=== PATIENT | male | born 1955 | race Caucasian/White ===

== ENCOUNTER 2018-06-10 08:05 | Day surgery (SDC) | payer BC ==
[2018-06-05 15:03] VITALS: BMI 35.2
[~2018-06-10 08:05] MED LIST: ONDANSETRON 4 MG/2 ML VIAL IVP ONE
[2018-06-10 09:07] VITALS: TEMP 97.6
[2018-06-10] MEDS ORDERED: LIDOCAINE 1% 20 ML VIAL (10MG/ML) FOR IV START INTRADERMA ONE (09:16)
[2018-06-10] MEDS ORDERED: LACTATED RINGERS 1,000 ML IV ONE (09:16)
[2018-06-10] MEDS ORDERED: PROPOFOL 10 MG/ML 20 ML VIAL IV ONE (09:50)
--- NOTE | 2018-06-10 09:54 | P.GSHP ---
History of Present Illness H&P Date: 06/10/18 Chief Complaint: Diarrhea, screening colonoscopy This a 62-year-old male referred from Dr. Ilya Zamarripa. Patient has safer swing colonoscopy. He's had issues with diarrhea. Past Medical History Past Medical History: GERD/Reflux, Hyperlipidemia, Hypertension Additional Past Medical History / Comment(s): FREQUENT DIARRHEA, BLOATING AND ABD. PAIN, HX COLON POLYPS, HX HIATAL HERNIA. History of Any Multi-Drug Resistant Organisms: MRSA Date of last positivie culture/infection: 15-20 YRS AGO MDRO Source:: RIGHT LEG (POST-OP VEIN STRIPPING) Past Surgical History: Cholecystectomy, Hernia Repair, Joint Replacement, Orthopedic Surgery Additional Past Surgical History / Comment(s): BILATERAL KNEE REPLACEMENT. VARICOSE VEIN STRIPPING. EGD. ORIF RT ANKLE, STEPHY FUNDLAPLASTY Past Anesthesia/Blood Transfusion Reactions: No Reported Reaction Smoking Status: Current every day smoker - Past Family History Father Family Medical History: Cancer Medications and Allergies Home Medications Medication Instructions Recorded Confirmed Type Ipratropium/Albuterol Sulfate 1 puff INHALATION RT-HS PRN 09/05/14 06/10/18 History [Combivent Respimat Inhaler] Simvastatin 20 mg PO HS 09/05/14 06/10/18 History Valsartan/Hydrochlorothiazide 0.5 tab PO DAILY 09/05/14 06/10/18 History [Valsartan-Hctz 80-12.5 mg Tab] Aspirin EC [Ecotrin] 81 mg PO HS 12/15/14 06/05/18 History Celecoxib [CeleBREX] 200 mg PO DAILY 04/03/15 06/05/18 History Allergies Allergy/AdvReac Type Severity Reaction Status Date / Time No Known Allergies Allergy Verified 06/05/18 14:58 Surgical - Exam Vital Signs Temp Pulse Resp BP Pulse Ox 97.6 F 57 L 16 134/85 100 06/10/18 09:03 06/10/18 09:03 06/10/18 09:03 06/10/18 09:03 06/10/18 09:03 - General well developed, no distress - Eyes PERRL - ENT normal pinna - Neck no masses - Respiratory normal expansion - Cardiovascular Rhythm: regular - Abdomen Abdomen: soft, non tender Assessment and Plan Assessment: Diarrhea, we'll perform screening colonoscopy.
--- NOTE | 2018-06-10 10:09 | P.OP ---
Date of Procedure: 06/10/18 Preoperative Diagnosis: Screening colonoscopy Diarrhea Postoperative Diagnosis: Normal colonoscopy Sigmoid colon biopsy pathology pending Procedure(s) Performed: Colonoscopy Anesthesia: MAC Surgeon: Mitch Flaherty Pathology: other (Random sigmoid) Condition: stable Disposition: PACU Description of Procedure: PROCEDURE: The patient was placed on the endoscopy table in the lateral position. Digital rectal examination was performed which revealed no abnormalities. The prostate was symmetrical without nodules. Flexible colonoscope was then placed in the patient's anus and passed throughout the entire colon. The ileocecal valve was visualized. The cecum, ascending, transverse, descending and sigmoid colon were normal. Due to the patient's symptoms diarrhea a random biopsied; was performed. The rectum was normal as well. There were no masses, polyps or diverticula noted in the entire colon. SUMMARY OF FINDINGS: Normal colonoscopy.
[2018-06-10 10:23] VITALS: PULSE 53
[2018-06-10 10:35] VITALS: BP 144/82; RESP 18
== END 2018-06-10 11:00 | disposition home or self-care (01) ==
LOC: ORWHC2ENDO 08:05
PROVIDERS: ATTEND Surgery
DX: R19.7 Diarrhea, unspecified (principal); K21.9 Gastro-esophageal reflux disease without esophagitis; I10 Essential (primary) hypertension; E78.5 Hyperlipidemia, unspecified; E66.9 Obesity, unspecified; Z68.35 Body mass index [BMI] 35.0-35.9, adult; F17.210 Nicotine dependence, cigarettes, uncomplicated; Z79.1 Long term (current) use of non-steroidal anti-inflammatories (NSAID); Z79.82 Long term (current) use of aspirin; Z79.899 Other long term (current) drug therapy; Z86.010 Personal history of colon polyps; Z86.14 Personal history of Methicillin resistant Staphylococcus aureus infection; Z96.653 Presence of artificial knee joint, bilateral; Z90.49 Acquired absence of other specified parts of digestive tract; Z80.9 Family history of malignant neoplasm, unspecified
CPT/HCPCS: 45380; 88305; J2704

== ENCOUNTER → 2018-07-31 | Outpatient (CLI) | payer BC ==
--- NOTE | 2018-07-31 08:48 | XR ---
EXAMINATION TYPE: XR chest 2V DATE OF EXAM: 07/31/2018 COMPARISON: NONE HISTORY: Cough and congestion. TECHNIQUE: Frontal and lateral views of the chest are obtained. FINDINGS: Cannot exclude underlying emphysematous changes as there is flattening of hemidiaphragms an d prominent retrosternal airspace on lateral view. There is no focal air space opacity, pleural effu angela, or pneumothorax seen. The cardiac silhouette size is within normal limits. The osseous struc tures are intact. IMPRESSION: No suspicious acute pulmonary process.
== END | disposition home or self-care (01) ==
LOC: RADXRMAIN 08:30
PROVIDERS: ATTEND Family Medicine
DX: R05 Cough (principal); J06.9 Acute upper respiratory infection, unspecified
CPT/HCPCS: 71046

== ENCOUNTER → 2020-10-17 | Outpatient (CLI) | payer MEDICARE ==
--- NOTE | 2020-10-17 10:51 | XR ---
EXAMINATION TYPE: XR lumbar spine 2 or 3V DATE OF EXAM: 10/17/2020 CLINICAL HISTORY: Pain. TECHNIQUE: Frontal and lateral images of the lumbar spine are obtained. COMPARISON: CT abdomen and pelvis May 05, 2015 FINDINGS: There are 5 lumbar type vertebral bodies identified. Bilateral pars defect L5 level with s table severe grade 1 anterolisthesis of L5 on S1. Cwgv-gg-frupgjpl disc space narrowing and vacuum di sc phenomenon L5-S1 level redemonstrated . Mild to moderate multilevel anterior spurring in the lower thoracic and upper lumbar spine. Vertebral body heights are maintained. Vascular calcification overl taniya the abdominal aorta extends into iliac branch vessels. IMPRESSION: As above.
--- NOTE | 2020-10-17 10:53 | XR ---
EXAMINATION TYPE: XR Hip Complete LT DATE OF EXAM: 10/17/2020 CLINICAL HISTORY: Pain. TECHNIQUE: AP and frogleg views of the left hip are obtained. COMPARISON: CT abdomen and pelvis May 05, 2015. FINDINGS: There is no acute fracture/dislocation evident in the left hip. Nmzd-tu-dwuxrusx axial lisy nt space loss left hip redemonstrated with mild acetabular spurring. Femoral head shape is maintained . Sutures overlie the left groin region from prior hernia repair surgery. Occasional surgical clip le ft medial thigh noted. IMPRESSION: As above.
== END | disposition home or self-care (01) ==
LOC: RADXRMAIN 10:10
PROVIDERS: ATTEND Family Medicine
DX: M48.061 Spinal stenosis, lumbar region without neurogenic claudication (principal); M43.16 Spondylolisthesis, lumbar region; M25.552 Pain in left hip; Z98.890 Other specified postprocedural states
CPT/HCPCS: 72100; 73502

== ENCOUNTER 2021-05-31 06:04 | Day surgery (SDC) | payer MEDICARE ==
[2021-05-30 09:01] VITALS: BMI 44.6
[2021-05-31] MEDS ORDERED: LACTATED RINGERS 1,000 ML IV SCH (06:09)
[2021-05-31] MEDS ORDERED: LACTATED RINGERS 1,000 ML IV ONE (06:20)
[2021-05-31 06:30] VITALS: TEMP 97.8
[2021-05-31] MEDS ORDERED: methylPREDNISolone ACETATE 40 MG/ML 1 ML VIAL ONE (07:05)
[2021-05-31] MEDS ORDERED: MIDAZOLAM 2 MG/2 ML VIAL ONE (07:05)
[2021-05-31] MEDS ORDERED: fentaNYL (PF) 50 MCG/ML 2 ML AMP ONE (07:05)
[2021-05-31] MEDS ORDERED: IOPAMIDOL M200 10 ML VIAL ONE (07:05)
--- NOTE | 2021-05-31 07:16 | P.PCN ---
Date of Procedure: 05/31/21 Procedure(s) Performed: PREOPERATIVE DIAGNOSIS: 1- Lumbar Degenerative Disc Diseases 2-Lumbar spondylosis with Facet arthropathy without myelopathy POSTOPERATIVE DIAGNOSIS: Same as preop diagnosis. PROCEDURE 1. Lumbar epidural steroid injection under fluoroscopic guidance at the L5-S1 level. (Fluoroscopy imaging was available in radiology department) 2. Lumbar epidurogram. ANESTHESIA: Local with 1% lidocaine 3 ml and , moderate sedation with intravenous Versed 2 mg ,and fentanyle 100 Mcg EBL: Minimal PROCEDURE INDICATION: The patient with low back pain and radiculitis symptoms unresponsive to conservative treatment. Fluoroscopy was used to optimize visuali zation of the needle placement and to maximize safety. PROCEDURE DESCRIPTION / TECHNIQUE: The patient was seen and identified in the preoperative area. Risks, benefits, complications including but not limited to infections ,bleeding ,allergic reaction to the medications ,nerve damage and not complete pain releife , and alternatives were discussed with the patient. The patient agreed to proceed with the procedure and signed the consent. IV was started, and vital signs were stable. Patient was taken to the OR and time out was completed. The patient was placed in the prone position on procedure table and a pillow was placed under the abdomen to reduce lumbar lordosis. The lumbosacral area was prepped and draped in the usual sterile fashion.ere closely monitored during the procedure. Conscious sedation was used during the procedure to decrease patients anxiety. Vital signs was monitered during the entire procedure. Using anterior-posterior fluoroscopy, the L5-S1 interlaminar space was identified and the skin over this site was marked and then infiltrated with 1% lidocaine subcutaneously. Subsequently, a 18-gauge 6 inches long Tuohy epidural needle was inserted and advanced toward the epidural space using the ``Loss of resistance technique and guided by AP and lateral fluoroscopy. The correct needle position in the epidural space was verified with the injection of 2 mL of the water soluble contrast dye Isovue 200 contrast and observing an excellent epidurogram with the epidural spread of the dye, after negative aspiration for blood and CSF and in the absence of paresthesias. Again after negative aspiration, a 6 ml mixture containing 80 mg of Depo-medrol , and 2 ml of preservative free Normal Saline, and 2 ml of preservative free lidocaine 1% solution was injected and a washout of epidurogram was seen. Needle was withdrawn intact, skin was cleansed, and bandages were applied. COMPLICATIONS: None DISPOSITION / PLANS: The patient was placed in a supine position and transferred to the recovery area in a stable condition for observation. There was no evidence of lower extremity motor or sensory deficit after the procedure. Patient was discharged from the recovery room after meeting discharge criteria. Home discharge instructions were given to the patient by the staff. The patient was reexamined prior to discharge. The patient will schedule a follow up in the clinic in 2-4 weeks.
[2021-05-31] MEDS ORDERED: IV FLUID CONTINUATION 1,000 ML IV ONE ×2 (07:22)
[2021-05-31 07:27] VITALS: RESP 16
--- NOTE | 2021-05-31 07:41 | FL ---
EXAMINATION TYPE: FL guided pain mgmt statistic DATE OF EXAM: 05/31/2021 FLUOROSCOPY Fluoroscopy time of 2 seconds was used during lumbar epidural injection. 1 image/s document/s the pr rina.
[2021-05-31 07:44] VITALS: BP 113/82; PULSE 74
== END 2021-05-31 08:00 | disposition home or self-care (01) ==
LOC: ORPAIN 06:04
PROVIDERS: ATTEND Specialist
DX: M51.36 Other intervertebral disc degeneration, lumbar region (principal); M47.816 Spondylosis without myelopathy or radiculopathy, lumbar region
CPT/HCPCS: 62323; J2250; J1030; J3010; Q9966

== ENCOUNTER → 2021-07-04 | Outpatient (CLI) | payer MEDICARE ==
[2021-07-04 10:18] VITALS: BP 151/92; PULSE 78; RESP 18
[2021-07-04 10:25] VITALS: TEMP 98.2
--- NOTE | 2021-07-04 10:35 | P.PN ---
Subjective Progress Note Date: 07/04/21 This is a 65-year-old morbidly obese gentleman with history of lower back pain with radiation to the left leg down to the left foot as he states. He has occasional numbness and tingling in the left thigh anteriorly. His lumbar spine MRI showed anterolisthesis of L5 on S1 with severe neuroforaminal stenosis on both sides more on the left side than the right side at this level. The patient had lumbar epidural steroid injection in the interlaminar approach was given 20% of pain relief only as he states. He denies any history of treatment with anticoagulants or any history of diabetes. Patient denies new-onset weakness, bowel/bladder incontinence, or any other signs or symptoms of cauda equina syndrome. There are no signs of acute intoxication, and no indications of medication diversion or overuse. In addition to above, 13-point review of systems is also negative for chest pain, shortness of breath, changes in vision, changes in hearing, new onset weakness, abdominal pain, diarrhea, extreme fatigue, malaise, fever, skin changes, homicidal or suicidal ideation, or bowel or bladder incontinence. Vital Signs: Reviewed in EMR Gen: AAOx3, NAD HEENT: PERRLA,hearing grossly normal Pulm: resp unlabored Neck: supple, trachea midline Neuro exam of the lower extremities: Absent deep tendon reflexes bilaterally and normal muscle strength bilaterally. Straight leg raising test: Negative bilaterally Adán's test: Range of motion of the lumbar spine: Facet loading test: Positive in the lumbar area Tenderness in the paravertebral musculature: Positive on the lumbar paravertebral musculature bilaterally Neuro: CN II-XII grossly intact, Imaging: Reviewed in EMR/chart Assessment: Morbid obesity Hypertension Lumbar neuro foraminal stenosis at multiple levels, more at the L5-S1 level on the left side Lumbar spondylosis without myelopathy with positive lumbar facet loading test Limited improvement after interlaminar epidural steroid injection at the L5-S1 level Plan: 1. Explanation: When patients on opioids, opioid and psychological risk scores were reviewed. Diagnoses, prognoses, and multiple treatment options including but not limited to physical therapy, interventional therapies, adjuvant medical therapies, narcotic medication therapies, and surgery were discussed with the patient and all questions were answered to the patient's satisfaction. 2. Opioid agreement:When patients are prescribed opoids through our clinic, opioid agreement is signed with the patient and the patient is warned not to use opioids while driving or before driving and not to combine opioids with benzodiazepines or alcohol. 3. Counseling: When patient is smoking or obese, the patient was counseled extensively on SMOKING CESSATION, BODY MASS INDEX, EXERCISE. Specifically, the patient was instructed regarding the importance of smoking cessation, obesity, and exercise in the context of both chronic pain and overall health. 4. Procedures: We will schedule for transforaminal epidural steroid injection at the L5-S1 level on the left side under fluoroscopic guidance. Hopefully by getting closer to the nerve root we can get more pain improvement. The procedure was explained to the patient and his and their questions were answered. 5. Consultations: None 6. Investigations: None 7. Medications: None prescribed 8. Disposition: Proceed with the above-mentioned procedure as soon as possible 9. Maps were reviewed and were appropriate. PQRS measures: 1-Patient's medications are documented in the chart. 2-Tobacco use is negative, counseling given 3-Patient has had a pneumococcal vaccine. 4-Advanced care planning discussed, patient unable to give 5-Opioid contract not signed with the patient. 6-Pain positive, follow-up visit or procedure scheduled 7-Patient's blood pressure measured and documented above limits. The patient will follow up with his primary care physician. 8-Patient's weight was measured, and body mass index ABOVE the normal limits, and counseling was done. Patient instructed to follow up with PCP. 9-Patient WAS NOT identified as an unhealthy alcohol user. Objective - Vital Signs Vital signs: Vital Signs Temp 98.2 F 07/04/21 10:13 Pulse 78 07/04/21 10:13 Resp 18 07/04/21 10:13 BP 151/92 07/04/21 10:13 Pulse Ox 94 L 07/04/21 10:13 Intake & Output 07/03/21 07/04/21 07/04/21 18:59 06:59 18:59 Weight 149.685 kg
== END ==
LOC: PNWHC3 10:02
PROVIDERS: ATTEND Anesthesiology
DX: M48.07 Spinal stenosis, lumbosacral region (principal); M47.816 Spondylosis without myelopathy or radiculopathy, lumbar region; E66.01 Morbid (severe) obesity due to excess calories; I10 Essential (primary) hypertension; F17.200 Nicotine dependence, unspecified, uncomplicated; Z91.048 Other nonmedicinal substance allergy status; Z68.41 Body mass index [BMI] 40.0-44.9, adult
CPT/HCPCS: 99211

== ENCOUNTER 2021-07-31 08:20 | Day surgery (SDC) | payer MEDICARE ==
[2021-07-30 10:02] VITALS: BMI 46.0
[2021-07-31] MEDS ORDERED: IV FLUID CONTINUATION 1,000 ML IV ONE (08:51)
[2021-07-31] MEDS ORDERED: LACTATED RINGERS 1,000 ML IV ONE (08:51)
[2021-07-31] MEDS ORDERED: MIDAZOLAM 2 MG/2 ML VIAL ONE (08:52)
[2021-07-31] MEDS ORDERED: IOPAMIDOL M200 10 ML VIAL ONE (08:52)
[2021-07-31] MEDS ORDERED: methylPREDNISolone ACETATE 40 MG/ML 1 ML VIAL ONE (08:52)
[2021-07-31] MEDS ORDERED: fentaNYL (PF) 50 MCG/ML 2 ML AMP ONE (08:52)
[2021-07-31 08:56] VITALS: RESP 16; TEMP 97.6
--- NOTE | 2021-07-31 09:09 | P.PCN ---
Date of Procedure: 07/31/21 Description of Procedure: PREOPERATIVE DIAGNOSIS: Lumbar radiculopathy, POSTOPERATIVE DIAGNOSIS: Lumbar radiculopathy PROCEDURE: 1) left-sided L5-S1 Transforaminal epidural steroid injection under fluoroscopic guidance#1 , 2) Epidurogram SURGEON: Karly Caruso [employer] CONSULTANT: None ANESTHESIA: Local , and IV sedationas: Versed, and fentanyl EBL: None. Specimen removed: None Fluoroscopic image: Saved to electronic medical records PROCEDURE INDICATION: The patient with continued lumbar pain with radiculopathy, and intervertebral disc disease without myelopathy that has failed to respond to adequate conservative management. Came here for repeat procedure.. PROCEDURE DESCRIPTION: The patient was seen and identified in the preoperative area. Risks, benefits, complications, and alternatives were discussed with the patient. The patient agreed to proceed with the procedure and signed the consent. IV was started, and vital signs were stable. Patient was taken to the OR and time out was completed. The patient was placed in the prone position on procedure table and a pillow was placed under the abdomen to reduce lumbar lordosis. The lumbosacral area was prepped with ChloraPrep 1 and draped in the usual sterile fashion. Critical pause was taken. Vital signs were closely monitored during the procedure. Using 20 degree ipsilateral oblique fluoroscopy, the chin of the Rob dog of L5 was identified, and the skin and deeper tissues just below was localized with 1% lidocaine. 22-guage 5-inch spinal needle was used for the procedure. The needle was guided by fluoroscopy just underneath the chin of the Rob dog of L5. Under AP fluoroscopy, the needle was advanced to the 6 o'clock position of the L5 pedicle , in lateral view the tip of the needle position conformed. After negative aspiration of CSF and blood and with no paresthesias, 1.5 mL of Isovue-200 contrast dye was injected at each level with excellent anterior epidural spread and outlining of the L5 nerve root, 3 mL of block solution was injected. Block solution contained 40 mg of Depo-Medrol, with 2 mL of normal saline preservative-free. Needle was removed intact, skin was cleansed, and bandages were applied. COMPLICATIONS: None. DISPOSITION : The patient was placed in a supine position and transferred to the recovery area in a stable condition for observation and was discharged from the recovery room after meeting discharge criteria. Home discharge instructions given to the patient by the staff. The patient was reexamined prior to discharge. The patient will schedule follow-up in the clinic in 4 weeks' duration
[2021-07-31] MEDS ORDERED: IV FLUID CONTINUATION 850 ML IV ONE (09:12)
[2021-07-31 09:17] VITALS: PULSE 77
[2021-07-31] MEDS ORDERED: LACTATED RINGERS 1,000 ML IV SCH (09:19)
--- NOTE | 2021-07-31 09:27 | FL ---
EXAMINATION TYPE: FL guided pain mgmt statistic DATE OF EXAM: 07/31/2021 CLINICAL HISTORY: Low back pain. TECHNIQUE: Fluoroscopy. COMPARISON: None. FINDINGS: Fluoroscopic guidance was provided during pain relief procedure performed by Dr. Caruso . A total of 9 seconds of fluoroscopic time was utilized during the procedure and 3 spot images are a cquired. Images acquired shows needle localization and contrast injection lower lumbar spine level. IMPRESSION: As Above.
[2021-07-31 09:28] VITALS: BP 125/87
== END 2021-07-31 09:48 | disposition home or self-care (01) ==
LOC: ORPAIN 08:20
DX: M54.16 Radiculopathy, lumbar region (principal)
CPT/HCPCS: 64483; J2250; J1030; J3010; Q9966; 99152

== ENCOUNTER → 2021-08-27 | Outpatient (CLI) | payer MEDICARE ==
[2021-08-27 09:01] VITALS: BP 123/83; PULSE 76; RESP 18; TEMP 97.3
--- NOTE | 2021-08-27 09:32 | P.PN ---
Subjective Progress Note Date: 08/27/21 Ethan is a 65-year-old male presenting to clinic today for follow-up appointment after a left-sided transforaminal epidural straight injection at L5- S1. Several weeks after the injection he reported increased greater than 50% of his pain reduction. This allowed him decrease his daily activities without interference from pain. However he reports recently with his increased activity such as mowing the lawn, his pain is beginning to return most specifically in the left side of his low back radiating down his left leg. He describes it as a dull aching, numb sensation. Reports his pain is increased with his activities. Pain is relieved with rest and sitting, and medications and interventions. Pl antars procedure he reports his pain was around 2 or 3 out of 10 on 0-10 scale. He reports now on average his pain is a 7 or 8 out of 10. As any bowel or bladder dysfunction, saddle anesthesia, and any other red flag symptoms. Objective - Vital Signs Vital signs: Vital Signs Temp 97.3 F L 08/27/21 08:56 Pulse 76 08/27/21 08:56 Resp 18 08/27/21 08:56 BP 123/83 08/27/21 08:56 Pulse Ox 94 L 08/27/21 08:56 - Exam Physical Examinations : -Constitutiona : Cooperative , not in acute distress . -HEENT : nech : supple , no Lymphadenopathy , normal thyroid size . : eyes : no ptosis , no icterus, no photophobia . - neurologic : Cranial nerve II to XII intact , no focal neurological deffecit . -psychatric : alert , oriented X 3 , appropriate affect , intact judgment and insight . -Lymphatic : no Lymphadenopathy . - musculoskeltal : Lumber spine moter stegnth lower extremities ,thigh and legs 5/5 Right side , 5/5 Left side deep tendon reflexes : normal Knee Jerk , normal ankle Jerk lumber facet Loading Test =positive Right , positive Left Range of motion of the lumbar spine Flexion 30 degrees, extension 10 degrees strait leg raising test = positive at 20 degree Fabere test= negative Limited tenderness over the Sacroiliac joint on the Right , and Left sides Gaenslen test= negative Seated flexion test= negative Distraction test= negative bilaterally Sacroiliac compression test= negative bilaterally Assessment and Plan Assessment: Assessment and plan Assessment: Morbid obesity Hypertension Lumbar neuro foraminal stenosis at multiple levels, more at the L5-S1 level on the left side Lumbar spondylosis without myelopathy with positive lumbar facet loading test Limited improvement after interlaminar epidural steroid injection at the L5-S1 level Plan: Repeat transforaminal epidural steroid injection in the left side at L5-S1 #2 - PQRS measures = - Patient's medications are documented in the chart. -Tobacco use is negative -Patient's has received pneumococcal vaccine. -Advanced care planning discussed, patient not eligible. -Opiate contract not signed. -Pain positive and follow-up visit/procedure is scheduled. -Patient's blood pressure measured 123/83 , and documented in the record ,and patient will follow up with the primary care. -Patient was not identified as an unhealthy alcohol user Time with Patient: Less than 30
== END ==
LOC: PNWHC3 08:47
PROVIDERS: ATTEND Student in an Organized Health Care Education/Training Program
DX: M48.07 Spinal stenosis, lumbosacral region (principal); M47.816 Spondylosis without myelopathy or radiculopathy, lumbar region; E66.01 Morbid (severe) obesity due to excess calories; I10 Essential (primary) hypertension; F17.200 Nicotine dependence, unspecified, uncomplicated; Z91.048 Other nonmedicinal substance allergy status; Z68.42 Body mass index [BMI] 45.0-49.9, adult
CPT/HCPCS: 99211

== ENCOUNTER 2021-10-16 09:40 | Day surgery (SDC) | payer MEDICARE ==
[2021-10-10 10:29] VITALS: BMI 46.0
[~2021-10-16 09:40] MED LIST changes: +LACTATED RINGERS 1,000 ML IV SCH; -ONDANSETRON 4 MG/2 ML VIAL IVP ONE
[2021-10-16 10:23] VITALS: TEMP 97.6
[2021-10-16] MEDS ORDERED: methylPREDNISolone ACETATE 80 MG/ML 1 ML VIAL ONE (10:56)
[2021-10-16] MEDS ORDERED: IOPAMIDOL M200 10 ML VIAL ONE (10:56)
[2021-10-16] MEDS ORDERED: MIDAZOLAM 2 MG/2 ML VIAL ONE (10:56)
[2021-10-16] MEDS ORDERED: fentaNYL (PF) 50 MCG/ML 2 ML AMP ONE (10:56)
[2021-10-16] MEDS ORDERED: LACTATED RINGERS 1,000 ML IV SCH (11:00)
--- NOTE | 2021-10-16 11:15 | P.PCN ---
Date of Procedure: 10/16/21 Description of Procedure: PREOPERATIVE DIAGNOSIS: Lumbar radiculopathy, and degenerative disc disease POSTOPERATIVE DIAGNOSIS: Lumbar radiculopathy and lumbar degenerative disc disease PROCEDURE: 1) left sided L5-S1 Transforaminal epidural steroid injection under fluoroscopic guidance , 2) Epidurogram SURGEON: Karly Caruso TABLE GAMES SUPERVISOR: None ANESTHESIA: Local , and IV sedationas: 2 MG of Versed, and 50 g of fentanyl EBL: None. Specimen removed: None Fluoroscopic image: Saved to electronic medical records PROCEDURE INDICATION: The patient with continued lumbar pain with radiculopathy, and intervertebral disc disease without myelopathy that has failed to respond to adequate conservative management. Patient had previous left L5-S1 transforaminal epidural steroid injection with more than 60% pain relief for one month duration. Came here for repeat procedure. PROCEDURE DESCRIPTION: The patient was seen and identified in the preoperative area. Risks, benefits, complications, and alternatives were discussed with the patient. The patient agreed to proceed with the procedure and signed the consent. IV was started, and vital signs were stable. Patient was taken to the OR and time out was completed. The patient was placed in the prone position on procedure table and a pillow was placed under the abdomen to reduce lumbar lordosis. The lumbosacral area was prepped with ChloraPrep 1 and draped in the usual sterile fashion. Critical pause was taken. Vital signs were closely monitored during the procedure. Using 20 degree ipsilateral oblique fluoroscopy, the chin of the Rob dog of L5 was identified, and the skin and deeper tissues just below was localized with 1% lidocaine. 22-guage 5-inch spinal needle was used for the procedure. The needle was guided by fluoroscopy just underneath the chin of the Rob dog of L5. Under AP fluoroscopy, the needle was advanced to the 6 o'clock position of the L5 pedicle , in lateral view the tip of the needle position conformed. After negative aspiration of CSF and blood and with no paresthesias, 1 mL of Isovue-200 contrast dye was injected at each level with excellent anterior epidural spread and outlining of the L5 nerve root, 3 mL of block solution was injected. Block solution contained 80 mg of Depo-Medrol with 2 mL of normal saline preservative-free. Needle was removed intact, skin was cleansed, and bandages were applied. COMPLICATIONS: None. DISPOSITION : The patient was placed in a supine position and transferred to the recovery area in a stable condition for observation and was discharged from the recovery room after meeting discharge criteria. Home discharge instructions given to the patient by the staff. The patient was reexamined prior to discharge. The patient will schedule follow-up in the clinic in 4 weeks' duration
[2021-10-16 11:19] VITALS: RESP 16
--- NOTE | 2021-10-16 11:19 | FL ---
Fluoroscopy History: Transforaminal epi steroid injection transforaminal lumbar epidural steroid injection. 22 sec fl. 4 images sent.
[2021-10-16 11:30] VITALS: BP 147/65; PULSE 71
[2021-10-16] MEDS ORDERED: IV FLUID CONTINUATION 1,000 ML IV ONE (11:32)
== END 2021-10-16 11:44 | disposition home or self-care (01) ==
LOC: ORPAIN 09:40
DX: M47.817 Spondylosis without myelopathy or radiculopathy, lumbosacral region (principal); M51.16 Intervertebral disc disorders with radiculopathy, lumbar region; I10 Essential (primary) hypertension; J44.9 Chronic obstructive pulmonary disease, unspecified; Z98.890 Other specified postprocedural states; Z91.09 Other allergy status, other than to drugs and biological substances
CPT/HCPCS: 64483; 99152

== ENCOUNTER → 2021-11-12 | Outpatient (CLI) | payer MEDICARE ==
--- NOTE | 2021-11-12 10:38 | P.PN ---
Subjective Progress Note Date: 11/12/21 Principal diagnosis: A 65 yr old male with at side and a history of severe and chronic low back pain secondary to lumbar degenerative disc diseases and lumbar spondylosis with facet arthropathy presents today for a follow up for pain. Pt underwent a series of 3 LESI of the L5-S1 over the course of 4 months. He experienced 60% pain relief with his last LESI but the pain has returned to 2 /10. Pain is constant, sore, dull/ achy in the lower lumbar spine and is sharp/ shooting in character towards the left hip and left lower extremity . Pain is provoked by reclining, lifting and twisting of which escalates to 6 /10. Pain is alleviated with medications, physical therapy 2 years ago, stretches and sitting up. Interventional pain procedures completed include LESI L5-S1 x 3 over 4 month period Patient is currently on Flexeril 10mg and Tylenol OTC Patient denies any side effects of the medication(s), denies excessive drowsiness or sleepiness, denies suicidal ideation and reports that the current pain medication is helping to control the pain and improve activities of daily living. Patient denies any motor or sensory deficits. Patient denies any fever or night sweats, denies any change in the bowel movements or urination. Physical Examination: -Constitutional: Cooperative. Not in acute distress . -HEENT: Neck is supple. No lymphadenopathy. No thyromegaly. Normal thyroid size. Eyes: No ptosis , no icterus, no photophobia. ENT: No auditory deficits. Normal oropharynx. No Thrush. - Respiratory: Chest clear to auscultations bilaterally. No wheezing. No rhonchi. - Cardiovascular: Regular rate and rhythm. S1 / S2 , no S3 , no S4. - Gastrointestinal: Abdomen soft no tenderness. Bowel sounds positive in all four quadrants. No organomegaly. - Genitourinary: Deferred. - Neurologic: Cranial nerve II to XII intact. No focal neurological deficits. - Psychatric: Alert & oriented x 3. Matching mood & appropriate affect. Judgment and insight intact. - Lymphatic: No Lymphadenopathy. - Musculoskeletal: Cervical spine: Muscle bulk/ tone/ strength in the bilateral upper extremities normal. Facet loading test cervical area positive. Lumbar spine: Motor bulk/ tone/ strength lower extremities , thigh and legs : 5/5 Deep tendon reflexes : Normal Knee Jerk. Normal Ankle Jerk . Lumbar Facet Loading Test positive Straight Leg Raise: positive at 30 degree right side/ left side Galilea test: positive right side / left side Range of motion: Flexion of the lumbar spine 60 degrees Range of motion: Extension of the lumbar spine <20 degrees Severe tenderness over the Sacroiliac joint: right side / left side Assessment and plan: Chronic low back pain secondary to lumbar degenerative disc disease , lumbar spondylosis with facet arthropathy without myelopathy Recommendation of Toradol/ Lidocaine combination TPIs of the BL L4-L5, L5-S1 Patient has received a series of 3 steroid injections over a 4-5 month period and should have a holiday before resuming steroid treatment(s) Denies use of aspirin or other anti coagulants Risks/ benefits of procedure discussed and pt verbalized understanding All patient questions answered MAPS reviewed and it was appropriate. Prescription refill for I have spent 31 minutes on patient care today. Dr Dobson was available by phone for the evaluation of this patient. The time was used to review the medical records including relevant urine studies and Prescription history (MAPs), review of the available imaging, evaluation and examination of the patient, coordination of care with the medical staff and if applicable referring physicians, as well as creation of the medical record PQRS Measure Charge Sheet PQRS Narrative: Smoking Status Current every day smoker Pain Intensity [Back] 2 Scale Used Numeric (1 - 10) Hx Alcohol Use (MH) Yes: Rare Home Medications: Ambulatory Orders Simvastatin 20 mg PO HS 09/05/14 Aspirin EC [Ecotrin] 81 mg PO HS 12/15/14 Celecoxib [CeleBREX] 200 mg PO DAILY 04/03/15 Budesonide/Formoterol Fumarate [Symbicort 160-4.5 Mcg Inhaler] 2 puff INHALATION BID PRN 05/30/21 Cholecalciferol (Vitamin D3) [Vitamin D3 (3000 Iu)] 50 mcg PO DAILY 05/30/21 Escitalopram [Lexapro] 10 mg PO DAILY 05/30/21 Losartan-Hctz 50-12.5 mg [Hyzaar 50-12.5] 1 tab PO DAILY 05/30/21 Cyclobenzaprine [Flexeril] 10 mg PO BID PRN 07/04/21 Omeprazole [PriLOSEC] 40 mg PO HS 10/10/21
[2021-11-12 10:58] VITALS: BP 137/97; PULSE 68; RESP 18; TEMP 97.9
== END ==
LOC: PNWHC3 09:06
PROVIDERS: ATTEND Physician Assistant Medical
DX: M51.36 Other intervertebral disc degeneration, lumbar region (principal); M47.816 Spondylosis without myelopathy or radiculopathy, lumbar region; G89.29 Other chronic pain; F17.200 Nicotine dependence, unspecified, uncomplicated; Z91.048 Other nonmedicinal substance allergy status
CPT/HCPCS: 99211

== ENCOUNTER 2021-12-13 12:56 | Day surgery (SDC) | payer MEDICARE ==
[2021-12-12 11:33] VITALS: BMI 45.0
[2021-12-13] MEDS ORDERED: LACTATED RINGERS 1,000 ML IV SCH (13:12)
[2021-12-13] MEDS ORDERED: LIDOCAINE 1% (10MG/ML) FOR IV START INTRADERMA PRN (13:12)
[2021-12-13 13:37] VITALS: RESP 16; TEMP 97
[2021-12-13] MEDS ORDERED: fentaNYL (PF) 50 MCG/ML 2 ML AMP ONE (14:12)
[2021-12-13] MEDS ORDERED: ROPIVACAINE 5MG/ML 20ML VIAL ONE (14:12)
[2021-12-13] MEDS ORDERED: MIDAZOLAM 2 MG/2 ML VIAL ONE (14:12)
[2021-12-13] MEDS ORDERED: KETOROLAC 15 MG/ML 1 ML VIAL ONE (14:12)
--- NOTE | 2021-12-13 14:27 | P.PCN ---
Date of Procedure: 12/13/21 Procedure(s) Performed: Procedure= trigger point injections lumbar paraspinal muscles at L4 5, and L5- S1, bilaterally total of 6 trigger point injected. Preoperative diagnosis= 1-Lumbar degenerative disc disease 2-myofascial pain syndrome lumbar paraspinal muscles 3-lumbar facet arthropathy Postoperative diagnosis=Same as preop Diagnosis . Complication = none Condition= stable Anesthesia= moderate sedation with intravenous Versed 2 mg , and fentanyl 100 micrograms . Indication for the procedure= patient complaining of low back pain , examination was positive for multiple trigger point in the lumbar paraspinal muscles ,and patient diagnosed with sacroiliitis and myofascial pain syndrome, for this reason she was good candidate for trigger point injections. Description of the procedure= procedure risk and benefits discussed with the patient, including but not limited, risk of infection and bleeding, and ALLERGIC reaction to the medication and not complete pain relief and patient agreed with the preceding patient taken to the operating room, placed in prone position or standard monitors applied to the patient then after induction of anesthesia back prepped with chlorhexidine 3 times , then after that. Each of the trigger point injected with 2 mL of the mixture of ropivacaine 0.5%, mixed with 30 mg of Toradol 2 ML of the mixture was injected at each trigger point after negative aspiration, and there was no paresthesia during the injection, injection done by using 25-gauge 3.5 inches spinal needle, patient tolerated the procedure well without any complications, total of 6 trigger point injected, 3 trigger point on the right side lumbar paraspinal muscles at L4 5 and L5-S1, and 3 trigger point injected on the left side lumbar paraspinal muscles at L4 5 and L5-S1
[2021-12-13] MEDS ORDERED: IV FLUID CONTINUATION 1,000 ML IV ONE (14:32)
[2021-12-13 14:47] VITALS: BP 110/75; PULSE 71
[2021-12-13] MEDS ORDERED: KETOROLAC 30 MG/ML 1 ML VIAL IM ONE (18:00)
== END 2021-12-13 15:12 | disposition home or self-care (01) ==
LOC: ORPAIN 12:56
PROVIDERS: ATTEND Specialist
DX: M51.36 Other intervertebral disc degeneration, lumbar region (principal); M79.18 Myalgia, other site
CPT/HCPCS: 20553; J2250; J3010; J1885; J2795

== ENCOUNTER → 2021-12-17 | Outpatient (CLI) | payer MEDICARE ==
--- NOTE | 2021-12-17 12:01 | ECHOF ---
Referral Reason:R06.02 SOB MEASUREMENTS -------- HEIGHT: 180.3 cm WEIGHT: 147.4 kg BP: RVIDd: 4.3 cm (< 3.3) IVSd: 1.2 cm (0.6 - 1.1) LVIDd: 4.9 cm (3.9 - 5.3) LVPWd: 1.3 cm (0.6 - 1.1) IVSs: 2.2 cm LVIDs: 3.1 cm LVPWs: 1.9 cm Ao Diam: 4.1 cm (2.0 - 3.7) AV Cusp: 2.2 cm (1.5 - 2.6) LA Diam: 3.5 cm (2.7 - 3.8) MV EXCURSION: 19.089 mm (> 18.000) MV EF SLOPE: 123 mm/s (70 - 150) EPSS: 0.9 cm MV E Bartolo: 0.40 m/s MV DecT: 268 ms MV A Bartolo: 0.77 m/s MV E/A Ratio: 0.52 RAP: 5.00 mmHg RVSP: 8.53 mmHg TAPSE: 23.86 mm FINDINGS -------- This was a technically difficult study with suboptimal views. The left ventricular size is normal. There is mild concentric left ventricular hypertrophy. Overa ll left ventricular systolic function is normal with, an EF between 55 - 60 %. The right ventricle is severely enlarged. The right ventricular systolic function is normal. , and the LA measures 3.5cm. The right atrial size is normal. Lumason used The aortic valve was not well visualized. The mitral valve is normal. There is trace mitral regurgitation. The tricuspid valve appears structurally normal. Trace tricuspid regurgitation present. Right azalea tricular systolic pressure is normal at < 35 mmHg. The pulmonic valve was not well visualized. The aortic root size is normal. IVC Not well visulized. There is no pericardial effusion. CONCLUSIONS -------- 1. The left ventricular size is normal. 2. There is mild concentric left ventricular hypertrophy. 3. Overall left ventricular systolic function is normal with, an EF between 55 - 60 %. 4. The right ventricle is severely enlarged. 5. The right ventricular systolic function is normal. 6. There is trace mitral regurgitation. 7. Trace tricuspid regurgitation present. 8. There is no pericardial effusion. TRAFFIC SUPERINTENDENT: Lisa Isabel RDCS
== END | disposition home or self-care (01) ==
LOC: RADECHMAIN 11:05
PROVIDERS: ATTEND Family Medicine
DX: I51.7 Cardiomegaly (principal)
CPT/HCPCS: C8929; Q9950; 93306

== ENCOUNTER → 2022-01-03 | Outpatient (CLI) | payer MEDICARE ==
[2022-01-03 11:38] VITALS: BP 149/100; PULSE 70; RESP 18; TEMP 98
--- NOTE | 2022-01-03 11:54 | P.PN ---
Subjective Progress Note Date: 01/03/22 Principal diagnosis: A 66 yr old male with at side with a history of severe and chronic low back pain secondary to lumbar degenerative disc diseases and lumbar spondylosis with facet arthropathy presents today for evaluation status post TPI of the bilateral L4-L5, L5-S1. Patient states he experienced 60% pain relief for one week status post procedure. Pain level is currently at 5 out of 10 in intensity, constant, sore, achy in the lower aspects of his lumbar spine with radiation of soreness left and right of midline over the paraspinal muscles bilaterally. Denies left lower extremity shooting pain from what he once had. Pain is provoked by bending or lifting. Pain is alleviated with medication, injections, physical therapy 1 year ago then was discharged, chiropractic treatments 1 year ago then the doctor discharge him, home stretching regimen weekly, massage therapy one year ago which was beneficial, use of a recliner, hot showers and rest. Interventional pain procedures completed include L TFESI L5-S1 #3 Patient is currently on Tylenol OTC Patient denies any side effects of the medication(s), denies excessive drowsiness or sleepiness, denies suicidal ideation and reports that the current pain medication is helping to control the pain and improve activities of daily living. Patient denies any motor or sensory deficits. Patient denies any fever or night sweats, denies any change in the bowel movements or urination. Physical Examination: -Constitutional: Cooperative. Not in acute distress . -HEENT: Neck is supple. No lymphadenopathy. No thyromegaly. Normal thyroid size. Eyes: No ptosis , no icterus, no photophobia. ENT: No auditory deficits. Normal oropharynx. No Thrush. - Respiratory: Chest clear to auscultations bilaterally. No wheezing. No rhonchi. - Cardiovascular: Regular rate and rhythm. S1 / S2 , no S3 , no S4. - Gastrointestinal: Abdomen soft no tenderness. Bowel sounds positive in all four quadrants. No organomegaly. - Genitourinary: Deferred. - Neurologic: Cranial nerve II to XII intact. No focal neurological deficits. - Psychatric: Alert & oriented x 3. Matching mood & appropriate affect. Judgment and insight intact. - Lymphatic: No Lymphadenopathy. - Musculoskeletal: Cervical spine: Muscle bulk/ tone/ strength in the bilateral upper extremities normal. Facet loading test cervical area positive. Lumbar spine: Motor bulk/ tone/ strength lower extremities , thigh and legs : 5/5 Deep tendon reflexes : Normal Knee Jerk. Normal Ankle Jerk . Vertebral body tenderness to palpation over L5, S1 Lumbar Facet Loading Test positive Straight Leg Raise: positive at 30 degrees right side/ left side Gaenslen's Test positive Sacral spine : Severe tenderness over the Sacroiliac joint: right side / left side Range of motion: Flexion of the lumbar spine <60 degrees Range of motion: Extension of the lumbar spine <20 degrees Gaenslen's Test positive Galilea test: positive right side / left side Assessment and plan: Chronic low back pain secondary to lumbar degenerative disc disease , lumbar spondylosis with facet arthropathy without myelopathy Recommendation of left TFESI L5-S1. Risks, benefits of procedure discussed and patient verbalized understanding. Admits to aspirin 81 mg use. Protocol for discontinuation/continuation of medications jass-procedure discussed. Denies medical history of diabetes. All patient questions answered MAPS reviewed and it was appropriate. I have spent 31 minutes on patient care today. Dr Dobson was available by phone for the evaluation of this patient. The time was used to review the medical records including relevant urine studies and Prescription history (MAPs), review of the available imaging, evaluation and examination of the patient, coordination of care with the medical staff and if applicable referring physicians, as well as creation of the medical record Objective - Vital Signs Vital signs: Vital Signs Temp 98.0 F 01/03/22 11:26 Pulse 70 01/03/22 11:26 Resp 18 01/03/22 11:26 BP 149/100 01/03/22 11:26 Pulse Ox 93 L 01/03/22 11:26 PQRS Measure Charge Sheet Mode of Arrival: Ambulatory - Pain Location Lower Medial Back Non-Pharmacological Interventions: Heat, Ice, Sitting, Stretching Pharmacological Interventions: Epidural, PRN Medication PQRS Narrative: Smoking Status Current every day smoker Blood Pressure 149/100 Pain Intensity [Lower Medial 5 Back] Scale Used Numeric (1 - 10) Hx Alcohol Use (MH) Yes: Rare Home Medications: Ambulatory Orders Simvastatin 20 mg PO HS 09/05/14 Aspirin EC [Ecotrin] 81 mg PO HS 12/15/14 Celecoxib [CeleBREX] 200 mg PO DAILY 04/03/15 Cholecalciferol (Vitamin D3) [Vitamin D3 (3000 Iu)] 50 mcg PO DAILY 05/30/21 Escitalopram [Lexapro] 10 mg PO DAILY 05/30/21 Losartan-Hctz 50-12.5 mg [Hyzaar 50-12.5] 1 tab PO DAILY 05/30/21 Cyclobenzaprine [Flexeril] 10 mg PO BID PRN 07/04/21 Omeprazole [PriLOSEC] 40 mg PO HS 10/10/21 Fluticasone/Umeclidin/Vilanter [Trelegy Ellipta 100-62.5-25] 1 inhalation INHALATION DAILY 12/12/21
== END ==
LOC: PNWHC3 10:38
PROVIDERS: ATTEND Specialist
DX: M51.36 Other intervertebral disc degeneration, lumbar region (principal); M47.816 Spondylosis without myelopathy or radiculopathy, lumbar region; G89.29 Other chronic pain; F17.200 Nicotine dependence, unspecified, uncomplicated; Z91.048 Other nonmedicinal substance allergy status
CPT/HCPCS: 99211

== ENCOUNTER 2022-01-31 08:25 | Day surgery (SDC) | payer MEDICARE ==
[2022-01-30 10:23] VITALS: BMI 44.6
[2022-01-31 08:48] VITALS: TEMP 97
[2022-01-31] MEDS ORDERED: DEXAMETHASONE SOD PHOSPHATE 10 MG/ML 1 ML VIAL ONE (09:24)
[2022-01-31] MEDS ORDERED: fentaNYL (PF) 50 MCG/ML 2 ML AMP ONE (09:24)
[2022-01-31] MEDS ORDERED: IOPAMIDOL M200 10 ML VIAL ONE (09:24)
[2022-01-31] MEDS ORDERED: MIDAZOLAM 2 MG/2 ML VIAL ONE (09:24)
--- NOTE | 2022-01-31 09:40 | P.PCN ---
Date of Procedure: 01/31/22 Description of Procedure: PREOPERATIVE DIAGNOSIS: Lumbar radiculopathy. POSTOPERATIVE DIAGNOSIS: Lumbar radiculopathy. PROCEDURE: 1) left side L5-S1 Transforaminal epidural steroid injection under fluoroscopic guidance, 2) Epidurogram SURGEON: Karly Caruso ANESTHESIA: Local 1% lidocaine, and IV sedation: Versed 1 mg, and fentanyl 50 g. EBL: None. Specimen removed: None Fluoroscopic imaging: saved to electronic medical record PROCEDURE INDICATION: The patient with continued lumbar pain with radiculopathy, and intervertebral disc disease without myelopathy that has failed to respond to adequate conservative management. PROCEDURE DESCRIPTION: The patient was seen and identified in the preoperative area. Risks, benefits, complications, and alternatives were discussed with the patient. The patient agreed to proceed with the procedure and signed the consent. IV was started, and vital signs were stable. Patient was taken to the OR and time out was completed. The patient was placed in the prone position on procedure table and a pillow was placed under the abdomen to reduce lumbar lordosis. The lumbosacral area was prepped with ChloraPrep 1 and draped in the usual sterile fashion. Critical pause was taken. Vital signs were closely monitored during the procedure. Using oblique fluoroscopy,, and cephalad tilt to a wide iliac crest in fluoroscopic image- the chin of the Rob dog L5 was identified, and the skin and deeper tissues just below was localized with 1% lidocaine. 22-guage 5-inch spinal needles were used for the procedure. The needles were guided by fluoroscopy just underneath the chin of the Rob dog of L5. Under AP fluoroscopy, the needles were advanced to the 6 o'clock position of the L5 pedicle. After negative aspiration of CSF and blood and with no paresthesias, 1 mL of Isovue contrast dye was injected anterior epidural spread and outlining of the L5 nerve root. 3 mL of block solution injected after negative aspiration. Block solution contained 10 mg of dexamethasone, 2 ml of preservative-free normal saline. Needle was removed intact, skin was cleansed, and bandages were applied. COMPLICATIONS: None. DISPOSITION : The patient was placed in a supine position and transferred to the recovery area in a stable condition for observation and was discharged from the recovery room after meeting discharge criteria. Home discharge instructions given to the patient by the staff. The patient was reexamined prior to discharge. The patient will schedule follow-up visit in 4 weeks duration.
[2022-01-31] MEDS ORDERED: IV FLUID CONTINUATION 800 ML IV ONE (09:44)
[2022-01-31 10:20] VITALS: PULSE 71; RESP 16
[2022-01-31 10:22] VITALS: BP 117/87
--- NOTE | 2022-01-31 13:07 | FL ---
EXAMINATION TYPE: FL guided pain mgmt statistic DATE OF EXAM: 01/31/2022 CLINICAL HISTORY: Transforaminal epidural injection TECHNIQUE: Fluoroscopic-guided injection FINDINGS: Fluoroscopic guidance was provided during the procedure. A total of 11 seconds of fluorosc opic time was utilized during the procedure and 2 spot images were acquired. IMPRESSION: As Above.
== END 2022-01-31 10:24 | disposition home or self-care (01) ==
LOC: ORPAIN 08:25
DX: M54.16 Radiculopathy, lumbar region (principal); I10 Essential (primary) hypertension; J44.9 Chronic obstructive pulmonary disease, unspecified; Z91.09 Other allergy status, other than to drugs and biological substances; Z96.653 Presence of artificial knee joint, bilateral; Z98.890 Other specified postprocedural states
CPT/HCPCS: 64483; J2250; J1100; J3010; Q9966; 99152

== ENCOUNTER → 2022-02-25 | Outpatient (CLI) | payer MEDICARE ==
[2022-02-25 09:10] VITALS: BP 124/84; PULSE 74; RESP 18
--- NOTE | 2022-02-25 09:16 | P.PN ---
Subjective Progress Note Date: 02/25/22 Principal diagnosis: A 66 yr old male with at side with a history of severe and chronic low back pain secondary to lumbar degenerative disc diseases and lumbar spondylosis with facet arthropathy presents today for evaluation status post left TF BRADFORD L5- S1 #1. He states he experienced 75% pain relief down the left lower extremity x 2 weeks and a 50% pain relief in the lumbar spine x 1 day status post procedure. Pain level is currently at 6 out of 10 in intensity, localized to the left aspect of the lower lumbar spine, sharp in character with pain escalating as high as 10 out of 10 in intensity when walking for periods of 10 minutes or more. Pain is alleviated with occasions (Flexeril from Dr Ortega, Tylenol OTC), injections, repositioning, physical therapy 1 year ago, chiropractic treatments 2 years ago, daily home stretching regimen and rest. Interventional pain procedures completed include L TFESSI L5-S1 x 1 Patient is currently on Flexeril & Tylenol OTC Patient denies any side effects of the medication(s), denies excessive drowsiness or sleepiness, denies suicidal ideation and reports that the current pain medication is helping to control the pain and improve activities of daily living. Patient denies any motor or sensory deficits. Patient denies any fever or night sweats, denies any change in the bowel movements or urination. Physical Examination: -Constitutional: Cooperative. Not in acute distress . -HEENT: Neck is supple. No lymphadenopathy. No thyromegaly. Normal thyroid size. Eyes: No ptosis , no icterus, no photophobia. ENT: No auditory deficits. Normal oropharynx. No Thrush. - Respiratory: Chest clear to auscultations bilaterally. No wheezing. No rhonchi. - Cardiovascular: Regular rate and rhythm. S1 / S2 , no S3 , no S4. - Gastrointestinal: Abdomen soft no tenderness. Bowel sounds positive in all four quadrants. No organomegaly. - Genitourinary: Deferred. - Neurologic: Cranial nerve II to XII intact. No focal neurological deficits. - Psychatric: Alert & oriented x 3. Matching mood & appropriate affect. Judgment and insight intact. - Lymphatic: No Lymphadenopathy. - Musculoskeletal: Cervical spine: Muscle bulk/ tone/ strength in the bilateral upper extremities normal. Facet loading test cervical area positive. Lumbar spine: Motor bulk/ tone/ strength lower extremities , thigh and legs : 5/5 Deep tendon reflexes : Normal Knee Jerk. Normal Ankle Jerk . Vertebral body tenderness to palpation over L5 Lumbar Facet Loading Test positive Straight Leg Raise: positive at 30 degrees right side/ left side Gaenslen's Test positive on the left Sacral spine : Severe tenderness over the Sacroiliac joint: right side / left side Range of motion: Flexion of the lumbar spine <60 degrees Range of motion: Extension of the lumbar spine <20 degrees Gaenslen's Test positive Galilea test: positive right side / left side Assessment and plan: Chronic low back pain secondary to lumbar degenerative disc disease , lumbar spondylosis with facet arthropathy without myelopathy Recommendation of left paramedian BRADFORD L5-S1. Risks, benefits of procedure discussed and patient verbalized understanding. Denies anticoagulant use her medical history of diabetes. Chronic and current use of high-risk medication (Opioids). The patient was counseled about risk of opioid use, psychological risk associated with opioids and was orally counseled to not overuse , divert or sell medications. Pt is to store medication in a safe location. The patient is counseled against driving while using narcotic medications and also not to use alcohol or any illicit recreational drugs. Patient verbalized understanding that the lack of compliance will result in failure to renew narcotic prescription(s) as well as possible discharge from the clinic Diagnoses, prognosis and treatment options including but not limited to physical therapy, surgical interventions, interventional therapies and medication management including narcotics and adjuvant medication were discussed. All patient questions answered MAPS reviewed and it was appropriate. Prescription for [place] 5/325mg 1 tab PO q4h prn pain #18 No Refill. I have spent 31 minutes on patient care today. Dr Dobson was available by phone for the evaluation of this patient. The time was used to review the medical records including relevant urine studies and Prescription history (MAPs ), review of the available imaging, evaluation and examination of the patient, coordination of care with the medical staff and if applicable referring physicians, as well as creation of the medical record Objective - Vital Signs Vital signs: Vital Signs Temp Pulse 74 02/25/22 09:03 Resp 18 02/25/22 09:03 BP 124/84 02/25/22 09:03 Pulse Ox 91 L 02/25/22 09:03 PQRS Measure Charge Sheet Mode of Arrival: Ambulatory - Pain Location Lower Back Non-Pharmacological Interventions: Chiropractic Treatment, Home Exercise, Inactivity, Physical Therapy, Position/Reposition, Sitting, Stretching Pharmacological Interventions: Epidural, PRN Medication PQRS Narrative: Smoking Status Current every day smoker Blood Pressure 124/84 Pain Intensity [Lower Back] 6 Scale Used Numeric (1 - 10) Hx Alcohol Use (MH) Yes: Rare Home Medications: Ambulatory Orders Simvastatin 20 mg PO HS 09/05/14 Aspirin EC [Ecotrin] 81 mg PO HS 12/15/14 Celecoxib [CeleBREX] 200 mg PO DAILY 04/03/15 Cholecalciferol (Vitamin D3) [Vitamin D3 (3000 Iu)] 50 mcg PO DAILY 05/30/21 Escitalopram [Lexapro] 10 mg PO DAILY 05/30/21 Losartan-Hctz 50-12.5 mg [Hyzaar 50-12.5] 1 tab PO DAILY 05/30/21 Cyclobenzaprine [Flexeril] 10 mg PO BID PRN 07/04/21 Omeprazole [PriLOSEC] 40 mg PO HS 10/10/21 Fluticasone/Umeclidin/Vilanter [Trelegy Ellipta 100-62.5-25] 1 inhalation INHALATION DAILY 12/12/21 HYDROcodone/APAP 5-325MG [[place] 5-325] 1 tab PO Q4HR PRN 3 Days #18 tab 02/25/22
== END ==
LOC: PNWHC3 08:34
PROVIDERS: ATTEND Specialist
DX: M51.36 Other intervertebral disc degeneration, lumbar region (principal); M47.816 Spondylosis without myelopathy or radiculopathy, lumbar region; G89.29 Other chronic pain; Z79.891 Long term (current) use of opiate analgesic; F17.200 Nicotine dependence, unspecified, uncomplicated; Z91.048 Other nonmedicinal substance allergy status
CPT/HCPCS: 99211

== ENCOUNTER 2022-04-19 08:37 | Day surgery (SDC) | payer MEDICARE ==
[2022-04-17 13:35] VITALS: BMI 47.4
[~2022-04-19 08:37] MED LIST changes: +LIDOCAINE 1% (10MG/ML) FOR IV START INTRADERMA PRN
[2022-04-19 09:03] VITALS: RESP 16; TEMP 97
[2022-04-19] MEDS ORDERED: MIDAZOLAM 2 MG/2 ML VIAL ONE (09:47)
[2022-04-19] MEDS ORDERED: ROPIVACAINE 5MG/ML 20ML VIAL ONE (09:47)
[2022-04-19] MEDS ORDERED: fentaNYL (PF) 50 MCG/ML 2 ML AMP ONE (09:47)
[2022-04-19] MEDS ORDERED: methylPREDNISolone ACETATE 40 MG/ML 1 ML VIAL ONE (09:47)
--- NOTE | 2022-04-19 10:04 | P.PCN ---
Date of Procedure: 04/19/22 Procedure(s) Performed: PREOPERATIVE DIAGNOSIS : 1- Lumbar spondylosis with Facet Arthropathy without myelopathy . 2- Lumber degenerative disc disease POSTOPERATIVE DIAGNOSIS: 1- Lumbar spondylosis with Facet Arthropathy without myelopathy . 2- Lumber degenerative disc disease PROCEDURE: Diagnostic left L3 , L4 , and L5 medial branch block under fluoroscopy guidance(fluoroscopy images available in the radiology Department ) ( To target the facet joint between left L4-5 , and L5-S1 ) ANESTHESIA:, Monitored anesthesia care as per anesthesia department. EBL: Minimal COMPLICATION: None PROCEDURE INDICATION: Chronic low back pain secondary to Facet arthropathy unresponsive to conservative treatment. PROCEDURE DESCRIPTION: the patient was seen and identified in the preop holding area , risks and benefits and possible complications of the procedure and alternative were discussed with the patient, and the patient agreed to proceed with the procedure and signed the consent and vital signs monitored during the procedure and fluoroscopy was used to maximize the benefit and accuracy of the needle placement, and sedation was given to decrease patient anxiety, patient was taken to the procedure room and placed in prone position vital signs monitored in the back prepped with chlorhexidine X3 then under strict sterile technique using a right oblique fluoroscopy ,the junction of the transverse process and the superior articulating process of the left L3 , L4 , and L5 vertebra which corresponding to the fluoroscopy image of the eye of the Rob dog on the block side for the medial branches and subsequently , after local infiltration of skin and subcu tissuies with Ropivacaine 0.5 % , one mL at each level ,then 22-gauge 5 inches long Quincke-type needles , 3 needle was used , each one of them placed at the junction of the base of the transverse process and the superior articular process at the appropriate level, and the needle was advanced until the periosteum contacted, needle placement confirmed with AP oblique and lateral view and after appropriate needle placement confirmed, and after negative aspiration for heme and CSF and there was no paresthesia 1-1/2 mL of Ropivacaine 0.5% mixed with 40 mg Depo-Medrol , then half mL injected at each level after negative aspiration the needle subsequently removed . At the end of the procedure and the needles removed and a bandage applied after the skin was cleaned the cleaning solution patient taken to recovery room in stable condition and monitors in the recovery room for 20-30 minutes and discharged home in stable condition after discharge criteria met and patient will follow up with the pain clinic in 2-4 weeks
[2022-04-19] MEDS ORDERED: LACTATED RINGERS 1,000 ML IV ONE (10:07)
[2022-04-19] MEDS ORDERED: IV FLUID CONTINUATION 800 ML IV ONE (10:07)
[2022-04-19 10:27] VITALS: BP 121/74; PULSE 68
--- NOTE | 2022-04-19 10:34 | FL ---
EXAMINATION TYPE: FL guided pain mgmt statistic DATE OF EXAM: 04/19/2022 FLUOROSCOPY Fluoroscopy time of 28 seconds was used during left lumbar facet block for back pain. 2 image/s docu ment/s the procedure.
== END 2022-04-19 11:01 | disposition home or self-care (01) ==
LOC: ORPAIN 08:37
PROVIDERS: ATTEND Specialist
DX: G89.29 Other chronic pain (principal); M47.816 Spondylosis without myelopathy or radiculopathy, lumbar region; M51.36 Other intervertebral disc degeneration, lumbar region; I10 Essential (primary) hypertension; E78.5 Hyperlipidemia, unspecified; J44.9 Chronic obstructive pulmonary disease, unspecified; M19.90 Unspecified osteoarthritis, unspecified site; K21.9 Gastro-esophageal reflux disease without esophagitis; Z79.891 Long term (current) use of opiate analgesic; Z79.899 Other long term (current) drug therapy; Z91.09 Other allergy status, other than to drugs and biological substances
CPT/HCPCS: 64493; 64494; J2250; J1030; J3010; J2795

== ENCOUNTER → 2022-05-06 | Outpatient (CLI) | payer MEDICARE ==
[2022-05-06 11:14] VITALS: BP 116/81; PULSE 81; RESP 18; TEMP 98.6
--- NOTE | 2022-05-06 14:25 | P.PAINPG ---
PQRS Measure Charge Sheet Comment: A 66 yr old male with a history of severe and chronic low back pain secondary to lumbar degenerative disc diseases and lumbar spondylosis with facet arthropathy presents today for evaluation s/p L MBB of L4-L5, L5-S1 #1. Pt states he received 90% pain relief x 4 days s/p procedure. Pain level is 8/10 in intensity, constant, sharp/ achy and shooting towards the L hip and LLE. Pain is provoked by standing/ walking for periods of 15 min or more. Pain is alleviated with PT in 2020, chiropractic treatments in 2019 without relief, medications (Flexeril, Neurontin, Celebrex, ASA), repositioning and rest. Interventional pain procedures completed include L MBB L3-L5 x1 Patient is currently on Neurontin, ASA 81mg, Celebrex Patient denies any side effects of the medication(s), denies excessive drowsiness or sleepiness, denies suicidal ideation and reports that the current pain medication is helping to control the pain and improve activities of daily living. Patient denies any motor or sensory deficits. Patient denies any fever or night sweats, denies any change in the bowel movements or urination. Physical Examination: -Constitutional: Cooperative. Not in acute distress . - Neurologic: Cranial nerve II to XII intact. No focal neurological deficits. - Psychatric: Alert & oriented x 3. Matching mood & appropriate affect. Judgment and insight intact. - Musculoskeletal: Cervical spine: Muscle bulk/ tone/ strength in the bilateral upper extremities normal Vertebral body tenderness to palpation over Spurling test positive Distraction test positive Facet loading test positive Thoracic spine Muscle bulk / tone/ strength in the bilateral paraspinal muscles normal Vertebral body tender to palpation over Facet loading test positive Lumbar spine: Motor bulk/ tone/ strength lower extremities , thigh and legs : 5/5 Deep tendon reflexes : Normal Knee Jerk. Normal Ankle Jerk . Vertebral body tenderness to palpation over Lumbar Facet Loading Test positive over L L3-L5 w accompanying paraspinal TTP Straight Leg Raise: positive at 30 degrees right side/ left side Gaenslen's Test positive Sacral spine : Severe tenderness over the Sacroiliac joint: right side / left side Range of motion: Flexion of the lumbar spine <60 degrees Range of motion: Extension of the lumbar spine <20 degrees Gaenslen's Test positive Adán's Test positive Galilea test: positive right side / left side Thigh Thrust Test Sacral Thrust Test Assessment and plan: Chronic low back pain secondary to lumbar degenerative disc disease , lumbar spondylosis with facet arthropathy without myelopathy Recommendation of L facet block of the medial branches L4-L5, L5-S1 #2. May need a series of injections, up until RFA, for optimal pain relief. Risks, benefits of procedure discussed and pt verbalized understanding. Admits to anticoagulant use and denies medical history of diabetes. Protocol for discontinuation/ continuation of medications jass procedure discussed. All patient questions answered MAPS reviewed and it was appropriate. I have spent less than 30 minutes on patient care today. Dr Dobson was available by phone for the evaluation of this patient. The time was used to review the medical records including relevant urine studies and Prescription history (MAPs), review of the available imaging, evaluation and examination of the patient, coordination of care with the medical staff and if applicable referring physicians, as well as creation of the medical record PQRS Narrative: Smoking Status Current every day smoker Hx Alcohol Use (MH) Yes: Rare Home Medications: Ambulatory Orders Simvastatin 20 mg PO HS 09/05/14 Aspirin EC [Ecotrin] 81 mg PO HS 12/15/14 Celecoxib [CeleBREX] 200 mg PO DAILY 04/03/15 Cholecalciferol (Vitamin D3) [Vitamin D3 (3000 Iu)] 50 mcg PO DAILY 05/30/21 Escitalopram [Lexapro] 10 mg PO DAILY 05/30/21 Losartan-Hctz 50-12.5 mg [Hyzaar 50-12.5] 1 tab PO DAILY 05/30/21 Cyclobenzaprine [Flexeril] 10 mg PO BID PRN 07/04/21 Omeprazole [PriLOSEC] 40 mg PO HS PRN 10/10/21 Fluticasone/Umeclidin/Vilanter [Trelegy Ellipta 100-62.5-25] 1 inhalation INHALATION DAILY 12/12/21 HYDROcodone/APAP 5-325MG [[place] 5-325] 1 tab PO Q4HR PRN 3 Days #18 tab 02/25/22 Controlled Substance Measures - Controlled Substance Measures Is patient prescribed a controlled substance at discharge?: No
== END ==
LOC: PNWHC3 10:36
PROVIDERS: ATTEND Specialist
DX: M51.36 Other intervertebral disc degeneration, lumbar region (principal); M47.816 Spondylosis without myelopathy or radiculopathy, lumbar region; G89.29 Other chronic pain; F17.200 Nicotine dependence, unspecified, uncomplicated; Z91.048 Other nonmedicinal substance allergy status
CPT/HCPCS: 99211

== ENCOUNTER → 2022-06-20 | Outpatient (CLI) | payer MEDICARE ==
[2022-06-20 14:20] VITALS: BP 134/72; PULSE 68; RESP 18
--- NOTE | 2022-06-20 14:20 | P.PAINPG ---
PQRS Measure Charge Sheet Comment: A 66 yr old male with a history of severe and chronic low back pain secondary to lumbar degenerative disc diseases and lumbar spondylosis with facet arthropathy without myelopathy presents today for evaluation s/p BL MBB L3-L5 #2. Pt states he received 95% pain relief x 7 days s/p procedure. Pain level is currently at 6 /10 in intensity, constant, localized in the lower aspects of his lumbar spine where it meets his tailbone, sharp in character w shooting towards the BLEs. Pain is provoked by standing/ walking for periods of 20 min or more. Pain is alleviated with PT & chiropractic treatments in 2020, home guided stretches, medications ([place] prn), repositioning and rest. Interventional pain procedures completed include BL MBB L3-L5 x2. Patient is currently on [place] prn Patient denies any side effects of the medication(s), denies excessive drowsiness or sleepiness, denies suicidal ideation and reports that the current pain medication is helping to control the pain and improve activities of daily living. Patient denies any motor or sensory deficits. Patient denies any fever or night sweats, denies any change in the bowel movements or urination. Physical Examination: -Constitutional: Cooperative. Not in acute distress . - Neurologic: Cranial nerve II to XII intact. No focal neurological deficits. - Psychatric: Alert & oriented x 3. Matching mood & appropriate affect. Judgment and insight intact. - Musculoskeletal: Cervical spine: Muscle bulk/ tone/ strength in the bilateral upper extremities normal Vertebral body tenderness to palpation over Spurling test positive Distraction test positive Facet loading test positive Thoracic spine Muscle bulk / tone/ strength in the bilateral paraspinal muscles normal Vertebral body tender to palpation over Facet loading test positive Lumbar spine: Motor bulk/ tone/ strength lower extremities , thigh and legs : 5/5 Deep tendon reflexes : Normal Knee Jerk. Normal Ankle Jerk . Vertebral body tenderness to palpation over Lumbar Facet Loading Test positive over BL L4-L5, L5-S1 w accompanying paraspinal TTP Straight Leg Raise: positive at 30 degrees right side/ left side Gaenslen's Test positive Sacral spine : Severe tenderness over the Sacroiliac joint: right side / left side Range of motion: Flexion of the lumbar spine <60 degrees Range of motion: Extension of the lumbar spine <20 degrees Gaenslen's Test positive Adán's Test positive Galilea test: positive right side / left side Thigh Thrust Test Sacral Thrust Test Assessment and plan: Chronic low back pain secondary to lumbar degenerative disc disease , lumbar spondylosis with facet arthropathy without myelopathy Pt exhibited sufficient and satisfactory pain relief s/p diagnostic procedures. Recommendation of BL RFA L4-L5, L5-S1. Risks, benefits of procedure discussed and pt verbalized understanding. Denies anticoagulant use or medical history of diabetes. All patient questions answered MAPS reviewed and it was appropriate. I have spent less than 30 minutes on patient care today. Dr Dobson was available by phone for the evaluation of this patient. The time was used to review the medical records including relevant urine studies and Prescription history (MAPs), review of the available imaging, evaluation and examination of the patient, coordination of care with the medical staff and if applicable referring physicians, as well as creation of the medical record PQRS Narrative: Smoking Status Current every day smoker Hx Alcohol Use (MH) Yes: Rare Home Medications: Ambulatory Orders Simvastatin 20 mg PO HS 09/05/14 Aspirin EC [Ecotrin] 81 mg PO HS 12/15/14 Celecoxib [CeleBREX] 200 mg PO DAILY 04/03/15 Cholecalciferol (Vitamin D3) [Vitamin D3 (3000 Iu)] 50 mcg PO DAILY 05/30/21 Escitalopram [Lexapro] 10 mg PO DAILY 05/30/21 Losartan-Hctz 50-12.5 mg [Hyzaar 50-12.5] 1 tab PO DAILY 05/30/21 Cyclobenzaprine [Flexeril] 10 mg PO BID PRN 07/04/21 Omeprazole [PriLOSEC] 40 mg PO DAILY 10/10/21 Fluticasone/Umeclidin/Vilanter [Trelegy Ellipta 100-62.5-25] 1 inhalation INHALATION DAILY PRN 12/12/21 HYDROcodone/APAP 5-325MG [[place] 5-325] 1 tab PO Q4HR PRN 3 Days #18 tab 02/25/22 Gabapentin [Neurontin] 100 mg PO BID 05/06/22 Controlled Substance Measures - Controlled Substance Measures Is patient prescribed a controlled substance at discharge?: No
== END ==
LOC: PNWHC3 13:27
PROVIDERS: ATTEND Specialist
DX: M47.816 Spondylosis without myelopathy or radiculopathy, lumbar region (principal); M51.36 Other intervertebral disc degeneration, lumbar region; G89.29 Other chronic pain; F17.200 Nicotine dependence, unspecified, uncomplicated; Z91.048 Other nonmedicinal substance allergy status
CPT/HCPCS: 99211

== ENCOUNTER → 2022-07-12 | Outpatient (CLI) | payer MEDICARE ==
--- NOTE | 2022-07-12 14:06 | XR ---
EXAMINATION TYPE: XR knee complete LT DATE OF EXAM: 07/12/2022 CLINICAL HISTORY: pain TECHNIQUE: Three views of the left knee are obtained. COMPARISON: None. FINDINGS: There is no acute fracture/dislocation. Total knee arthroplasty with femoral and tibial co mponents appearing well seated. The overlying soft tissue appears unremarkable. IMPRESSION: There is no acute fracture or dislocation ICD 10 NO FRACTURE, INITIAL EVALUATION
--- NOTE | 2022-07-12 14:07 | XR ---
EXAMINATION TYPE: XR tibia fibula LT DATE OF EXAM: 07/12/2022 CLINICAL HISTORY: pain TECHNIQUE: AP and lateral images of the left tibia and fibula are obtained. COMPARISON: None. FINDINGS: There is no acute fracture/dislocation evident. The joint spaces appear within normal piña its. The overlying soft tissue appears unremarkable. IMPRESSION: There is no acute fracture or dislocation seen. ICD 10 NO FRACTURE, INITIAL EVALUATION
== END | disposition home or self-care (01) ==
LOC: RADXRMAIN 13:30
PROVIDERS: ATTEND Family Medicine
DX: M79.605 Pain in left leg (principal)

== ENCOUNTER 2022-08-02 09:02 | Day surgery (SDC) | payer MEDICARE ==
[2022-07-31 15:32] VITALS: BMI 44.6
[~2022-08-02 09:02] MED LIST changes: -LIDOCAINE 1% (10MG/ML) FOR IV START INTRADERMA PRN
[2022-08-02 09:23] VITALS: TEMP 96.3
[2022-08-02] MEDS ORDERED: LIDOCAINE 1% (10MG/ML) FOR IV START INTRADERMA ONE (09:25)
[2022-08-02] MEDS ORDERED: MIDAZOLAM 2 MG/2 ML VIAL ONE (09:37)
--- NOTE | 2022-08-02 09:45 | P.PCN ---
Date of Procedure: 08/02/22 Description of Procedure: Patient was placed in the prone position unable to tolerate the positioning. Multiple attempts at positioning the patient were made but the breathing continues to be difficult for him despite the O2 supplementation. His vitals were stable with the patient reported he was unable to take deep breaths and was uncomfortable. The procedure was aborted. No injections were done. Patient had gone 2 mg of Versed and 0 g of fentanyl. We will recommended the patient follow-up with his primary care physician before rescheduling the procedure.
[2022-08-02] MEDS ORDERED: IV FLUID CONTINUATION 900 ML IV ONE (09:52)
[2022-08-02 10:10] VITALS: BP 130/87; PULSE 85; RESP 20
== END 2022-08-02 10:21 ==
LOC: ORPAIN 09:02
PROVIDERS: ATTEND Hospitalist
DX: M54.50 Low back pain, unspecified (principal); Z53.8 Procedure and treatment not carried out for other reasons; Z91.09 Other allergy status, other than to drugs and biological substances

== ENCOUNTER → 2022-08-19 | Outpatient (CLI) | payer MEDICARE ==
[2022-08-19 13:30] VITALS: BP 114/84; PULSE 70; RESP 18; TEMP 97.9
--- NOTE | 2022-08-19 14:44 | P.PAINPG ---
PQRS Measure Charge Sheet Comment: A 66 yr old male w at side with a history of severe and chronic low back pain x 1 yr secondary to lumbar degenerative disc diseases and lumbar spondylosis with facet arthropathy without myelopathy presents today for LBP. He could not complete BL RFA at last OR visit due to difficulty breathing. Pain le kristine is currently at 6/10 in intensity, constant, localized in the L lumbar spine, sharp/ achy in character w shooting towards the LLE and L foot. Pain is provoked by standing/ walking for periods of 15 min or more. Pain is alleviated with PT x 6 wks, then additional 6 wks integrated w massage in 2020, use of hand weights as home exercise regimen, chiropractic treatments weekly until started PT in 2020, meds ([place]), repositioning and rest. Interventional pain procedures completed include L MBB L3-L5 x2 Patient is currently on [place] 5/325mg prn Patient denies any side effects of the medication(s), denies excessive drowsiness or sleepiness, denies suicidal ideation and reports that the current pain medication is helping to control the pain and improve activities of daily living. Patient denies any motor or sensory deficits. Patient denies any fever or night sweats, denies any change in the bowel movements or urination. Physical Examination: -Constitutional: Cooperative. Not in acute distress . - Neurologic: Cranial nerve II to XII intact. No focal neurological deficits. - Psychatric: Alert & oriented x 3. Matching mood & appropriate affect. Judgment and insight intact. - Musculoskeletal: Cervical spine: Muscle bulk/ tone/ strength in the bilateral upper extremities normal Vertebral body tenderness to palpation over Spurling test positive Distraction test positive Facet loading test positive Thoracic spine Muscle bulk / tone/ strength in the bilateral paraspinal muscles normal Vertebral body tender to palpation over Facet loading test positive Lumbar spine: Motor bulk/ tone/ strength lower extremities , thigh and legs : 5/5 Deep tendon reflexes : Normal Knee Jerk. Normal Ankle Jerk . Vertebral body tenderness to palpation over Lumbar Facet Loading Test positive Jump Reflex over L L4-L5, L5-S1 facets Straight Leg Raise: positive at 30 degrees right side/ left side Gaenslen's Test positive Sacral spine : Severe tenderness over the Sacroiliac joint: right side / left side Range of motion: Flexion of the lumbar spine <60 degrees Range of motion: Extension of the lumbar spine <20 degrees Gaenslen's Test positive Adán's Test positive Galilea test: positive right side / left side Thigh Thrust Test Sacral Thrust Test Assessment and plan: Chronic low back pain secondary to lumbar degenerative disc disease , lumbar spondylosis with facet arthropathy without myelopathy Recommendation of L RFA L4-L5, L5-S1. Will need med clearance from his PCP re: difficulty breathing while laying supine. Risks, benefits of procedure discussed and pt verbalized understanding. Admits to anticoagulant use or medical history of diabetes. Protocol for discontinuation/ continuation of medications jass procedure discussed. Chronic and current use of high-risk medication (Opioids). The patient was counseled about risk of opioid use, psychological risk associated with opioids and was orally counseled to not overuse , divert or sell medications. Pt is to store medication in a safe location. The patient is counseled against driving while using narcotic medications and also not to use alcohol or any illicit recreational drugs. Patient verbalized understanding that the lack of compliance will result in failure to renew narcotic prescription(s) as well as possible discharge from the clinic Diagnoses, prognosis and treatment options including but not limited to physical therapy, surgical interventions, interventional therapies and medication management including narcotics and adjuvant medication were discusse d. All patient questions answered MAPS reviewed and it was appropriate. Prescription refill for [place] #18 NR I have spent less than 30 minutes on patient care today. Dr Dobson was available by phone for the evaluation of this patient. The time was used to review the medical records including relevant urine studies and Prescription history (MAPs), review of the available imaging, evaluation and examination of the patient, coordination of care with the medical staff and if applicable referring physicians, as well as creation of the medical record PQRS Narrative: Smoking Status Current every day smoker Hx Alcohol Use (MH) Yes: Rare Home Medications: Ambulatory Orders Simvastatin 20 mg PO HS 09/05/14 Aspirin EC [Ecotrin] 81 mg PO HS 12/15/14 Celecoxib [CeleBREX] 200 mg PO DAILY 04/03/15 Cholecalciferol (Vitamin D3) [Vitamin D3 (3000 Iu)] 50 mcg PO DAILY 05/30/21 Escitalopram [Lexapro] 10 mg PO DAILY 05/30/21 Losartan-Hctz 50-12.5 mg [Hyzaar 50-12.5] 1 tab PO DAILY 05/30/21 Cyclobenzaprine [Flexeril] 10 mg PO BID PRN 07/04/21 Omeprazole [PriLOSEC] 40 mg PO DAILY 10/10/21 Fluticasone/Umeclidin/Vilanter [Trelegy Ellipta 100-62.5-25] 1 inhalation INHALATION DAILY PRN 12/12/21 Gabapentin [Neurontin] 300 mg PO BID 07/31/22 HYDROcodone/APAP 5-325MG [[place] 5-325] 1 tab PO Q4HR PRN 3 Days #18 tab 08/19/22 Controlled Substance Measures - Controlled Substance Measures Is patient prescribed a controlled substance at discharge?: Yes When asked, does pt state using other controlled substances?: No If Rx opioid, was Start Talking consent form obtained?: Yes If opioid is for acute pain is fill amount 7 days or less?: Yes Was information provided regarding opioid addiction?: Yes
== END ==
LOC: PNWHC3 12:44
PROVIDERS: ATTEND Specialist
DX: M47.816 Spondylosis without myelopathy or radiculopathy, lumbar region (principal); G89.29 Other chronic pain; M51.36 Other intervertebral disc degeneration, lumbar region; Z79.01 Long term (current) use of anticoagulants; E11.9 Type 2 diabetes mellitus without complications; Z91.048 Other nonmedicinal substance allergy status; F17.200 Nicotine dependence, unspecified, uncomplicated; Z79.82 Long term (current) use of aspirin
CPT/HCPCS: 99211

== ENCOUNTER 2022-09-27 06:03 | Day surgery (SDC) | payer MEDICARE ==
[2022-09-27] MEDS ORDERED: LACTATED RINGERS 1,000 ML IV SCH ×2 (06:32→08:15)
[2022-09-27] MEDS ORDERED: LIDOCAINE 1% (10MG/ML) FOR IV START INTRADERMA PRN (06:32)
[2022-09-27 06:47] VITALS: TEMP 97.8
[2022-09-27] MEDS ORDERED: TRIAMCINOLONE ACETONIDE 40 MG/ML 1 ML VIAL ONE (07:37)
[2022-09-27] MEDS ORDERED: ROPIVACAINE 5 MG/ML 20 ML AMPULE ONE (07:37)
[2022-09-27] MEDS ORDERED: fentaNYL (PF) 50 MCG/ML 2 ML AMP ONE (07:39)
[2022-09-27] MEDS ORDERED: MIDAZOLAM 2 MG/2 ML VIAL ONE (07:39)
--- NOTE | 2022-09-27 08:17 | P.PCN ---
Date of Procedure: 09/27/22 Description of Procedure: Pre- and Post-operative Diagnosis: Lumbar facet arthropathy, and lumbar spon dylosis without myelopathy. Procedure: Left side L4-5 radiofrequency thermocoagulation of medial branch under fluoroscopic guidance Left side L5-S1 dorsal ramus radiofrequency thermocoagulation under fluoroscopic guidance Surgeon: Karly Santo Anesthesia: Local: 1% Lidocaine, IV sedation : Midazolam 2 mg, and fentanyl 100 micrograms. Complications: None Estimated blood loss: None. Specimen removed: None Fluoroscopic image: Saved to patient electronic medical records. Indications for Procedure: The patient is well known to pain clinic for his chronic low back pain management. The lumbar facet loading test was positive with a clinical diagnosis of lumbar facet arthropathy. Patient had marked decrease in pain after the diagnostic medial branch procedure. Came here for radiofrequency ablation for longer pain relief. PROCEDURE DESCRIPTION: The patient was seen and identified in the preoperative area. Risks, benefits, complications, and alternatives were discussed with the patient. The patient agreed to proceed with the procedure and signed the consent. IV was started. Vital signs were stable. Patient was taken to the procedure room and timeout was completed. The patient was placed in the prone position on procedure table and a pillow was placed under the abdomen to reduce lumbar lordosis. The lumbosacral area was prepped and draped in the usual sterile fashion. Critical pause was taken. Vital signs were closely monitored during the procedure. The fluoroscopic camera was placed in the anteroposterior position to identify the junction of superior articular process and its corresponding injection with its transverse process of L4, L5, S1, which were anesthetized with 1% lidocaine. We used 18-gauge 150-mm curved, sharp radiofrequency cannula with 10- mm active tip for the procedure. The first cannula was guided by fluoroscopy to the S1 superior articular process and its corresponding junction with its ala. The second cannula was guided by fluoroscopy into the L5 superior articular process and its corresponding junction with its transverse process and pedicle. The third cannula was guided by fluoroscopy into the L4 SAP and its corresponding junction with its transverse process and its pedicle. After confirmation of needle tip position on oblique view, each site underwent motor testing at 2 Hz and 0 to 2.5 volts, and there was good motor stimulation in the back and no radicular symptoms or paresthesias. After confirmation of motor testing, 0.5 mL of block solution injected at each site . Block solution contained 2 mL of 0.5% ropivacaine preservative free mixed with 40 MG of Kenalog. At this time, each site was ablated using continuous radiofrequency mode at 80 degrees Celsius for 90 seconds at each level. At the end of the procedure, each needle was retracted approximately 1 cm and the skin was infiltrated with 0.5% ropivacaine preservative free 1 ml at each site. Skin was cleansed and bandages were applied. Disposition : The patient tolerated the procedure very well. The patient was transferred to the recovery room and remained stable until discharged home. The patient was given detailed discharge instructions for infection, bleeding, and increased pain at the injection site, and was advised to seek immediate medical attention should significant side effects develop. The patient will be scheduled with Pain Clinic within 4 weeks.
[2022-09-27] MEDS ORDERED: IV FLUID CONTINUATION 1,000 ML IV ONE (08:20)
--- NOTE | 2022-09-27 08:20 | FL ---
Intraoperative/procedural fluoroscopic services were provided for radiofrequency left lumbar. Total f luoroscopy time is 36 seconds with a total of 5 submitted images to PACS. Please see the operative no te for further details.
[2022-09-27 08:40] VITALS: BP 112/78; PULSE 72; RESP 18
== END 2022-09-27 08:45 | disposition home or self-care (01) ==
LOC: ORPAIN 06:03
DX: M47.816 Spondylosis without myelopathy or radiculopathy, lumbar region (principal); G89.29 Other chronic pain; I10 Essential (primary) hypertension; E78.00 Pure hypercholesterolemia, unspecified; J44.9 Chronic obstructive pulmonary disease, unspecified; G62.9 Polyneuropathy, unspecified; K21.9 Gastro-esophageal reflux disease without esophagitis; E66.9 Obesity, unspecified; Z68.42 Body mass index [BMI] 45.0-49.9, adult; Z79.1 Long term (current) use of non-steroidal anti-inflammatories (NSAID); Z79.891 Long term (current) use of opiate analgesic; Z79.51 Long term (current) use of inhaled steroids; Z79.02 Long term (current) use of antithrombotics/antiplatelets; Z79.82 Long term (current) use of aspirin; Z79.811 Long term (current) use of aromatase inhibitors; Z91.040 Latex allergy status; Z96.653 Presence of artificial knee joint, bilateral; Z98.890 Other specified postprocedural states; Z79.899 Other long term (current) drug therapy
CPT/HCPCS: 64635; 64636; J2250; J3301; J3010; J2795

== ENCOUNTER → 2022-10-16 | Outpatient (CLI) | payer MEDICARE ==
[2022-10-16 13:24] VITALS: BP 148/96; PULSE 80; RESP 16; TEMP 98.2
--- NOTE | 2022-10-16 13:58 | P.PN ---
Subjective Progress Note Date: 10/16/22 This is a follow-up visit for this 66 years old male with a chronic history of severe low back pain his diagnosed with lumbar spondylosis with lumbar facet arthropathy, and lumbar degenerative disc disease, tediously we have done diagnostic medial branch block on the left side 2 and he get excellent pain relief and recently we did RFA of the left-sided medial branch lumbar area at L4 5 and L5-S1, he reported that his low back pain on the left side improved significantly, he continued to have severe low back pain mainly on the right side and he had some pain localized localized over the left buttock area, also previously we have done diagnostic medial branch block on the right side than in May 2022 he gets good pain relief, patient continued to use [place] 5/325 and Neurontin and Celebrex when necessary, he denies any motor or sensory deficit he denies any fever or night sweats he denies any change in the bowel movement or urination Objective - Vital Signs Vital signs: Vital Signs Temp 98.2 F 10/16/22 13:20 Pulse 80 10/16/22 13:20 Resp 16 10/16/22 13:20 BP 148/96 10/16/22 13:20 Pulse Ox 93 L 10/16/22 13:20 FiO2 Intake & Output 10/15/22 10/16/22 10/16/22 18:59 06:59 18:59 Weight 158.757 kg - Exam Physical Examinations : -Constitutiona : Cooperative , not in acute distress . -HEENT : nech : supple , no Lymphadenopathy , normal thyroid size . : eyes : no ptosis , no icterus, no photophobia . - neurologic : Cranial nerve II to XII intact , no focal neurological deffecit . -psychatric : alert , oriented X 3 , appropriate affect , intact judgment and insight . -Lymphatic : no Lymphadenopathy . - musculoskeltal : Lumber spine moter stegnth lower extremities ,thigh and legs 5/5 Right side , 5/5 Left side deep tendon reflexes : normal Knee Jerk , normal ankle Jerk lumber facet Loading Test =positive Right . Range of motion of the lumbar spine Flexion 30 degrees, extension 10 degrees strait leg raising test = positive at 60 degree Fabere test= positive Right , and positive LT . Sever tenderness over the iliolumbar ligament area Left sides Assessment and Plan Plan: Assessment and plan= chronic low back pain secondary to lumbar degenerative disc disease , lumbar spondylosis with lumbar facet arthropathy . Left iliolumbar ligament menorrhagia Patient had good pain relief after RFA of the medial branch on the left side L4 5 and L5-S1 he had good pain relief after diagnostic medial branch block on the right side at L4 5 and L5-S1 1 he will be scheduled to have diagnostic medial branch block on the right side lumbar area at L4 5 and L5-S1, and at the same time we can do iliolumbar ligament steroid injections under fluoroscopy guidance Time with Patient: Less than 30
== END ==
LOC: PNWHC3 12:27
PROVIDERS: ATTEND Specialist
DX: M47.816 Spondylosis without myelopathy or radiculopathy, lumbar region (principal); M51.36 Other intervertebral disc degeneration, lumbar region; M24.28 Disorder of ligament, vertebrae; Z91.048 Other nonmedicinal substance allergy status; F17.200 Nicotine dependence, unspecified, uncomplicated
CPT/HCPCS: 99211

== ENCOUNTER → 2023-01-02 | Outpatient (CLI) | payer MEDICARE ==
[2023-01-02 13:14] VITALS: BP 143/97; PULSE 72; RESP 18; TEMP 98.3
--- NOTE | 2023-01-02 15:53 | P.PAINPG ---
PQRS Measure Charge Sheet Comment: A 67 yr old male w at side with a history of severe and chronic LBP secondary to lumbar DDD and spondylosis with facet arthropathy without myelopathy presents today for LBP evaluation. Pt has followed up w a behavioral health specialist and received clearance for SCS trial. Pain level is provoked at 8/10 in intensity, constant, localized in the lumbar spine, stabbing, sharp in character w shooting towards the LLE. Pain is provoked by walking/ standing for periods of 10 min or more. Pain is alleviated with medications, injections, PT x 6 mo, chiropractic treatments twice weekly x 1 yr in 2020, home stretching regimen, repositioning and rest. Interventional pain procedures completed include ESIs L5-Ss1 x2, BL RFA L3-L5, L iliolumbar injection Patient is currently on Tyl [place] Patient denies any side effects of the medication(s), denies excessive drowsiness or sleepiness, denies suicidal ideation and reports that the current pain medication is helping to control the pain and improve activities of daily living. Patient denies any motor or sensory deficits. Patient denies any fever or night sweats, denies any change in the bowel movements or urination. Physical Examination: -Constitutional: Cooperative. Not in acute distress . - Neurologic: Cranial nerve II to XII intact. No focal neurological deficits. - Psychatric: Alert & oriented x 3. Matching mood & appropriate affect. Judgment and insight intact. - Musculoskeletal: Cervical spine: Muscle bulk/ tone/ strength in the bilateral upper extremities normal Vertebral body tenderness to palpation over Spurling test positive Distraction test positive Facet loading test positive TTP Thoracic spine Muscle bulk / tone/ strength in the bilateral paraspinal muscles normal Vertebral body tender to palpation over Facet loading test positive TTP Lumbar spine: Motor bulk/ tone/ strength lower extremities , thigh and legs : 5/5 Deep tendon reflexes : Normal Knee Jerk. Normal Ankle Jerk . Vertebral body tenderness to palpation over L4, L5 Lumbar Facet Loading Test positive Straight Leg Raise: positive at 30 degrees right side/ left side Gaenslen's Test positive Sacral spine : Severe tenderness over the Sacroiliac joint: right side / left side Range of motion: Flexion of the lumbar spine <60 degrees Range of motion: Extension of the lumbar spine <20 degrees Gaenslen's Test positive right side / left side Galilea test: positive right side / left side Thigh Thrust Test positive right side / left side Sacral Thrust Test positive right side / left side Assessment and plan: Chronic LBP secondary to lumbar DDD, spondylosis with facet arthropathy without myelopathy Recommendation of SCS trial Re: M54.16, G89.4. Risks, benefits of procedure discussed and pt verbalized understanding. Admits to anticoagulant use or medical history of diabetes. Protocol for discontinuation/ continuation of medications jass procedure discussed. All questions answered. I have spent less than 30 minutes on patient care today. Dr Dobson was available by phone for the evaluation of this patient. The time was used to review the medical records including relevant urine studies and Prescription history (MAPs), review of the available imaging, evaluation and examination of the patient, coordination of care with the medical staff and if applicable referring physicians, as well as creation of the medical record PQRS Narrative: Smoking Status Current every day smoker Hx Alcohol Use (MH) Yes: Rare Home Medications: Ambulatory Orders Simvastatin 20 mg PO HS 09/05/14 Aspirin EC [Ecotrin] 81 mg PO HS 12/15/14 Celecoxib [CeleBREX] 200 mg PO DAILY 04/03/15 Cholecalciferol (Vitamin D3) [Vitamin D3 (3000 Iu)] 50 mcg PO DAILY 05/30/21 Escitalopram [Lexapro] 10 mg PO DAILY 05/30/21 Losartan-Hctz 50-12.5 mg [Hyzaar 50-12.5] 1 tab PO DAILY 05/30/21 Cyclobenzaprine [Flexeril] 10 mg PO BID PRN 07/04/21 Omeprazole [PriLOSEC] 40 mg PO DAILY 10/10/21 Fluticasone/Umeclidin/Vilanter [Trelegy Ellipta 100-62.5-25] 1 inhalation INHALATION DAILY PRN 12/12/21 Albuterol Nebulized [Ventolin Nebulized] 2.5 mg IN TID 09/27/22 Multivitamins, Thera [Multivitamin (formulary)] 1 tab PO DAILY 11/19/22 HYDROcodone/APAP 7.5-325MG [L[place]y 7.5-325] 1 tab PO Q12H PRN 30 Days #60 tab 12/11/22 HYDROcodone/APAP 7.5-325MG [L[place]y 7.5-325] 1 tab PO Q12HR PRN 30 Days #60 tab 12/11/22 Controlled Substance Measures - Controlled Substance Measures Is patient prescribed a controlled substance at discharge?: No
== END ==
LOC: PNWHC3 11:45
PROVIDERS: ATTEND Specialist
DX: M51.36 Other intervertebral disc degeneration, lumbar region (principal); M47.816 Spondylosis without myelopathy or radiculopathy, lumbar region; G89.29 Other chronic pain; F17.200 Nicotine dependence, unspecified, uncomplicated; Z79.82 Long term (current) use of aspirin; Z91.048 Other nonmedicinal substance allergy status; Z88.8 Allergy status to other drugs, medicaments and biological substances
CPT/HCPCS: 99211

== ENCOUNTER → 2023-02-05 | Outpatient (CLI) | payer MEDICARE ==
--- NOTE | 2023-02-05 14:59 | P.PAINPG ---
PQRS Measure Charge Sheet Comment: A 67 yr old male w at side with a history of severe and chronic LBP secondary to lumbar DDD and spondylosis with facet arthropathy without myelopathy presents today for LBP evaluation and medication refills. Pt has followed up w a behavioral health specialist and received clearance for SCS trial. Pain level is provoked at 8/10 in intensity, constant, localized in the lumbar spine, stabbing, sharp in character w shooting towards the LLE. Pain is provoked by walking/ standing for periods of 10 min or more. Pain is alleviated with medications, injections, PT x 6 mo, chiropractic treatments twice weekly x 1 yr in 2020, home stretching regimen, repositioning and rest. Interventional pain procedures completed include ESIs L5-Ss1 x2, BL RFA L3-L5, L iliolumbar injection Patient is currently on Tyl Guys Patient denies any side effects of the medication(s), denies excessive drowsiness or sleepiness, denies suicidal ideation and reports that the current pain medication is helping to control the pain and improve activities of daily living. Patient denies any motor or sensory deficits. Patient denies any fever or night sweats, denies any change in the bowel movements or urination. Physical Examination: -Constitutional: Cooperative. Not in acute distress . - Neurologic: Cranial nerve II to XII intact. No focal neurological deficits. - Psychatric: Alert & oriented x 3. Matching mood & appropriate affect. Judgment and insight intact. - Musculoskeletal: Cervical spine: Muscle bulk/ tone/ strength in the bilateral upper extremities normal Vertebral body tenderness to palpation over Spurling test positive Distraction test positive Facet loading test positive TTP Thoracic spine Muscle bulk / tone/ strength in the bilateral paraspinal muscles normal Vertebral body tender to palpation over Facet loading test positive TTP Lumbar spine: Motor bulk/ tone/ strength lower extremities , thigh and legs : 5/5 Deep tendon reflexes : Normal Knee Jerk. Normal Ankle Jerk . Vertebral body tenderness to palpation over L4, L5 Lumbar Facet Loading Test positive Straight Leg Raise: positive at 30 degrees right side/ left side Gaenslen's Test positive Sacral spine : Severe tenderness over the Sacroiliac joint: right side / left side Range of motion: Flexion of the lumbar spine <60 degrees Range of motion: Extension of the lumbar spine <20 degrees Gaenslen's Test positive right side / left side Galilea test: positive right side / left side Thigh Thrust Test positive right side / left side Sacral Thrust Test positive right side / left side Assessment and plan: Chronic LBP secondary to lumbar DDD, spondylosis with facet arthropathy without myelopathy Behavioral health evaluation re: M54.16, G 89.4. Recommendation of scheduling SCS Trial. Risks, benefits of procedure discussed and pt verbalized understanding. Admits to anticoagulant use or medical history of diabetes. Protocol for discontinuation/ continuation of medications jass procedure discussed. Guys 7.5/325,g #60 w 1 RF filled. All questions answered. I have spent less than 30 minutes on patient care today. Dr Dobson was availab le by phone for the evaluation of this patient. The time was used to review the medical records including relevant urine studies and Prescription history (MAPs), review of the available imaging, evaluation and examination of the patient, coordination of care with the medical staff and if applicable referring physicians, as well as creation of the medical record PQRS Narrative: Smoking Status Current every day smoker Hx Alcohol Use (MH) Yes: Rare Home Medications: Ambulatory Orders Simvastatin 20 mg PO HS 09/05/14 Aspirin EC [Ecotrin] 81 mg PO HS 12/15/14 Celecoxib [CeleBREX] 200 mg PO DAILY 04/03/15 Cholecalciferol (Vitamin D3) [Vitamin D3 (3000 Iu)] 50 mcg PO DAILY 05/30/21 Escitalopram [Lexapro] 10 mg PO DAILY 05/30/21 Losartan-Hctz 50-12.5 mg [Hyzaar 50-12.5] 1 tab PO DAILY 05/30/21 Cyclobenzaprine [Flexeril] 10 mg PO BID PRN 07/04/21 Omeprazole [PriLOSEC] 40 mg PO DAILY 10/10/21 Fluticasone/Umeclidin/Vilanter [Trelegy Ellipta 100-62.5-25] 1 inhalation INHALATION DAILY PRN 12/12/21 Albuterol Nebulized [Ventolin Nebulized] 2.5 mg IN TID 09/27/22 Multivitamins, Thera [Multivitamin (formulary)] 1 tab PO DAILY 11/19/22 HYDROcodone/APAP 7.5-325MG [Guys 7.5-325] 1 tab PO Q12H PRN 30 Days #60 tab 02/05/23 HYDROcodone/APAP 7.5-325MG [Guys 7.5-325] 1 tab PO Q12HR PRN 30 Days #60 tab 02/05/23 Controlled Substance Measures - Controlled Substance Measures Is patient prescribed a controlled substance at discharge?: Yes When asked, does pt state using other controlled substances?: Yes If prescribed controlled substance>3 days was MAPS reviewed?: Yes
[2023-02-05 15:31] VITALS: BP 113/79; PULSE 77; RESP 18; TEMP 97.6
== END ==
LOC: PNWHC3 13:46
PROVIDERS: ATTEND Specialist
DX: M51.36 Other intervertebral disc degeneration, lumbar region (principal); M47.816 Spondylosis without myelopathy or radiculopathy, lumbar region; G89.29 Other chronic pain; F17.200 Nicotine dependence, unspecified, uncomplicated; Z79.82 Long term (current) use of aspirin; Z91.048 Other nonmedicinal substance allergy status
CPT/HCPCS: 99211

== ENCOUNTER 2023-03-07 10:08 | Day surgery (SDC) | payer MEDICARE ==
[2023-03-04 15:52] VITALS: BMI 48.8
[~2023-03-07 10:08] MED LIST changes: +LIDOCAINE 1% (10MG/ML) FOR IV START INTRADERMA PRN
[2023-03-07 10:50] VITALS: TEMP 97.1
[2023-03-07] MEDS ORDERED: MIDAZOLAM 2 MG/2 ML VIAL ONE (11:10)
[2023-03-07] MEDS ORDERED: ROPIVACAINE 5 MG/ML 20 ML AMPULE ONE (11:10)
[2023-03-07] MEDS ORDERED: fentaNYL (PF) 50 MCG/ML 2 ML AMP ONE (11:10)
[2023-03-07] MEDS ORDERED: KETAMINE 10 MG/ML 20 ML VIAL ONE (11:10)
[2023-03-07] MEDS ORDERED: IV FLUID CONTINUATION 1,000 ML IV ONE (12:24)
[2023-03-07 12:46] VITALS: RESP 18
[2023-03-07 13:19] VITALS: BP 113/67; PULSE 78
--- NOTE | 2023-03-07 13:26 | FL ---
EXAMINATION TYPE: FL guided pain mgmt statistic DATE OF EXAM: 03/07/2023 FLUOROSCOPY Fluoroscopy time of 6 minutes 45 seconds was used during spinal stimulator array implantation. 3 barb ge/s document/s the procedure. DOSE AREA PRODUCT (DAP) UGY*M,MGY*CM: 2.94.
--- NOTE | 2023-03-07 17:09 | P.PCN ---
Date of Procedure: 03/07/23 Procedure(s) Performed: PROCEDURES: 1- spinal cord stimulator trial under fluoroscopic guidance X2 lead (Fluoroscopy images stored on file in radiology department ) (CPT code= 00777 ) X2 2- complex programing of the spinal cord stimulator. PREOPERATIVE DIAGNOSIS: 1-lumbar spondylosis with lumbar facet arthropathy without myelopathy. 2-lumbar degenerative disc disease. 3-morbid obesity POSTOPERATIVE DIAGNOSIS: 1-same as preoperative diagnoses ANESTHESIA: Monitored anesthesia care as per anesthesia department BLOOD LOSS: Minimal. COMPLICATIONS: None. PROCEDURE INDICATIONS: The patient with a history of severe intractable low back pain who failed more conservative treatment measures. Patient had multiple pain interventions procedure and she got short-term benefit from it, patient was a candidate for spinal cord stimulator and she had the psychological testing done and showed that there is no contraindication for the spinal cord stimulator, patient is not interested in having any lumbar surgery PROCEDURE DESCRIPTION: The patient was seen and identified in the preoperative area. Risks, benefits, complications, and alternatives were discussed with the patient. The patient agreed to proceed with the procedure and signed the consent. IV was started.Patient was taken to the operating room and time out was performed.. The Thoracic and lumbar areas were prepped with Druaprep x2 and draped in the usual sterile fashion. Using sterile gowns and gloves, and after covering the fluoroscopic camera with a sterile drape, the procedure was proceeded on with. The fluoroscopic camera was placed in the AP position, and the T12-L1 interlaminar space was identified and localized in the left paramedian trajectory with 0.5% ropivacaine. Under fluoroscopic guidance, a 14 gauge Tuohy epidural needle from the [employer] spinal cord stimulator kit was guided into the interlaminar space. Then using the right oblique fluoroscopy, anterior-posterior fluoroscopy, and [id number]-[id number]-[id number] technique, the epidural space was accessed. The first lead (8 contacts leads from [employer] ) was passed and noted to be in the dorsal portion of the epidural space in the lateral view. Then using anterior-posterior view, the first lead was passed up to the top of T8 vertebra. Subsequently, a second 14 gauge Tuohy epidural needle was inserted just posterior to the first needle and was advanced toward the epidural space in a parallel direction to the first needle. Then using lateral fluoroscopy, anterior-posterior fluoroscopy, and [id number] technique, the epidural space was accessed by the second needle into the same interlaminar space as the first needle. Then a second similar lead was passed and noted to be in the dorsal portion of the epidural space in the lateral view. Then using anterior- posterior view, the second lead was passed up to the top of T 9 vertebra, and was left in a parallel position to the first lead. Subsequently, the leads were tested and they gave good stimulation on the low back area and the lower extremity , then after that the needle was removed and both legs secured using 2-0 silk, and then the dressing applied durind the procedure ,we performed complex programing of the spinal cord stimulator ,we changed pulse width ,amplitude and the frequencey of the stimulation and we got good coverage for the painful area ,the parasthesia overlaped the painfull area ,patients was satesfied withe the stimulation ,we got more than 80 % decrease in the pain level COMPLICATIONS: No acute complications. COMMENTS: Each lead used had 8 contacts with a total of 16 contacts used. DISPOSITION / PLANS: The patient was placed in a supine position and transferred to the recovery area in a stable condition for observation. There was no evidence of lower extremity motor or sensory deficit after the procedure. Patient was discharged from the recovery room after meeting discharge criteria. Home discharge instructions were given to the patient by the staff. The patient was reexamined prior to discharge. Patient will follow up in the pain clinic next week for reevaluation and discussion about the results and possibility of moving forward with a permanent implant
== END 2023-03-07 14:10 | disposition home or self-care (01) ==
LOC: ORPAIN 10:08
PROVIDERS: ATTEND Specialist
DX: M51.36 Other intervertebral disc degeneration, lumbar region (principal); M47.816 Spondylosis without myelopathy or radiculopathy, lumbar region; E66.01 Morbid (severe) obesity due to excess calories; I10 Essential (primary) hypertension; E78.5 Hyperlipidemia, unspecified; J44.9 Chronic obstructive pulmonary disease, unspecified; F17.200 Nicotine dependence, unspecified, uncomplicated; M19.90 Unspecified osteoarthritis, unspecified site; K21.9 Gastro-esophageal reflux disease without esophagitis; Z79.82 Long term (current) use of aspirin; Z79.899 Other long term (current) drug therapy; Z98.890 Other specified postprocedural states; Z88.8 Allergy status to other drugs, medicaments and biological substances; Z68.42 Body mass index [BMI] 45.0-49.9, adult
CPT/HCPCS: 63650; J2250; J3010; J2795; C1897; C1883

== ENCOUNTER → 2023-03-14 | Outpatient (CLI) | payer MEDICARE ==
[2023-03-14 10:17] VITALS: BP 121/78; PULSE 86; RESP 18; TEMP 98.5
--- NOTE | 2023-03-14 11:15 | P.PN ---
Progress Note - Text Progress Note Date: 03/14/23 This is follow-up visit for this 33 years old male with a history of severe low back pain, secondary to lumbar degenerative disc disease, lumbar spondylosis with lumbar facet arthropathy, last week we have done spinal cord stimulator trial, and I placed a percutaneous spinal cord stimulator lead tries 2, and patient here for evaluation about the results of the trial and for the leads removal , patient reported that he got more than 75% improvement of his pain level, and his activity improved significantly, he was able to ambulate freely and he was able to do a lot of activity at home without any pain, he is very satisfied with the result of the trial and he want to proceed with the permanent implant,he reportes his function improved and his pain level improved significantly, he denies any motor or sensory deficit, and today under strict sterile technique was able to remove the percutaneous lead x2 under strict sterile technique, leads removed intact, and the dressing applied and patient will follow up in the pain clinic in a few weeks will schedule patient for the permanent implant of the spinal cord stimulator leads 2 and spinal cord stimulator generator implant
== END ==
LOC: PNWHC3 09:37
PROVIDERS: ATTEND Specialist
DX: M51.36 Other intervertebral disc degeneration, lumbar region (principal); M47.816 Spondylosis without myelopathy or radiculopathy, lumbar region; Z91.048 Other nonmedicinal substance allergy status; F17.200 Nicotine dependence, unspecified, uncomplicated

== ENCOUNTER → 2023-04-02 | Outpatient (CLI) | payer MEDICARE ==
[2023-04-02 13:43] VITALS: BP 181/87; PULSE 73; RESP 18; TEMP 98
--- NOTE | 2023-04-02 15:04 | P.PAINPG ---
PQRS Measure Charge Sheet Comment: A 67 yr old male w at side with a history of severe and chronic LBP secondary to lumbar DDD and spondylosis with facet arthropathy without myelopathy presents today for medication refills. Pt admits to 75% pain relief w SCS trial s/p procedure and has recently had the trial leads removed. Pain level is provoked at 4 /10 in intensity, constant, localized in the lumbar spine, dull/ achy in character w shooting towards sunil BLEs. Pain is provoked by stnading, walking, bending and lifting. Pain is alleviated with PT in 2020, medications, heat, reclining, repositioning and rest. Interventional pain procedures completed include SCS Trial Patient is currently on Stanford Patient denies any side effects of the medication(s), denies excessive drowsiness or sleepiness, denies suicidal ideation and reports that the current pain medication is helping to control the pain and improve activities of daily living. Patient denies any motor or sensory deficits. Patient denies any fever or night sweats, denies any change in the bowel movements or urination. Physical Examination: -Constitutional: Cooperative. Not in acute distress . - Neurologic: Cranial nerve II to XII intact. No focal neurological deficits. - Psychatric: Alert & oriented x 3. Matching mood & appropriate affect. Judgment and insight intact. - Musculoskeletal: Cervical spine: Muscle bulk/ tone/ strength in the bilateral upper extremities normal Vertebral body tenderness to palpation over Spurling test positive Distraction test positive Facet loading test positive TTP Thoracic spine Muscle bulk / tone/ strength in the bilateral paraspinal muscles normal Vertebral body tender to palpation over Facet loading test positive TTP Lumbar spine: Motor bulk/ tone/ strength lower extremities , thigh and legs : 5/5 Deep tendon reflexes : Normal Knee Jerk. Normal Ankle Jerk . Vertebral body tenderness to palpation over [place] Test positive Lumbar Facet Loading Test positive Straight Leg Raise: positive at 30 degrees right side/ left side Gaenslen's Test positive Sacral spine : Severe tenderness over the Sacroiliac joint: right side / left side Range of motion: Flexion of the lumbar spine <60 degrees Range of motion: Extension of the lumbar spine <20 degrees Gaenslen's Test positive right side / left side Galilea test: positive right side / left side Thigh Thrust Test positive right side / left side Sacral Thrust Test positive right side / left side Assessment and plan: Chronic LBP secondary to lumbar DDD, spondylosis with facet arthropathy without myelopathy Recommendation of medication management. Stanford 7.5/325mg #$60 w 1 RF. UDS collected today 04/02/23. All questions answered. I have spent less than 30 minutes on patient care today. Dr Dobson was available by phone for the evaluation of this patient. The time was used to review the medical records including relevant urine studies and Prescription history (MAPs), review of the available imaging, evaluation and examination of the patient, coordination of care with the medical staff and if applicable referring physicians, as well as creation of the medical record PQRS Narrative: Smoking Status Current every day smoker Hx Alcohol Use (MH) Yes: Rare Home Medications: Ambulatory Orders Simvastatin 20 mg PO HS 09/05/14 Aspirin EC [Ecotrin] 81 mg PO HS 12/15/14 Celecoxib [CeleBREX] 200 mg PO DAILY 04/03/15 Cholecalciferol (Vitamin D3) [Vitamin D3 (3000 Iu)] 50 mcg PO DAILY 05/30/21 Escitalopram [Lexapro] 10 mg PO DAILY 05/30/21 Omeprazole [PriLOSEC] 40 mg PO DAILY 10/10/21 Fluticasone/Umeclidin/Vilanter [Trelegy Ellipta 100-62.5-25] 1 inhalation INHALATION DAILY PRN 12/12/21 Albuterol Nebulized [Ventolin Nebulized] 2.5 mg IN TID 09/27/22 Multivitamins, Thera [Multivitamin (formulary)] 1 tab PO DAILY 11/19/22 Losartan/Hydrochlorothiazide [Losartan-Hctz 100-12.5 mg Tab] 1 tab PO DAILY 03/04/23 HYDROcodone/APAP 7.5-325MG [Stanford 7.5-325] 1 tab PO BID PRN 30 Days #60 tab 04/02/23 HYDROcodone/APAP 7.5-325MG [Stanford 7.5-325] 1 tab PO Q12HR PRN 30 Days #60 tab 04/02/23 Controlled Substance Measures - Controlled Substance Measures Is patient prescribed a controlled substance at discharge?: Yes When asked, does pt state using other controlled substances?: Yes If prescribed controlled substance>3 days was MAPS reviewed?: Yes
== END ==
LOC: PNWHC3 10:34
PROVIDERS: ATTEND Specialist
DX: M51.36 Other intervertebral disc degeneration, lumbar region (principal); M47.816 Spondylosis without myelopathy or radiculopathy, lumbar region; Z51.81 Encounter for therapeutic drug level monitoring; G89.29 Other chronic pain; F17.200 Nicotine dependence, unspecified, uncomplicated; Z79.82 Long term (current) use of aspirin; Z91.048 Other nonmedicinal substance allergy status
CPT/HCPCS: 99212

== ENCOUNTER 2023-04-18 11:17 | Day surgery (SDC) | payer MEDICARE ==
[2023-04-18] MEDS ORDERED: LIDOCAINE 1% (10MG/ML) FOR IV START INTRADERMA PRN (11:59)
[2023-04-18 12:14] VITALS: RESP 16; TEMP 98
[2023-04-18] MEDS: LACTATED RINGERS 1,000 ML IV SCH ×2 (12:45→13:16)
[2023-04-18 12:52] LABS: Basophils # (A) 0.1 k/uL (0-0.2); Basophils % (A) 1 %; Eosinophils # (A) 0.2 k/uL (0-0.7); Eosinophils % (A) 3 %; HCT 47.5 % (39.0-53.0); HGB 16.3 gm/dL (13.0-17.5); Lymphocytes # (A) 1.6 k/uL (1.0-4.8); Lymphocytes % (A) 22 %; MCH 32.1 pg (25.0-35.0); MCHC 34.4 g/dL (31.0-37.0); MCV 93.4 fL (80.0-100.0); Mean Platelet Volume 7.5; Monocytes # (A) 0.6 k/uL (0-1.0); Monocytes % (A) 8 %; Neutrophils # (A) 4.9 k/uL (1.3-7.7); Neutrophils % (A) 64 %; Platelet Count 189 k/uL (150-450); RBC 5.08 m/uL (4.30-5.90); RDW 12.6 % (11.5-15.5); WBC 7.6 k/uL (3.8-10.6)
[2023-04-18] MEDS ORDERED: PROPOFOL 10 MG/ML 20 ML VIAL IV ONE (13:14)
[2023-04-18] MEDS ORDERED: KETAMINE 10 MG/ML 20 ML VIAL ONE (13:14)
[2023-04-18] MEDS ORDERED: MIDAZOLAM 2 MG/2 ML VIAL ONE (13:14)
[2023-04-18] MEDS ORDERED: fentaNYL (PF) 50 MCG/ML 2 ML AMP ONE (13:14)
[2023-04-18] MEDS ORDERED: ceFAZolin 1,000 MG VIAL ONE (13:17)
[2023-04-18] MEDS ORDERED: SODIUM CHLORIDE 0.9% 100 ML BAG ONE (13:17)
[2023-04-18] MEDS ORDERED: SODIUM CHLORIDE 0.9% 150 ML with ceFAZolin 3,000 MG IV ONE ×2 (13:17)
[2023-04-18] MEDS ORDERED: LIDOCAINE 2%-EPI 1:100,000 20 ML VIAL SQ ONE ×2 (13:32)
[2023-04-18] MEDS ORDERED: BUPIVACAINE (PF) 0.25% 30 ML VIAL SQ ONE ×2 (13:32)
[2023-04-18] MEDS ORDERED: LACTATED RINGERS 1,000 ML IV ONE (15:16)
--- NOTE | 2023-04-18 15:18 | FL ---
Fluoroscopy INDICATION: Pain FINDINGS: Fluoroscopy time: 12 minutes 16 seconds. Total dose area product (DAP) in uGy*m?, mGy*cm? (or similar): 115.20 Images obtained: 3. IMPRESSIONS: 1. Documentation of fluoroscopy.
--- NOTE | 2023-04-18 15:26 | P.PCN ---
Date of Procedure: 04/18/23 Procedure(s) Performed: PROCEDURES: 1- spinal cord stimulator permanent leads implant under fluoroscopic guidance X2 lead (Fluoroscopy images stored on file in radiology department ) (CPT code= 00731 ) X2 2-spinal cord stimulator generator implant CPT code 36449 3- complex programing of the spinal cord stimulator. PREOPERATIVE DIAGNOSIS: 1-lumbar spondylosis with lumbar facet arthropathy without myelopathy. 2-lumbar degenerative disc disease. 3-morbid obesity POSTOPERATIVE DIAGNOSIS: 1-same as preoperative diagnoses ANESTHESIA: Monitored anesthesia care as per anesthesia department BLOOD LOSS: Minimal. COMPLICATIONS: None. PROCEDURE INDICATIONS: The patient with a history of severe intractable low back pain who failed more conservative treatment measures. Patient had multiple pain interventions procedure and she got short-term benefit from it, patient was a candidate for spinal cord stimulator and she had the psychological testing done and showed that there is no contraindication for the spinal cord stimulator, patient is not interested in having any lumbar surgery PROCEDURE DESCRIPTION: The patient was seen and identified in the preoperative area. Risks, benefits, complications, and alternatives were discussed with the patient. The patient agreed to proceed with the procedure and signed the consent. IV was started.Patient was taken to the operating room and time out was performed.. The Thoracic and lumbar areas were prepped with Druaprep x2 and draped in the usual sterile fashion. Using sterile gowns and gloves, and after covering the fluoroscopic camera with a sterile drape, the procedure was proceeded on with. The fluoroscopic camera was placed in the AP position, and the T12-L1 interlaminar space was identified and localized in the left paramedian trajectory with 0.5% ropivacaine. Under fluoroscopic guidance, a 14 gauge Tuohy epidural needle from the [employer] spinal cord stimulator kit was guided into the interlaminar space. Then using the right oblique fluoroscopy, anterior-posterior fluoroscopy, and [id number] technique, the epidural space was accessed. The first lead (8 contacts leads from [employer] ) was passed and noted to be in the dorsal portion of the epidural space in the lateral view. Then using anterior-posterior view, the first lead was passed up to the top of T8 vertebra. Subsequently, a second 14 gauge Tuohy epidural needle was inserted just posterior to the first needle and was advanced toward the epidural space in a parallel direction to the first needle. Then using lateral fluoroscopy, anterior-posterior fluoroscopy, and [id number] technique, the epidural space was accessed by the second needle into the same interlaminar space as the first needle. Then a second similar lead was passed and noted to be in the dorsal portion of the epidural space in the lateral view. Then using anterior-posterior view, the second lead was passed up to the top of T 9 vertebra, and was left in a parallel position to the first lead. Subsequently, the leads were tested and they gave good stimulation on the low back area and the lower extremity , then after that the needle was removed and both legs secured using 2-0 silk, and then the dressing applied durind the procedure ,we performed complex programing of the spinal cord stimulator ,we changed pulse width ,amplitude and the frequencey of the stimulation and we got good coverage for the painful area ,the parasthesia overlaped the painfull area ,patients was satesfied withe the stimulation ,we got more than 80 % decrease in the pain level Then after that both leads secured with anchor to the supraspinous ligament, and then a decision made to create a pocket for the spinal cord stimulator generator [place], then after that both leads connected to the pulse generator, and then adequete hemostasis obtained, then after that the incisions closed using 2-0 Vicryl and 3-0 Vicryl, and then the dressing applied She will be taking antibiotic Levaquin 750 mg daily for 7 days and didn't will be seen in the pain clinic in one week COMPLICATIONS: No acute complications. COMMENTS: Each lead used had 8 contacts with a total of 16 contacts used. DISPOSITION / PLANS: The patient was placed in a supine position and transferred to the recovery area in a stable condition for observation. There was no evidence of lower extremity motor or sensory deficit after the procedure. Patient was discharged from the recovery room after meeting discharge criteria. Home discharge instructions were given to the patient by the staff. The patient was reexamined prior to discharge. Patient will follow up in the pain clinic next week for reevaluation and discussion about the results and possibility of moving forward with a permanent implant
[2023-04-18] MEDS ORDERED: ONDANSETRON 4 MG/2 ML VIAL ONE (15:40)
[2023-04-18] MEDS ORDERED: ACETAMINOPHEN TAB 500 MG TAB PO ONE ×2 (15:43)
[2023-04-18] MEDS ORDERED: ONDANSETRON 4 MG/2 ML VIAL IVP ONE (15:43)
[2023-04-18] MEDS ORDERED: ACETAMINOPHEN TAB 500 MG TAB ONE (15:45)
[2023-04-18 16:18] VITALS: BP 105/73; PULSE 70
== END 2023-04-18 16:56 | disposition home or self-care (01) ==
LOC: OR 11:17
PROVIDERS: ATTEND Specialist
DX: M47.816 Spondylosis without myelopathy or radiculopathy, lumbar region (principal); M51.36 Other intervertebral disc degeneration, lumbar region; E66.01 Morbid (severe) obesity due to excess calories; Z68.41 Body mass index [BMI] 40.0-44.9, adult
CPT/HCPCS: 93005; 84132; 85025; 63650; 64555; C1778; C1767; J2250; J2405; J0690; J3010; J2704

== ENCOUNTER → 2023-04-25 | Outpatient (CLI) | payer MEDICARE ==
--- NOTE | 2023-04-25 10:50 | P.PN ---
Progress Note - Text Progress Note Date: 04/25/23 At this is a follow-up visit for this 67 years old male, with a history of severe and chronic low back pain, patient diagnosed with severe lumbar degenerative disc disease, and lumbar spondylosis with lumbar facet arthropathy, and morbid obesity, last week we have done, permanent implant of spinal cord stimulator leads x2 ,and generator implant ( IPG ), patient here today to check on the incision, and to do complex programming of the spinal cord stimulator, today, I checked the spinal incision the incision looked good, no sign of infection, no erythema, and no discharge, no swelling, patient denies any focal neurological deficit, he denies any fever , he denies any headache, and then we did complex programming of the spinal cord stimulator generator, we changed pulse widths, amplitude and the frequency of the stimulation, and we were able to cover most of the painful area in the back and lower extremity, the paresthesia overlaped the painful area , he was very satisfied with the result of the stimulation, and he will follow up in the pain clinic when necessary
[2023-04-25 11:13] VITALS: BP 127/81; PULSE 77; RESP 18; TEMP 98.1
== END ==
LOC: PNWHC3 09:41
PROVIDERS: ATTEND Anesthesiology
DX: M51.36 Other intervertebral disc degeneration, lumbar region (principal); M47.816 Spondylosis without myelopathy or radiculopathy, lumbar region; G89.29 Other chronic pain; F17.200 Nicotine dependence, unspecified, uncomplicated; E66.01 Morbid (severe) obesity due to excess calories; Z91.048 Other nonmedicinal substance allergy status; Z79.82 Long term (current) use of aspirin
CPT/HCPCS: 99211

== ENCOUNTER → 2023-05-28 | Outpatient (CLI) | payer MEDICARE ==
[2023-05-28 11:24] VITALS: BP 126/74; PULSE 74; RESP 18; TEMP 97.8
--- NOTE | 2023-05-28 13:12 | P.PAINPG ---
PQRS Measure Charge Sheet Comment: A 67 yr old male w at side with a history of severe and chronic LBP secondary to lumbar DDD and spondylosis with facet arthropathy without myelopathy presents today for medication refills. Pain level is provoked at 4 /10 in intensity, constant, localized in the lumbar spine, dull/ achy in character w shooting towards the LLE. Pain is provoked by standing, walking, bending and lifting. Pain is alleviated with PT in 2020, chiropractic treatments twice a week x 1 yr in 2020, medications, heat, reclining, repositioning and rest. Interventional pain procedures completed include Thoracolumbar SCS Implant Patient is currently on [place], Tylenol OTC, Neurontin, Celebrex Patient denies any side effects of the medication(s), denies excessive drowsiness or sleepiness, denies suicidal ideation and reports that the current pain medication is helping to control the pain and improve activities of daily living. Patient denies any motor or sensory deficits. Patient denies any fever or night sweats, denies any change in the bowel movements or urination. Physical Examination: -Constitutional: Cooperative. Not in acute distress . - Neurologic: Cranial nerve II to XII intact. No focal neurological deficits. - Psychatric: Alert & oriented x 3. Matching mood & appropriate affect. Judgment and insight intact. - Musculoskeletal: Cervical spine: Muscle bulk/ tone/ strength in the bilateral upper extremities normal Vertebral body tenderness to palpation over [place] test positive Distraction test positive Facet loading test positive TTP Thoracic spine Muscle bulk / tone/ strength in the bilateral paraspinal muscles normal Vertebral body tender to palpation over Facet loading test positive TTP Lumbar spine: Motor bulk/ tone/ strength lower extremities , thigh and legs : 5/5 Deep tendon reflexes : Normal Knee Jerk. Normal Ankle Jerk . Vertebral body tenderness to palpation over [place] Test positive Lumbar Facet Loading Test positive Straight Leg Raise: positive at 30 degrees right side/ left side Gaenslen's Test positive Sacral spine : Severe tenderness over the Sacroiliac joint: right side / left side Range of motion: Flexion of the lumbar spine <60 degrees Range of motion: Extension of the lumbar spine <20 degrees Gaenslen's Test positive right side / left side Galile[place] test: positive right side / left side Thigh Thrust Test positive right side / left side Sacral Thrust Test positive right side / left side Assessment and plan: Chronic LBP secondary to lumbar DDD, spondylosis with facet arthropathy without myelopathy Recommendation of medication management. [place] 7.5/325mg #60 w 1 RF. UDS from 04/02/23 reviewed and consistent. All questions answered. I have spent less than 30 minutes on patient care today. Dr Dobson was available by phone for the evaluation of this patient. The time was used to review the medical records including relevant urine studies and Prescription history (MAPs), review of the available imaging, evaluation and examination of the patient, coordination of care with the medical staff and if applicable referring physicians, as well as creation of the medical record PQRS Narrative: Smoking Status Current every day smoker Hx Alcohol Use (MH) Yes: Rare Home Medications: Ambulatory Orders Simvastatin 20 mg PO HS 09/05/14 Aspirin EC [Ecotrin] 81 mg PO HS 12/15/14 Celecoxib [CeleBREX] 200 mg PO DAILY 04/03/15 Cholecalciferol (Vitamin D3) [Vitamin D3 (3000 Iu)] 50 mcg PO DAILY 05/30/21 Escitalopram [Lexapro] 10 mg PO DAILY 05/30/21 Omeprazole [PriLOSEC] 40 mg PO DAILY 10/10/21 Fluticasone/Umeclidin/Vilanter [Trelegy Ellipta 100-62.5-25] 1 inhalation INHALATION DAILY PRN 12/12/21 Albuterol Nebulized [Ventolin Nebulized] 2.5 mg IN TID 09/27/22 Multivitamins, Thera [Multivitamin (formulary)] 1 tab PO DAILY 11/19/22 Losartan/Hydrochlorothiazide [Losartan-Hctz 100-12.5 mg Tab] 1 tab PO DAILY 03/04/23 Acetaminophen [Tylenol Arthritis] 650 mg PO DAILY PRN 05/28/23 Gabapentin [Neurontin] 300 mg PO BID 05/28/23 HYDROcodone/APAP 7.5-325MG [[place] 7.5-325] 1 tab PO BID PRN 30 Days #60 tab 05/28/23 HYDROcodone/APAP 7.5-325MG [[place] 7.5-325] 1 tab PO BID PRN 30 Days #60 tab 05/28/23 Controlled Substance Measures - Controlled Substance Measures Is patient prescribed a controlled substance at discharge?: Yes
== END ==
LOC: PNWHC3 10:44
PROVIDERS: ATTEND Specialist
DX: M51.36 Other intervertebral disc degeneration, lumbar region (principal); M47.816 Spondylosis without myelopathy or radiculopathy, lumbar region; F17.200 Nicotine dependence, unspecified, uncomplicated; G89.29 Other chronic pain; Z79.82 Long term (current) use of aspirin; Z91.048 Other nonmedicinal substance allergy status
CPT/HCPCS: 99211

== ENCOUNTER → 2023-06-20 | Outpatient (CLI) | payer MEDICARE ==
--- NOTE | 2023-06-20 14:50 | CTL ---
EXAMINATION TYPE: CT Low Dose Lung DATE OF EXAM ORDERED: 06/20/2023 HISTORY:. Lung cancer screening CT DLP: 172.[address] CTDI: 4.3 mGy Automated exposure control for dose reduction was used COMPARISON: None. First screening visit TECHNIQUE: Low dose computed tomography scan was performed through the chest at 1 mm thick sections a nd reconstructed images in multiple planes at 1 mm and [address] DIAGNOSTIC QUALITY: Satisfactory FINDINGS: There is a 7.5 mm nodule in the right upper lobe. There is an 8 mm groundglass nodule in the left low er lobe. There is no abnormal airspace/consolidative density or interstitial density. There is no mediastinal, hilar or axillary adenopathy. There is no pleural effusion, pleural thickening or pneumothorax. Limited scanning through the upper abdomen reveals no gross abnormality. No focal osseous lesions are seen. IMPRESSION: 1. Lung RADS category 3 4 bilateral pulmonary nodules. Probably benign. Six-month follow-up CT chest is recommended for further evaluation and to assess stability. 2. No acute cardiopulmonary disease.
== END | disposition home or self-care (01) ==
LOC: RADCTMAIN 11:55
PROVIDERS: ATTEND Family Medicine
DX: Z12.2 Encounter for screening for malignant neoplasm of respiratory organs (principal); R91.8 Other nonspecific abnormal finding of lung field; Z87.891 Personal history of nicotine dependence
CPT/HCPCS: 71271

== ENCOUNTER → 2023-07-23 | Outpatient (CLI) | payer MEDICARE ==
[2023-07-23 12:32] VITALS: BP 134/78; PULSE 70; RESP 16; TEMP 98.1
--- NOTE | 2023-07-23 14:43 | P.PAINPG ---
PQRS Measure Charge Sheet Comment: A 67 yr old male w at side with a history of severe and chronic LBP secondary to lumbar DDD and spondylosis with facet arthropathy without myelopathy presents today for medication refills. Pain level is provoked at 4 /10 in intensity, constant, localized in the lumbar spine, dull/ achy in character w shooting towards the LLE. Pain is provoked by standing, walking, bending and lifting. Pain is alleviated with PT in 2020, chiropractic treatments twice a week x 1 yr in 2020, medications, use of a cane for ambulatory assistance, heat, reclining, repositioning and rest. Interventional pain procedures completed include Thoracolumbar SCS Implant Patient is currently on [place] 7.5/325mg #60, Tylenol OTC, Neurontin, Celebrex Patient denies any side effects of the medication(s), denies excessive drowsiness or sleepiness, denies suicidal ideation and reports that the current pain medication is helping to control the pain and improve activities of daily living. Patient denies any motor or sensory deficits. Patient denies any fever or night sweats, denies any change in the bowel movements or urination. Physical Examination: -Constitutional: Cooperative. Not in acute distress . - Neurologic: Cranial nerve II to XII intact. No focal neurological deficits. - Psychatric: Alert & oriented x 3. Matching mood & appropriate affect. Judgment and insight intact. - Musculoskeletal: Cervical spine: Muscle bulk/ tone/ strength in the bilateral upper extremities normal Vertebral body tenderness to palpation over Sp[place]ling test positive Distraction test positive Facet loading test positive TTP Thoracic spine Muscle bulk / tone/ strength in the bilateral paraspinal muscles normal Vertebral body tender to palpation over Facet loading test positive TTP Lumbar spine: Motor bulk/ tone/ strength lower extremities , thigh and legs : 5/5 Deep tendon reflexes : Normal Knee Jerk. Normal Ankle Jerk . Vertebral body tenderness to palpation over [place] Test positive Lumbar Facet Loading Test positive Straight Leg Raise: positive at 30 degrees right side/ left side Gaenslen's Test positive Sacral spine : Severe tenderness over the Sacroiliac joint: right side / left side Range of motion: Flexion of the lumbar spine <60 degrees Range of motion: Extension of the lumbar spine <20 degrees Gaenslen's Test positive right side / left side Galilea test: positive right side / left side Thigh Thrust Test positive right side / left side Sacral Thrust Test positive right side / left side Assessment and plan: Chronic LBP secondary to lumbar DDD, spondylosis with facet arthropathy without myelopathy Recommendation of medication management. [place] 7.5/325mg #60 w 1 RF. UDS from 04/02/23 reviewed and consistent. All questions answered. I have spent less than 30 minutes on patient care today. Dr Dobson was available by phone for the evaluation of this patient. The time was used to review the medical records including relevant urine studies and Prescription history (MAPs), review of the available imaging, evaluation and examination of the patient, coordination of care with the medical staff and if applicable referring physicians, as well as creation of the medical record PQRS Narrative: Smoking Status Current every day smoker Narcotic Agreement Date Signed 12/11/22 Hx Alcohol Use (MH) Yes: Rare Home Medications: Ambulatory Orders Simvastatin 20 mg PO HS 09/05/14 Aspirin EC [Ecotrin] 81 mg PO HS 12/15/14 Celecoxib [CeleBREX] 200 mg PO DAILY 04/03/15 Cholecalciferol (Vitamin D3) [Vitamin D3 (3000 Iu)] 50 mcg PO DAILY 05/30/21 Escitalopram [Lexapro] 10 mg PO DAILY 05/30/21 Omeprazole [PriLOSEC] 40 mg PO DAILY 10/10/21 Fluticasone/Umeclidin/Vilanter [Trelegy Ellipta 100-62.5-25] 1 inhalation INHALATION DAILY PRN 12/12/21 Albuterol Nebulized [Ventolin Nebulized] 2.5 mg IN TID 09/27/22 Multivitamins, Thera [Multivitamin (formulary)] 1 tab PO DAILY 11/19/22 Losartan/Hydrochlorothiazide [Losartan-Hctz 100-12.5 mg Tab] 1 tab PO DAILY 03/04/23 Acetaminophen [Tylenol Arthritis] 650 mg PO DAILY PRN 05/28/23 Gabapentin [Neurontin] 300 mg PO BID 05/28/23 HYDROcodone/APAP 7.5-325MG [[place] 7.5-325] 1 tab PO BID PRN 30 Days #60 tab 05/28/23 HYDROcodone/APAP 7.5-325MG [[place] 7.5-325] 1 tab PO BID PRN 30 Days #60 tab 05/28/23 Controlled Substance Measures - Controlled Substance Measures Is patient prescribed a controlled substance at discharge?: Yes When asked, does pt state using other controlled substances?: No If prescribed controlled substance>3 days was MAPS reviewed?: Yes
== END ==
LOC: PNWHC3 10:39
PROVIDERS: ATTEND Specialist
DX: M51.36 Other intervertebral disc degeneration, lumbar region (principal); M47.816 Spondylosis without myelopathy or radiculopathy, lumbar region; G89.29 Other chronic pain; F17.200 Nicotine dependence, unspecified, uncomplicated; Z79.82 Long term (current) use of aspirin; Z91.048 Other nonmedicinal substance allergy status
CPT/HCPCS: 99211

== ENCOUNTER → 2023-09-22 | Outpatient (CLI) | payer MEDICARE ==
[2023-09-22 11:37] VITALS: BP 136/86; PULSE 78; RESP 14; TEMP 97.8
--- NOTE | 2023-09-22 12:51 | P.PAINPG ---
Objective - Vital Signs Vital signs: Intake & Output 09/21/23 09/22/23 09/22/23 18:59 06:59 18:59 Weight 163.293 kg PQRS Measure Charge Sheet Comment: A 67 yr old male w at side with a history of severe and chronic LBP secondary to lumbar DDD and spondylosis with facet arthropathy without myelopathy presents today for medication refills. Pain level is provoked at 7 /10 in intensity, constant, localized in the lumbar spine, predominantly axial, dull/ achy in character w occasional shooting towards the LLE. Pain is provoked by standing, walking, bending and lifting. Pain is alleviated with PT in 2020, chiropractic treatments twice a week x 1 yr in 2020, medications, use of a cane for ambulatory assistance, heat, reclining, repositioning and rest. Interventional pain procedures completed include Thoracolumbar SCS Implant Patient is currently on [place] 7.5/325mg #60, Tylenol OTC, Neurontin, Celebrex Patient denies any side effects of the medication(s), denies excessive drowsiness or sleepiness, denies suicidal ideation and reports that the current pain medication is helping to control the pain and improve activities of daily living. Patient denies any motor or sensory deficits. Patient denies any fever or night sweats, denies any change in the bowel movements or urination. Physical Examination: -Constitutional: Cooperative. Not in acute distress . - Neurologic: Cranial nerve II to XII intact. No focal neurological deficits. - Psychatric: Alert & oriented x 3. Matching mood & appropriate affect. Judgment and insight intact. - Musculoskeletal: Cervical spine: Muscle bulk/ tone/ strength in the bilateral upper extremities normal Vertebral body tenderness to palpation over [place] test positive Distraction test positive Facet loading test positive TTP Thoracic spine Muscle bulk / tone/ strength in the bilateral paraspinal muscles normal Vertebral body tender to palpation over Facet loading test positive TTP Lumbar spine: Motor bulk/ tone/ strength lower extremities , thigh and legs : 5/5 Deep tendon reflexes : Normal Knee Jerk. Normal Ankle Jerk . Vertebral body tenderness to palpation over [place] Test positive Lumbar Facet Loading Test positive Straight Leg Raise: positive at 30 degrees right side/ left side Gaenslen's Test positive Sacral spine : Severe tenderness over the Sacroiliac joint: right side / left side Range of motion: Flexion of the lumbar spine <60 degrees Range of motion: Extension of the lumbar spine <20 degrees Gaenslen's Test positive right side / left side Galilea test: positive right side / left side Thigh Thrust Test positive right side / left side Sacral Thrust Test positive right side / left side Assessment and plan: Chronic LBP secondary to lumbar DDD, spondylosis with facet arthropathy without myelopathy Recommendation of medication management. [place] 7.5/325mg #60 w 1 RF. UDS from 04/02/23 reviewed and consistent. All questions answered. I have spent less than 30 minutes on patient care today. Dr Dobson was available by phone for the evaluation of this patient. The time was used to review the medical records including relevant urine studies and Prescription history (MAPs), review of the available imaging, evaluation and examination of the patient, coordination of care with the medical staff and if applicable referring physicians, as well as creation of the medical record - Pain Location Bilateral Lower Back Non-Pharmacological Interventions: Chiropractic Treatment, Inactivity, Physical Therapy, Position/Reposition, Sitting Pharmacological Interventions: Block, Epidural, PRN Medication, Scheduled Medication PQRS Narrative: Smoking Status Current every day smoker Narcotic Agreement Date Signed 12/11/22 Hx Alcohol Use (MH) Yes: Rare Home Medications: Ambulatory Orders Simvastatin 20 mg PO HS 09/05/14 Aspirin EC [Ecotrin] 81 mg PO HS 12/15/14 Celecoxib [CeleBREX] 200 mg PO DAILY 04/03/15 Cholecalciferol (Vitamin D3) [Vitamin D3 (3000 Iu)] 50 mcg PO DAILY 05/30/21 Escitalopram [Lexapro] 10 mg PO DAILY 05/30/21 Omeprazole [PriLOSEC] 40 mg PO DAILY 10/10/21 Fluticasone/Umeclidin/Vilanter [Trelegy Ellipta 100-62.5-25] 1 inhalation INHALATION DAILY PRN 12/12/21 Albuterol Nebulized [Ventolin Nebulized] 2.5 mg IN TID 09/27/22 Multivitamins, Thera [Multivitamin (formulary)] 1 tab PO DAILY 11/19/22 Losartan/Hydrochlorothiazide [Losartan-Hctz 100-12.5 mg Tab] 1 tab PO DAILY 03/04/23 Acetaminophen [Tylenol Arthritis] 650 mg PO DAILY PRN 05/28/23 Gabapentin [Neurontin] 300 mg PO BID 05/28/23 HYDROcodone/APAP 7.5-325MG [[place] 7.5-325] 1 tab PO BID PRN 30 Days #60 tab 09/22/23 HYDROcodone/APAP 7.5-325MG [[place] 7.5-325] 1 tab PO BID PRN 30 Days #60 tab 09/22/23 Controlled Substance Measures - Controlled Substance Measures Is patient prescribed a controlled substance at discharge?: No
== END ==
LOC: PNWHC3 10:48
PROVIDERS: ATTEND Specialist
DX: M51.36 Other intervertebral disc degeneration, lumbar region (principal); M47.816 Spondylosis without myelopathy or radiculopathy, lumbar region; G89.29 Other chronic pain; F17.200 Nicotine dependence, unspecified, uncomplicated; Z79.82 Long term (current) use of aspirin; Z91.048 Other nonmedicinal substance allergy status
CPT/HCPCS: 99211

== ENCOUNTER → 2023-11-17 | Outpatient (CLI) | payer MEDICARE ==
[2023-11-17 12:00] VITALS: BP 123/74; PULSE 82; RESP 16
--- NOTE | 2023-11-17 15:06 | P.PAINPG ---
PQRS Measure Charge Sheet Comment: A 67 yr old male w at side with a history of severe and chronic LBP secondary to lumbar DDD and spondylosis with facet arthropathy without myelopathy presents today for medication refills. Pain level is provoked at 5 /10 in intensity, constant, localized in the lumbar spine, predominantly axial, dull in character w occasional shooting towards the LLE. Pain is provoked by standing, walking, bending and lifting. Pain is alleviated with PT in 2020, chiropractic treatments twice a week x 1 yr in 2020, physician guided home stretches on R side since 2020, medications, use of a cane for ambulatory assistance, heat, reclining, repositioning and rest. Interventional pain procedures completed include Thoracolumbar SCS Implant Patient is currently on [place] 7.5/325mg #60, Tylenol OTC, Neurontin, Celebrex Patient denies any side effects of the medication(s), denies excessive drowsiness or sleepiness, denies suicidal ideation and reports that the current pain medication is helping to control the pain and improve activities of daily living. Patient denies any motor or sensory deficits. Patient denies any fever or night sweats, denies any change in the bowel movements or urination. Physical Examination: -Constitutional: Cooperative. Not in acute distress . - Neurologic: Cranial nerve II to XII intact. No focal neurological deficits. - Psychatric: Alert & oriented x 3. Matching mood & appropriate affect. Judgment and insight intact. - Musculoskeletal: Cervical spine: Muscle bulk/ tone/ strength in the bilateral upper extremities normal Vertebral body tenderness to palpation over [place] test positive Distraction test positive Facet loading test positive TTP Thoracic spine Muscle bulk / tone/ strength in the bilateral paraspinal muscles normal Vertebral body tender to palpation over Facet loading test positive TTP Lumbar spine: Motor bulk/ tone/ strength lower extremities , thigh and legs : 5/5 Deep tendon reflexes : Normal Knee Jerk. Normal Ankle Jerk . Vertebral body tenderness to palpation over [place] Test positive Lumbar Facet Loading Test positive Straight Leg Raise: positive at 30 degrees right side/ left side Gaenslen's Test positive Sacral spine : Severe tenderness over the Sacroiliac joint: right side / left side Range of motion: Flexion of the lumbar spine <60 degrees Range of motion: Extension of the lumbar spine <20 degrees Gaenslen's Test positive right side / left side [place] test: positive right side / left side Thigh Thrust Test positive right side / left side Sacral Thrust Test positive right side / left side Assessment and plan: Chronic LBP secondary to lumbar DDD, spondylosis with facet arthropathy without myelopathy Recommendation of medication management. [place] 7.5/325mg #60 w 1 RF. UDS collected 11/17/23. All questions answered. I have spent less than 30 minutes on patient care today. Dr Dobson was available by phone for the evaluation of this patient. The time was used to review the medical records including relevant urine studies and Prescription history (MAPs), review of the available imaging, evaluation and examination of the patient, coordination of care with the medical staff and if applicable referring physicians, as well as creation of the medical record PQRS Narrative: Smoking Status Current every day smoker Narcotic Agreement Date Signed 12/11/22 Hx Alcohol Use (MH) Yes: Rare Home Medications: Ambulatory Orders Simvastatin 20 mg PO HS 09/05/14 Aspirin EC [Ecotrin] 81 mg PO HS 12/15/14 Celecoxib [CeleBREX] 200 mg PO DAILY 04/03/15 Cholecalciferol (Vitamin D3) [Vitamin D3 (3000 Iu)] 50 mcg PO DAILY 05/30/21 Escitalopram [Lexapro] 10 mg PO DAILY 05/30/21 Omeprazole [PriLOSEC] 40 mg PO DAILY 10/10/21 Fluticasone/Umeclidin/Vilanter [Trelegy Ellipta 100-62.5-25] 1 inhalation INHALATION DAILY PRN 12/12/21 Albuterol Nebulized [Ventolin Nebulized] 2.5 mg IN TID 09/27/22 Multivitamins, Thera [Multivitamin (formulary)] 1 tab PO DAILY 11/19/22 Losartan/Hydrochlorothiazide [Losartan-Hctz 100-12.5 mg Tab] 1 tab PO DAILY 03/04/23 Acetaminophen [Tylenol Arthritis] 650 mg PO DAILY PRN 05/28/23 Gabapentin [Neurontin] 300 mg PO BID 05/28/23 Apixaban [Eliquis] 5 mg PO BID 11/17/23 HYDROcodone/APAP 7.5-325MG [[place] 7.5-325] 1 tab PO BID PRN 30 Days #60 tab 11/17/23 HYDROcodone/APAP 7.5-325MG [[place] 7.5-325] 1 tab PO BID PRN 30 Days #60 tab 11/17/23 Controlled Substance Measures - Controlled Substance Measures Is patient prescribed a controlled substance at discharge?: Yes When asked, does pt state using other controlled substances?: No If prescribed controlled substance>3 days was MAPS reviewed?: Yes
== END ==
LOC: PNWHC3 10:48
PROVIDERS: ATTEND Specialist
DX: M51.36 Other intervertebral disc degeneration, lumbar region (principal); M47.817 Spondylosis without myelopathy or radiculopathy, lumbosacral region; G89.29 Other chronic pain; F17.200 Nicotine dependence, unspecified, uncomplicated; Z79.82 Long term (current) use of aspirin; Z91.048 Other nonmedicinal substance allergy status
CPT/HCPCS: 80307; G0463; 99212

== ENCOUNTER → 2024-01-12 | Outpatient (CLI) | payer MEDICARE ==
[2024-01-12 13:57] VITALS: BP 125/87; PULSE 80; RESP 16; TEMP 98.3
--- NOTE | 2024-01-12 14:35 | P.PAINPG ---
PQRS Measure Charge Sheet Comment: A 68 yr old male w at side with a history of severe and chronic LBP secondary to lumbar DDD and spondylosis with facet arthropathy without myelopathy presents today for medication refills. Pain level is provoked at 4 /10 in intensity, constant, localized in the lumbar spine, predominantly axial, dull in character w occasional shooting towards the LLE. Pain is provoked by standing, walking, bending and lifting. Pain is alleviated with PT in 2020, chiropractic treatments twice a week x 1 yr in 2020, physician guided home stretches on R side since 2020, medications, use of a cane for ambulatory assistance, heat, reclining, repositioning and rest. Interventional pain procedures completed include Thoracolumbar SCS Implant Patient is currently on [place] 7.5/325mg #60, Tylenol OTC, Neurontin, Celebrex Patient denies any side effects of the medication(s), denies excessive drowsiness or sleepiness, denies suicidal ideation and reports that the current pain medication is helping to control the pain and improve activities of daily living. Patient denies any motor or sensory deficits. Patient denies any fever or night sweats, denies any change in the bowel movements or urination. Physical Examination: -Constitutional: Cooperative. Not in acute distress . - Neurologic: Cranial nerve II to XII intact. No focal neurological deficits. - Psychatric: Alert & oriented x 3. Matching mood & appropriate affect. Judgment and insight intact. - Musculoskeletal: Cervical spine: Muscle bulk/ tone/ strength in the bilateral upper extremities normal Vertebral body tenderness to palpation over [place] test positive Distraction test positive Facet loading test positive TTP Thoracic spine Muscle bulk / tone/ strength in the bilateral paraspinal muscles normal Vertebral body tender to palpation over Facet loading test positive TTP Lumbar spine: Motor bulk/ tone/ strength lower extremities , thigh and legs : 5/5 Deep tendon reflexes : Normal Knee Jerk. Normal Ankle Jerk . Vertebral body tenderness to palpation over [place] Test positive Lumbar Facet Loading Test positive Straight Leg Raise: positive at 30 degrees right side/ left side Gaenslen's Test positive Sacral spine : Severe tenderness over the Sacroiliac joint: right side / left side Range of motion: Flexion of the lumbar spine <60 degrees Range of motion: Extension of the lumbar spine <20 degrees Gaenslen's Test positive right side / left side Galile[place] test: positive right side / left side Thigh Thrust Test positive right side / left side Sacral Thrust Test positive right side / left side Assessment and plan: Chronic LBP secondary to lumbar DDD, spondylosis with facet arthropathy without myelopathy Recommendation of medication management. [place] 7.5/325mg #60 w 1 RF. UDS fr 11/17/23 reviewed and consistent. All questions answered. I have spent less than 30 minutes on patient care today. Dr Dobson was available by phone for the evaluation of this patient. The time was used to review the medical records including relevant urine studies and Prescription history (MAPs), review of the available imaging, evaluation and examination of the patient, coordination of care with the medical staff and if applicable referring physicians, as well as creation of the medical record PQRS Narrative: Smoking Status Current every day smoker Narcotic Agreement Date Signed 12/11/22 Hx Alcohol Use (MH) Yes: Rare Home Medications: Ambulatory Orders Simvastatin 20 mg PO HS 09/05/14 Aspirin EC [Ecotrin] 81 mg PO HS 12/15/14 Celecoxib [CeleBREX] 200 mg PO DAILY 04/03/15 Cholecalciferol (Vitamin D3) [Vitamin D3 (3000 Iu)] 50 mcg PO DAILY 05/30/21 Escitalopram [Lexapro] 10 mg PO DAILY 05/30/21 Omeprazole [PriLOSEC] 40 mg PO DAILY 10/10/21 Fluticasone/Umeclidin/Vilanter [Trelegy Ellipta 100-62.5-25] 1 inhalation INHALATION DAILY PRN 12/12/21 Albuterol Nebulized [Ventolin Nebulized] 2.5 mg IN TID 09/27/22 Multivitamins, Thera [Multivitamin (formulary)] 1 tab PO DAILY 11/19/22 Losartan/Hydrochlorothiazide [Losartan-Hctz 100-12.5 mg Tab] 1 tab PO DAILY 03/04/23 Acetaminophen [Tylenol Arthritis] 650 mg PO DAILY PRN 05/28/23 Gabapentin [Neurontin] 300 mg PO BID 05/28/23 Apixaban [Eliquis] 5 mg PO BID 11/17/23 HYDROcodone/APAP 7.5-325MG [[place] 7.5-325] 1 tab PO BID PRN 30 Days #60 tab 01/12/24 HYDROcodone/APAP 7.5-325MG [[place] 7.5-325] 1 tab PO BID PRN 30 Days #60 tab 01/12/24 Controlled Substance Measures - Controlled Substance Measures Is patient prescribed a controlled substance at discharge?: Yes When asked, does pt state using other controlled substances?: Yes If prescribed controlled substance>3 days was MAPS reviewed?: Yes
== END ==
LOC: PNWHC3 12:50
PROVIDERS: ATTEND Specialist
DX: M51.36 Other intervertebral disc degeneration, lumbar region (principal); M47.817 Spondylosis without myelopathy or radiculopathy, lumbosacral region; G89.29 Other chronic pain; F17.200 Nicotine dependence, unspecified, uncomplicated; Z91.048 Other nonmedicinal substance allergy status
CPT/HCPCS: 99211

== ENCOUNTER → 2024-03-22 | Outpatient (CLI) | payer MEDICARE ==
[2024-03-22 13:50] VITALS: BP 122/70; PULSE 68; RESP 16; TEMP 98
--- NOTE | 2024-03-22 14:45 | P.PAINPG ---
PQRS Measure Charge Sheet Comment: A 68 yr old male w at side with a history of severe and chronic LBP secondary to lumbar DDD and spondylosis with facet arthropathy without myelopathy presents today for medication refills. Pain level is provoked at 6 /10 in intensity, constant, localized in the lumbar spine, predominantly axial, dull in character w occasional shooting towards the LLE. Pain is provoked by standing, walking, bending and lifting. Pain is alleviated with PT in 2020, chiropractic treatments twice a week x 1 yr in 2020, physician guided home stretches on R side since 2020, medications, use of a cane for ambulatory assistance, heat, reclining, repositioning and rest. Pt uses a pneumatic ambulatory device to aid in ambulation. Interventional pain procedures completed include Thoracolumbar SCS Implant Patient is currently on [place] 7.5/325mg #60, Tylenol OTC, Neurontin, Celebrex Patient denies any side effects of the medication(s), denies excessive drowsiness or sleepiness, denies suicidal ideation and reports that the current pain medication is helping to control the pain and improve activities of daily living. Patient denies any motor or sensory deficits. Patient denies any fever or night sweats, denies any change in the bowel movements or urination. Physical Examination: -Constitutional: Cooperative. Not in acute distress . - Neurologic: Cranial nerve II to XII intact. No focal neurological deficits. - Psychatric: Alert & oriented x 3. Matching mood & appropriate affect. Judgment and insight intact. - Musculoskeletal: Cervical spine: Muscle bulk/ tone/ strength in the bilateral upper extremities normal Vertebral body tenderness to palpation over [place] test positive Distraction test positive Facet loading test positive TTP Thoracic spine Muscle bulk / tone/ strength in the bilateral paraspinal muscles normal Vertebral body tender to palpation over Facet loading test positive TTP Lumbar spine: Motor bulk/ tone/ strength lower extremities , thigh and legs : 5/5 Deep tendon reflexes : Normal Knee Jerk. Normal Ankle Jerk . Vertebral body tenderness to palpation over [place] Test positive Lumbar Facet Loading Test positive Straight Leg Raise: positive at 30 degrees right side/ left side Gaenslen's Test positive Sacral spine : Severe tenderness over the Sacroiliac joint: right side / left side Range of motion: Flexion of the lumbar spine <60 degrees Range of motion: Extension of the lumbar spine <20 degrees Gaenslen's Test positive right side / left side Galile[place] test: positive right side / left side Thigh Thrust Test positive right side / left side Sacral Thrust Test positive right side / left side Assessment and plan: Chronic LBP secondary to lumbar DDD, spondylosis with facet arthropathy without myelopathy Recommendation of medication management. [place] 7.5/325mg #90 w 2 RF. UDS fr 11/17/23 reviewed and consistent. All questions answered. I have spent less than 30 minutes on patient care today. Dr Dobson was available by phone for the evaluation of this patient. The time was used to review the medical records including relevant urine studies and Prescription history (MAPs), review of the available imaging, evaluation and examination of the patient, coordination of care with the medical staff and if applicable referring physicians, as well as creation of the medical record PQRS Narrative: Smoking Status Current every day smoker Narcotic Agreement Date Signed 12/11/22 Hx Alcohol Use (MH) Yes: Rare Home Medications: Ambulatory Orders Simvastatin 20 mg PO HS 09/05/14 Aspirin EC [Ecotrin] 81 mg PO HS 12/15/14 Celecoxib [CeleBREX] 200 mg PO DAILY 04/03/15 Cholecalciferol (Vitamin D3) [Vitamin D3 (3000 Iu)] 50 mcg PO DAILY 05/30/21 Escitalopram [Lexapro] 10 mg PO DAILY 05/30/21 Omeprazole [PriLOSEC] 40 mg PO DAILY 10/10/21 Fluticasone/Umeclidin/Vilanter [Trelegy Ellipta 100-62.5-25] 1 inhalation INHALATION DAILY PRN 12/12/21 Albuterol Nebulized [Ventolin Nebulized] 2.5 mg IN TID 09/27/22 Multivitamins, Thera [Multivitamin (formulary)] 1 tab PO DAILY 11/19/22 Losartan/Hydrochlorothiazide [Losartan-Hctz 100-12.5 mg Tab] 1 tab PO DAILY 03/04/23 Acetaminophen [Tylenol Arthritis] 650 mg PO DAILY PRN 05/28/23 Gabapentin [Neurontin] 300 mg PO BID 05/28/23 Apixaban [Eliquis] 5 mg PO BID 11/17/23 HYDROcodone/APAP 7.5-325MG [[place] 7.5-325] 1 tab PO TID PRN 30 Days #90 tab 03/22/24 HYDROcodone/APAP 7.5-325MG [[place] 7.5-325] 1 tab PO TID PRN 30 Days #90 tab 03/22/24 HYDROcodone/APAP 7.5-325MG [[place] 7.5-325] 1 tab PO TID PRN 30 Days #90 tab 03/22/24 Controlled Substance Measures - Controlled Substance Measures Is patient prescribed a controlled substance at discharge?: Yes When asked, does pt state using other controlled substances?: No If prescribed controlled substance>3 days was MAPS reviewed?: Yes If Rx opioid, was Start Talking consent form obtained?: Yes Was information provided regarding opioid addiction?: Yes
== END ==
LOC: PNWHC3 12:50
PROVIDERS: ATTEND Specialist
DX: M51.36 Other intervertebral disc degeneration, lumbar region (principal); M47.817 Spondylosis without myelopathy or radiculopathy, lumbosacral region; F17.200 Nicotine dependence, unspecified, uncomplicated; Z91.048 Other nonmedicinal substance allergy status
CPT/HCPCS: 99211

== ENCOUNTER → 2024-06-30 | Outpatient (CLI) | payer MEDICARE ==
[2024-06-30 13:34] VITALS: BP 181/92; PULSE 86; RESP 16; TEMP 97.5
--- NOTE | 2024-07-07 11:34 | P.PAINPG ---
Objective - Vital Signs Vital signs: Intake & Output 06/29/24 06/30/24 06/30/24 18:59 06:59 18:59 Weight 161.479 kg PQRS Measure Charge Sheet Comment: A 68 yr old male w at side with a history of severe and chronic LBP secondary to radiculopathy, spondylosis and facet arthropathy without myelopathy presents today for medication refills. Pain level is provoked at 6 /10 in intensity, constant, localized in the lumbar spine, predominantly axial, dull in character w occasional shooting towards the LLE. Pain is provoked by standing, walking, bending and lifting. Pain is alleviated with PT in 2020, chiropractic treatments twice a week x 1 yr in 2020, physician guided home stretches on R side since 2020, medications, use of a cane for ambulatory assistance, heat, reclining, repositioning and rest. Pt uses a pneumatic ambulatory device to aid in ambulation. Interventional pain procedures completed include Thoracolumbar SCS Implant Patient is currently on [place] 7.5/325mg #60, Tylenol OTC, Neurontin, Celebrex Patient denies any side effects of the medication(s), denies excessive drowsiness or sleepiness, denies suicidal ideation and reports that the current pain medication is helping to control the pain and improve activities of daily living. Patient denies any motor or sensory deficits. Patient denies any fever or night sweats, denies any change in the bowel movements or urination. Physical Examination: -Constitutional: Cooperative. Not in acute distress . - Neurologic: Cranial nerve II to XII intact. No focal neurological deficits. - Psychatric: Alert & oriented x 3. Matching mood & appropriate affect. Judgment and insight intact. - Musculoskeletal: Cervical spine: Muscle bulk/ tone/ strength in the bilateral upper extremities normal Vertebral body tenderness to palpation over [place] test positive Distraction test positive Facet loading test positive TTP Thoracic spine Muscle bulk / tone/ strength in the bilateral paraspinal muscles normal Vertebral body tender to palpation over Facet loading test positive TTP Lumbar spine: Motor bulk/ tone/ strength lower extremities , thigh and legs : 5/5 Deep tendon reflexes : Normal Knee Jerk. Normal Ankle Jerk . Vertebral body tenderness to palpation over [place] Test positive Lumbar Facet Loading Test positive Straight Leg Raise: positive at 30 degrees right side/ left side Gaenslen's Test positive Sacral spine : Severe tenderness over the Sacroiliac joint: right side / left side Range of motion: Flexion of the lumbar spine <60 degrees Range of motion: Extension of the lumbar spine <20 degrees Gaenslen's Test positive right side / left side Galilea test: positive right side / left side Thigh Thrust Test positive right side / left side Sacral Thrust Test positive right side / left side Assessment and plan: Chronic LBP secondary to lumbar DDD, spondylosis with facet arthropathy without myelopathy Recommendation of medication management. [place] 7.5/325mg #90 w 2 RF. Add Diclofenac gel BID w 2 RF. Use, side effects, adverse reactions, safe storage discussed. Narcotic agreement signed 06/30/24. Will collect UDS at next visit. All questions answered. I have spent less than 30 minutes on patient care today. Dr Dobson was available by phone for the evaluation of this patient. The time was used to review the medical records including relevant urine studies and Prescription history (MAPs), review of the available imaging, evaluation and examination of the patient, coordination of care with the medical staff and if applicable referring physicians, as well as creation of the medical record - Pain Location Bilateral Lower Back Non-Pharmacological Interventions: Inactivity, Position/Reposition, Sitting Pharmacological Interventions: PRN Medication, Scheduled Medication, Topical Med ication PQRS Narrative: Smoking Status Current every day smoker Narcotic Agreement Date Signed 12/11/22 Hx Alcohol Use (MH) Yes: Rare Home Medications: Ambulatory Orders Simvastatin 20 mg PO HS 09/05/14 Aspirin EC [Ecotrin] 81 mg PO HS 12/15/14 Celecoxib [CeleBREX] 200 mg PO DAILY 04/03/15 Cholecalciferol (Vitamin D3) [Vitamin D3 (3000 Iu)] 50 mcg PO DAILY 05/30/21 Escitalopram [Lexapro] 10 mg PO DAILY 05/30/21 Omeprazole [PriLOSEC] 40 mg PO DAILY 10/10/21 Fluticasone/Umeclidin/Vilanter [Trelegy Ellipta 100-62.5-25] 1 inhalation INHALATION DAILY PRN 12/12/21 Albuterol Nebulized [Ventolin Nebulized] 2.5 mg IN TID 09/27/22 Multivitamins, Thera [Multivitamin (formulary)] 1 tab PO DAILY 11/19/22 Losartan/Hydrochlorothiazide [Losartan-Hctz 100-12.5 mg Tab] 1 tab PO DAILY 03/04/23 Acetaminophen [Tylenol Arthritis] 650 mg PO DAILY PRN 05/28/23 Gabapentin [Neurontin] 300 mg PO BID 05/28/23 Apixaban [Eliquis] 5 mg PO BID 11/17/23 HYDROcodone/APAP 7.5-325MG [[place] 7.5-325] 1 tab PO TID PRN 30 Days #90 tab 05/10/24 Cyclobenzaprine [Flexeril] 10 mg PO HS 06/30/24 DULoxetine HCL [Cymbalta] 60 mg PO DAILY 06/30/24 Diclofenac Sodium Gel [Voltaren 1% Gel] 50 gm TOPICAL BID 30 Days #1 each 06/30/24 HYDROcodone/APAP 7.5-325MG [[place] 7.5-325] 1 tab PO TID PRN 30 Days #90 tab 06/30/24 HYDROcodone/APAP 7.5-325MG [[place] 7.5-325] 1 tab PO TID PRN 30 Days #90 tab 06/30/24 HYDROcodone/APAP 7.5-325MG [[place] 7.5-325] 1 tab PO TID PRN 30 Days #90 tab 06/30/24 Controlled Substance Measures - Controlled Substance Measures Is patient prescribed a controlled substance at discharge?: Yes When asked, does pt state using other controlled substances?: No If prescribed controlled substance>3 days was MAPS reviewed?: Yes
== END ==
LOC: PNWHC3 12:17
PROVIDERS: ATTEND Specialist
DX: M54.51 Vertebrogenic low back pain
CPT/HCPCS: 99211

== ENCOUNTER → 2024-09-22 | Outpatient (CLI) | payer MEDICARE ==
[2024-09-22 13:51] VITALS: BP 145/81; PULSE 83; RESP 16
--- NOTE | 2024-09-22 15:07 | P.PAINPG ---
Objective - Vital Signs Vital signs: Intake & Output 09/21/24 09/22/24 09/22/24 18:59 06:59 18:59 Weight 162.386 kg PQRS Measure Charge Sheet Comment: A 68 yr old male w at side with a history of severe and chronic LBP secondary to radiculopathy, spondylosis and facet arthropathy without myelopathy presents today for medication refills. Pain level is provoked at 6 /10 in intensity, constant, localized in the lumbar spine, predominantly axial, dull in character w occasional shooting towards the LLE. Pain is provoked by standing, walking, bending and lifting. Pain is alleviated with PT in 2020, chiropractic treatments twice a week x 1 yr in 2020, physician guided home stretches on R side since 2020, medications, use of a cane for ambulatory assistance, heat, reclining, repositioning and rest. Pt uses a pneumatic ambulatory device to aid in ambulation. Interventional pain procedures completed include Thoracolumbar SCS Implant Patient is currently on [place] 7.5/325mg #60, Tylenol OTC, Neurontin, Celebrex Patient denies any side effects of the medication(s), denies excessive drowsiness or sleepiness, denies suicidal ideation and reports that the current pain medication is helping to control the pain and improve activities of daily living. Patient denies any motor or sensory deficits. Patient denies any fever or night sweats, denies any change in the bowel movements or urination. Physical Examination: -Constitutional: Cooperative. Not in acute distress . - Neurologic: Cranial nerve II to XII intact. No focal neurological deficits. - Psychatric: Alert & oriented x 3. Matching mood & appropriate affect. Judgment and insight intact. - Musculoskeletal: Cervical spine: Muscle bulk/ tone/ strength in the bilateral upper extremities normal Vertebral body tenderness to palpation over Sp[place]ling test positive Distraction test positive Facet loading test positive TTP Thoracic spine Muscle bulk / tone/ strength in the bilateral paraspinal muscles normal Vertebral body tender to palpation over Facet loading test positive TTP Lumbar spine: Motor bulk/ tone/ strength lower extremities , thigh and legs : 5/5 Deep tendon reflexes : Normal Knee Jerk. Normal Ankle Jerk . Vertebral body tenderness to palpation over [place] Test positive Lumbar Facet Loading Test positive Straight Leg Raise: positive at 30 degrees right side/ left side Gaenslen's Test positive Sacral spine : Severe tenderness over the Sacroiliac joint: right side / left side Range of motion: Flexion of the lumbar spine <60 degrees Range of motion: Extension of the lumbar spine <20 degrees Gaenslen's Test positive right side / left side Galilea test: positive right side / left side Thigh Thrust Test positive right side / left side Sacral Thrust Test positive right side / left side Assessment and plan: Chronic LBP secondary to lumbar DDD, spondylosis with facet arthropathy without myelopathy Recommendation of medication management. [place] 7.5/325mg #90 ,Diclofenac gel BID w 2 RF. Use, side effects, adverse reactions, safe storage discussed. Narcotic agreement signed 06/30/24. UDS collectedd 09/22/24. All questions answered. I have spent less than 30 minutes on patient care today. Dr Dobson was available by phone for the evaluation of this patient. The time was used to review the medical records including relevant urine studies and Prescription history (MAPs), review of the available imaging, evaluation and examination of the patient, coordination of care with the medical staff and if applicable referring physicians, as well as creation of the medical record PQRS Narrative: Smoking Status Current every day smoker Narcotic Agreement Date Signed 06/30/24 Hx Alcohol Use (MH) Yes: Rare Home Medications: Ambulatory Orders Simvastatin 20 mg PO HS 09/05/14 Aspirin EC [Ecotrin] 81 mg PO HS 12/15/14 Celecoxib [CeleBREX] 200 mg PO DAILY 04/03/15 Cholecalciferol (Vitamin D3) [Vitamin D3 (3000 Iu)] 50 mcg PO DAILY 05/30/21 Escitalopram [Lexapro] 10 mg PO DAILY 05/30/21 Omeprazole [PriLOSEC] 40 mg PO DAILY 10/10/21 Fluticasone/Umeclidin/Vilanter [Trelegy Ellipta 100-62.5-25] 1 inhalation INHALATION DAILY PRN 12/12/21 Albuterol Nebulized [Ventolin Nebulized] 2.5 mg IN TID 09/27/22 Multivitamins, Thera [Multivitamin (formulary)] 1 tab PO DAILY 11/19/22 Losartan/Hydrochlorothiazide [Losartan-Hctz 100-12.5 mg Tab] 1 tab PO DAILY 03/04/23 Acetaminophen [Tylenol Arthritis] 650 mg PO DAILY PRN 05/28/23 Gabapentin [Neurontin] 300 mg PO BID 05/28/23 Apixaban [Eliquis] 5 mg PO BID 11/17/23 Cyclobenzaprine [Flexeril] 10 mg PO HS 06/30/24 DULoxetine HCL [Cymbalta] 60 mg PO DAILY 06/30/24 Diclofenac Sodium Gel [Voltaren 1% Gel] 50 gm TOPICAL BID 30 Days #1 each 06/30/24 HYDROcodone/APAP 7.5-325MG [[place] 7.5-325] 1 tab PO TID PRN 30 Days #90 tab 07/07/24 HYDROcodone/APAP 7.5-325MG [[place] 7.5-325] 1 tab PO TID PRN 30 Days #90 tab 07/07/24 HYDROcodone/APAP 7.5-325MG [[place] 7.5-325] 1 tab PO TID PRN 30 Days #90 tab 07/07/24 Controlled Substance Measures - Controlled Substance Measures Is patient prescribed a controlled substance at discharge?: Yes When asked, does pt state using other controlled substances?: No If prescribed controlled substance>3 days was MAPS reviewed?: Yes
== END ==
LOC: PNWHC3 13:08
PROVIDERS: ATTEND Specialist
DX: M47.816 Spondylosis without myelopathy or radiculopathy, lumbar region (principal); F17.200 Nicotine dependence, unspecified, uncomplicated; Z91.048 Other nonmedicinal substance allergy status
CPT/HCPCS: 80307; G0463; 99211

== ENCOUNTER → 2024-12-15 | Outpatient (CLI) | payer MEDICARE ==
[2024-12-15 13:35] VITALS: BP 154/102; PULSE 76; RESP 16
--- NOTE | 2024-12-15 14:37 | P.PAINPG ---
PQRS Measure Charge Sheet Comment: A 69 yr old male w at side with a history of severe and chronic LBP secondary to radiculopathy, spondylosis and facet arthropathy without myelopathy presents today for medication refills. Pain level is provoked at 4-6 /10 in intensity, intermittent, localized in the lumbar spine, predominantly axial, d ull in character w occasional shooting towards the LLE. Pain is provoked by standing, walking, bending and lifting. Pain is alleviated with PT in 2020, chiropractic treatments twice a week x 1 yr in 2020, physician guided home stretches on R side since 2020, medications, use of a cane for ambulatory assistance, heat, reclining, repositioning and rest. Pt uses a pneumatic ambulatory device to aid in ambulation. Interventional pain procedures completed include Thoracolumbar SCS Implant Patient is currently on [place] 7.5/325mg #60, Tylenol OTC, Neurontin, Celebrex Patient denies any side effects of the medication(s), denies excessive drowsiness or sleepiness, denies suicidal ideation and reports that the current pain medication is helping to control the pain and improve activities of daily living. Patient denies any motor or sensory deficits. Patient denies any fever or night sweats, denies any change in the bowel movements or urination. Physical Examination: -Constitutional: Cooperative. Not in acute distress . - Neurologic: Cranial nerve II to XII intact. No focal neurological deficits. - Psychatric: Alert & oriented x 3. Matching mood & appropriate affect. Judgment and insight intact. - Musculoskeletal: Cervical spine: Muscle bulk/ tone/ strength in the bilateral upper extremities normal Vertebral body tenderness to palpation over [place] test positive Distraction test positive Facet loading test positive TTP Thoracic spine Muscle bulk / tone/ strength in the bilateral paraspinal muscles normal Vertebral body tender to palpation over Facet loading test positive TTP Lumbar spine: Motor bulk/ tone/ strength lower extremities , thigh and legs : 5/5 Deep tendon reflexes : Normal Knee Jerk. Normal Ankle Jerk . Vertebral body tenderness to palpation over [place] Test positive Taut bands w twitch response over BL L1-S1 Lumbar Facet Loading Test positive Straight Leg Raise: positive at 30 degrees right side/ left side Gaenslen's Test positive Sacral spine : Severe tenderness over the Sacroiliac joint: right side / left side Range of motion: Flexion of the lumbar spine <60 degrees Range of motion: Extension of the lumbar spine <20 degrees Gaenslen's Test positive right side / left side Galilea test: positive right side / left side Thigh Thrust Test positive right side / left side Sacral Thrust Test positive right side / left side Assessment and plan: Chronic LBP secondary to radiculopathy, spondylosis with facet arthropathy without myelopathy Recommendation of medication management and BL TPIs L1-S1 #1. [place] 7.5/325mg #90 , Diclofenac gel BID w 2 RF. Use, side effects, adverse reactions, safe storage discussed. Narcotic agreement signed 06/30/24. UDS from 09/22/24 reviewed and consistent. All questions answered. I have spent less than 30 minutes on patient care today. Dr Dobson was available by phone for the evaluation of this patient. The time was used to review the medical records including relevant urine studies and Prescription history (MAPs), review of the available imaging, evaluation and examination of the patient, coordination of care with the medical staff and if applicable referring physicians, as well as creation of the medical record PQRS Narrative: Smoking Status Current every day smoker Narcotic Agreement Date Signed 06/30/24 Hx Alcohol Use (MH) Yes: Rare Home Medications: Ambulatory Orders Simvastatin 20 mg PO HS 09/05/14 Aspirin EC [Ecotrin] 81 mg PO HS 12/15/14 Celecoxib [CeleBREX] 200 mg PO DAILY 04/03/15 Cholecalciferol (Vitamin D3) [Vitamin D3 (3000 Iu)] 50 mcg PO DAILY 05/30/21 Escitalopram [Lexapro] 10 mg PO DAILY 05/30/21 Omeprazole [PriLOSEC] 40 mg PO DAILY 10/10/21 Fluticasone/Umeclidin/Vilanter [Trelegy Ellipta 100-62.5-25] 1 inhalation INHALATION DAILY PRN 12/12/21 Albuterol Nebulized [Ventolin Nebulized] 2.5 mg IN TID 09/27/22 Multivitamins, Thera [Multivitamin (formulary)] 1 tab PO DAILY 11/19/22 Losartan/Hydrochlorothiazide [Losartan-Hctz 100-12.5 mg Tab] 1 tab PO DAILY 02/17 04/11 Acetaminophen [Tylenol Arthritis] 650 mg PO DAILY PRN 05/28/23 Gabapentin [Neurontin] 300 mg PO BID 05/28/23 Apixaban [Eliquis] 5 mg PO BID 11/17/23 Cyclobenzaprine [Flexeril] 10 mg PO HS 06/30/24 DULoxetine HCL [Cymbalta] 60 mg PO DAILY 06/30/24 Diclofenac Sodium Gel [Voltaren 1% Gel] 50 gm TOPICAL BID 30 Days #1 each 12/15/24 HYDROcodone/APAP 7.5-325MG [[place] 7.5-325] 1 tab PO TID PRN 30 Days #90 tab 12/15/24 HYDROcodone/APAP 7.5-325MG [[place] 7.5-325] 1 tab PO TID PRN 30 Days #90 tab 12/15/24 HYDROcodone/APAP 7.5-325MG [[place] 7.5-325] 1 tab PO TID PRN 30 Days #90 tab 12/15/24 Controlled Substance Measures - Controlled Substance Measures Is patient prescribed a controlled substance at discharge?: Yes When asked, does pt state using other controlled substances?: No If prescribed controlled substance>3 days was MAPS reviewed?: Yes
== END ==
LOC: PNWHC3 12:50
PROVIDERS: ATTEND Specialist
DX: M47.26 Other spondylosis with radiculopathy, lumbar region (principal); G89.29 Other chronic pain; F17.210 Nicotine dependence, cigarettes, uncomplicated; Z79.899 Other long term (current) drug therapy; Z91.048 Other nonmedicinal substance allergy status
CPT/HCPCS: 99211

== ENCOUNTER 2024-12-31 08:07 | Day surgery (SDC) | payer MEDICARE ==
[~2024-12-31 08:07] MED LIST changes: -LIDOCAINE 1% (10MG/ML) FOR IV START INTRADERMA PRN
[2024-12-31 08:34] VITALS: RESP 16; TEMP 97.3
[2024-12-31] MEDS ORDERED: ROPIVACAINE 5MG/ML 20ML VIAL ONE (09:07)
[2024-12-31] MEDS ORDERED: methylPREDNISolone ACETATE 80 MG/ML 1 ML VIAL ONE (09:07)
--- NOTE | 2024-12-31 09:26 | P.PCN ---
Description of Procedure: Preprocedure diagnosis. Myofascial pain. Myofascial trigger point. Postprocedure diagnosis. As above. Procedure done. Myofascial trigger point injection with local anesthetics and steroid at 3 points. Anesthesia. Local anesthetic infiltration. In the OR continuous pulse ox, EKG, blood pressure, and verbal communication was maintained with the patient. Blood loss. None. Indication. Discussed with the patient procedure, alternatives and possible complications which may include infection, bleeding, nerve damage, aggravation of pain. Patient understands and all questions were answered. Procedure note. After getting consent patient in the procedure area. Most tender points were identified and marked. A 25-gauge needle attached to syringe was introduced at the trigger points and after negative aspiration 5 mL solution are injected at each trigger point. I injected trigger points, 1 midline L5-S1 level, 2 other lumbar paraspinal muscles right and left L4-5 level. Fluoroscopy was used to avoid damaging any spinal cord stimulator leads. 5 cc solutions were used at each point.Total solution consists of 15 ml 0.5%Ropivacaine mixed with 40 mg Depomedrol. Disposition. Patient tolerated the procedure well. No complication. Discharged home in stable condition.
[2024-12-31 09:42] VITALS: BP 126/76; PULSE 76
--- NOTE | 2024-12-31 10:26 | FL ---
EXAMINATION TYPE: FL guided pain mgmt statistic DATE OF EXAM: 12/31/2024 10:19 AM COMPARISON: Pre Operative Images if available both CT/MRI or plain film CLINICAL INDICATION: Male, 69 years old with history of TRIGGER POINT INJECTION; TECHNIQUE: FL guided pain mgmt statistic, multiple fluoroscopic images provided for procedure. DAP: 0.29308 mGym2 Gycm2 uGym2 cGycm2 or equivalent. FINDINGS: Fluoroscopic images during injection for pain management demonstrate multilevel degeneration changes throughout the spine. No evidence for fracture. No acute process identified. IMPRESSION: 1. No evidence for intraoperative complication. 2. Please see the operative/procedural note for further details. [facility], , 12/31/2024 10:24 AM
== END 2024-12-31 09:42 | disposition home or self-care (01) ==
LOC: ORPAIN 08:07
PROVIDERS: ATTEND Pain Medicine Interventional Pain Medicine
DX: M79.18 Myalgia, other site (principal); Z79.01 Long term (current) use of anticoagulants; Z79.82 Long term (current) use of aspirin; Z79.899 Other long term (current) drug therapy; Z88.8 Allergy status to other drugs, medicaments and biological substances
CPT/HCPCS: 20553; J2795; J1010

== ENCOUNTER → 2025-02-02 | Outpatient (CLI) | payer MEDICARE ==
--- NOTE | 2025-02-02 19:08 | P.PAINPG ---
PQRS Measure Charge Sheet Comment: A 69 yr old male w at side with a history of severe and chronic LBP secondary to radiculopathy, spondylosis and facet arthropathy without myelopathy, myeofascial pain presents today for medication refills and evaluation s/p BL TPIs L1-S1 #1. Pt states he experienced 50 % x 2 wks s/p procedure. Pain level is provoked at 5-6 /10 in intensity, intermittent, localized in the L lumbar spine, predominantly axial, dull in character w occasional shooting towards the LLE. Pain is provoked by standing, walking, bending and lifting. Pain is alleviated with PT in 2020, chiropractic treatments twice a week x 1 yr in 2020, physician guided home stretches on R side since 2020, medications, use of a cane for ambulatory assistance, heat, reclining, repositioning and rest. Pt uses a pneumatic ambulatory device to aid in ambulation. Interventional pain procedures completed include Thoracolumbar SCS Implant, BL TPIs L1-S1 x1 Patient is currently on [place] 7.5/325mg #60, Tylenol OTC, Neurontin, Celebrex Patient denies any side effects of the medication(s), denies excessive drowsiness or sleepiness, denies suicidal ideation and reports that the current pain medication is helping to control the pain and improve activities of daily living. Patient denies any motor or sensory deficits. Patient denies any fever or night sweats, denies any change in the bowel movements or urination. Physical Examination: -Constitutional: Cooperative. Not in acute distress . - Neurologic: Cranial nerve II to XII intact. No focal neurological deficits. - Psychatric: Alert & oriented x 3. Matching mood & appropriate affect. Judgment and insight intact. - Musculoskeletal: Cervical spine: Muscle bulk/ tone/ strength in the bilateral upper extremities normal Vertebral body tenderness to palpation over Sp[place]ling test positive Distraction test positive Facet loading test positive TTP Thoracic spine Muscle bulk / tone/ strength in the bilateral paraspinal muscles normal Vertebral body tender to palpation over Facet loading test positive TTP Lumbar spine: Motor bulk/ tone/ strength lower extremities , thigh and legs : 5/5 Deep tendon reflexes : Normal Knee Jerk. Normal Ankle Jerk . Vertebral body tenderness to palpation over L5 [place] Test positive L L4-L5/ L5-S1 Taut bands w twitch response over BL L1-S1 Lumbar Facet Loading Test positive Straight Leg Raise: positive at 30 degrees right side/ left side Gaenslen's Test positive Sacral spine : Severe tenderness over the Sacroiliac joint: right side / left side Range of motion: Flexion of the lumbar spine <60 degrees Range of motion: Extension of the lumbar spine <20 degrees Gaenslen's Test positive right side / left side Galilea test: positive right side / left side Thigh Thrust Test positive right side / left side Sacral Thrust Test positive right side / left side Assessment and plan: Chronic LBP secondary to radiculopathy, spondylosis with facet arthropathy without myelopathy, Myofascial pain Recommendation of medication management and L TFESI L4-L5/ L5-S1 #1. Risks, benefits of procedure discussed and patient verbalized understanding. Protocol for discontinuation/continuation of medication surrounding procedure discussed. [place] 7.5/325mg #90 , Diclofenac gel BID w 2 RF. Use, side effects, adverse reactions, safe storage discussed. Narcotic agreement signed 06/30/24. UDS from 09/22/24 reviewed and consistent. All questions answered. I have spent less than 30 minutes on patient care today. Dr Dobson was availa ble by phone for the evaluation of this patient. The time was used to review the medical records including relevant urine studies and Prescription history (MAPs), review of the available imaging, evaluation and examination of the patient, coordination of care with the medical staff and if applicable referring physicians, as well as creation of the medical record PQRS Narrative: Smoking Status Current every day smoker Narcotic Agreement Date Signed 06/30/24 Hx Alcohol Use (MH) Yes: Rare Home Medications: Ambulatory Orders Simvastatin 20 mg PO HS 09/05/14 Aspirin EC [Ecotrin] 81 mg PO HS 12/15/14 Celecoxib [CeleBREX] 200 mg PO DAILY 04/03/15 Cholecalciferol (Vitamin D3) [Vitamin D3 (3000 Iu)] 50 mcg PO DAILY 05/30/21 Escitalopram [Lexapro] 10 mg PO DAILY 05/30/21 Omeprazole [PriLOSEC] 40 mg PO DAILY 10/10/21 Fluticasone/Umeclidin/Vilanter [Trelegy Ellipta 100-62.5-25] 1 inhalation INHALATION DAILY 12/12/21 Multivitamins, Thera [Multivitamin (formulary)] 1 tab PO DAILY 11/19/22 Losartan/Hydrochlorothiazide [Losartan-Hctz 100-12.5 mg Tab] 1 tab PO DAILY 03/04/23 Acetaminophen [Tylenol Arthritis] 650 mg PO DAILY PRN 05/28/23 Gabapentin [Neurontin] 400 mg PO TID 05/28/23 Apixaban [Eliquis] 5 mg PO BID 11/17/23 Cyclobenzaprine [Flexeril] 10 mg PO HS 06/30/24 DULoxetine HCL [Cymbalta] 60 mg PO DAILY 06/30/24 Diclofenac Sodium Gel [Voltaren 1% Gel] 50 gm TOPICAL BID 30 Days #1 each 0 12/15/24 Ipratropium-Albuterol Nebulize [Duoneb 0.5 mg-3 mg/3 ml Soln] 3 ml INHALATION TID 12/30/24 HYDROcodone/APAP 7.5-325MG [[place] 7.5-325] 1 tab PO TID PRN 30 Days #90 tab 02/02/25 HYDROcodone/APAP 7.5-325MG [[place] 7.5-325] 1 tab PO TID PRN 30 Days #90 tab 02/02/25 Controlled Substance Measures - Controlled Substance Measures Is patient prescribed a controlled substance at discharge?: Yes When asked, does pt state using other controlled substances?: No If prescribed controlled substance>3 days was MAPS reviewed?: Yes
== END ==
LOC: PNWHC3 12:18
PROVIDERS: ATTEND Specialist
DX: M47.26 Other spondylosis with radiculopathy, lumbar region (principal); G89.29 Other chronic pain; F17.200 Nicotine dependence, unspecified, uncomplicated; Z91.048 Other nonmedicinal substance allergy status

== ENCOUNTER 2025-03-03 10:40 | Day surgery (SDC) | payer MEDICARE ==
[2025-02-28 15:11] VITALS: BMI 50.2
[2025-03-03 12:17] VITALS: TEMP 97.8
[2025-03-03] MEDS ORDERED: methylPREDNISolone ACETATE 80 MG/ML 1 ML VIAL ONE (12:24)
[2025-03-03] MEDS ORDERED: IOPAMIDOL M200 10 ML VIAL ONE (12:24)
--- NOTE | 2025-03-03 12:38 | P.PCN ---
Date of Procedure: 03/03/25 Procedure(s) Performed: PREOPERATIVE DIAGNOSIS: 1-Lumbar radiculopathy. POSTOPERATIVE DIAGNOSIS: 1-lumbar radiculopathy. PROCEDURE 1. Transforaminal epidural steroid injection under fluoroscopic guidance at left L4-5, left L5-S1 level. (Fluoroscopy on file in the radiology Department ) 2. Lumbar epidurogram . ANESTHESIA: Local with 1% lidocaine 3 ml. EBL: Minimal PROCEDURE INDICATION: The patient with low back pain and radiculopathy symptoms unresponsive to conservative treatment. PROCEDURE DESCRIPTION / TECHNIQUE: The patient was seen and identified in the preoperative area. Risks, benefits, complications, and alternatives were discussed with the patient. The patient agreed to proceed with the procedure and signed the consent, and vital signs were stable. Patient was taken to the OR and time out was completed. The patient was placed in the prone position on procedure table and a pillow was placed under the abdomen to reduce lumbar lordosis. The lumbosacral area was prepped and draped in the usual sterile fashion. Critical pause was taken. Vital signs were closely monitored during the procedure. Using oblique fluoroscopy, the chin of the ``Rob dog at left L4-5 level was identified, and the skin and deeper tissues just below was localized with 1% lidocaine. Subsequently, a 22-gauge 5-inch spinal needle was advanced under a tunneled view fluoroscopic guidance just underneath the chin of the ``Rob dog at the left L4-5 Under lateral fluoroscopy, the needle was then advanced to the posterior border of the interforaminal space. After negative aspiration of CSF and blood and with no paresthesias, 1 mL Isovue 200 contrast dye was injected excellent epidurogram and outlining of the nerve root Subsequently, 3 mL of block solution containing 40 mg Depo-Medrol and 2 mL of 0.9% normal saline PF was injected. Needle was removed and the same procedure was repeated at the left L5 S1 level . At the end of the procedure, skin was cleansed, and bandages were applied. COMPLICATIONS:none DISPOSITION / PLANS: The patient was placed in a supine position and transferred to the recovery area in a stable condition for observation. There was no evidence of lower extremity motor or sensory deficit after the procedure. Patient was discharged from the recovery room after meeting discharge criteria. Home discharge instructions were given to the patient by the staff. The patient was reexamined prior to discharge.
[2025-03-03 12:55] VITALS: RESP 16
--- NOTE | 2025-03-03 12:58 | FL ---
EXAMINATION TYPE: FL guided pain mgmt statistic DATE OF EXAM: 03/03/2025 FLUOROSCOPY Lumbar transforaminal epidural injection left side FL 8.4 DAP 0.15016 One image is submitted. [facility], , 03/03/2025 12:56 PM
[2025-03-03 13:01] VITALS: BP 130/85; PULSE 74
== END 2025-03-03 13:17 | disposition home or self-care (01) ==
LOC: ORPAIN 10:40
PROVIDERS: ATTEND Specialist
DX: M54.16 Radiculopathy, lumbar region (principal); Z91.048 Other nonmedicinal substance allergy status
CPT/HCPCS: 64483; 64484; Q9966; J1010

== ENCOUNTER → 2025-03-10 | Outpatient (CLI) | payer MEDICARE ==
--- NOTE | 2025-03-10 10:53 | CTL ---
EXAMINATION TYPE: CT Low Dose Lung DATE OF EXAM ORDERED: 03/10/2025 COMPARISON: Prior study December 23, 2023 and older study June 20, 2023 CLINICAL INDICATION: Male, 69 years old with history of Z87.891 personal hx tobacco use; PHH, Former smoker, quit x8yrs. Hx of 2PPD x25yrs., Lung cancer screening, History of Smoking/tobacco use. TECHNIQUE: Low dose computed tomography scan was performed through the chest at 1 mm thick sections a nd reconstructed images in multiple planes at 1 mm and [address] DLP: 170.[address] CTDI: 4.3 mGy Automated exposure control for dose reduction was used. CT DIAGNOSTIC QUALITY: Satisfactory FINDINGS: Nodules: A few scattered small nodules are redemonstrated. Stable 6 mm anterior medial right upper lo be pulmonary nodule image 95 for reference. For reference, there is stable 8 mm right lower lobe pulmonary nodule abutting the fissure axial imag e 161. There is stable 6 to 7 mm nodule left mid to lower lung abutting the fissure axial image 176 r edemonstrated. New focal linear scarring posterior right upper lobe with 6 mm nodularity axial image 84. LUNGS: COPD: Severity: Mild to moderate Fibrosis: Severity: None Lymph nodes: None Other findings: Enlarged main pulmonary artery redemonstrated raising concern for underlying pulmonar y artery hypertension. Ascending aortic aneurysm up to 5.0 cm axial image 27 is noted. RIGHT PLEURAL SPACE: Effusion: None Calcification: None Thickening: None Pneumothorax: None LEFT PLEURAL SPACE: Effusion: None Calcification: None Thickening: None Pneumothorax: None HEART: Heart Size: Normal Coronary Calcification: Small Pericardial Effusion: None OTHER FINDINGS: Upper abdomen: Visualized liver is heterogeneously hypodense consistent with diffuse fatty infiltrati ve hepatocellular disease Bony thorax: Scoliotic curvature is seen Supraclavicular region: None Other: None IMPRESSION: Small bilateral nodules redemonstrated with new 6 mm right upper lobe nodule along linear scarring identified. CT LUNG RAD AND CT CHEST RECOMMENDATION: Lung-Rad 3 Probably Benign: 6 month follow-up LDCT. S Modifier (other clinically significant findings): S Thoracic aortic aneurysm up to 5.0 cm. Advise Cardiothoracic surgical follow-up [facility], , 03/10/2025 10:50 AM
== END | disposition home or self-care (01) ==
LOC: RADCTMAIN 10:06
PROVIDERS: ATTEND Family Medicine
DX: Z12.2 Encounter for screening for malignant neoplasm of respiratory organs (principal); R91.8 Other nonspecific abnormal finding of lung field; J98.4 Other disorders of lung; Z87.891 Personal history of nicotine dependence
CPT/HCPCS: 71271

== ENCOUNTER 2025-04-07 08:34 | Day surgery (SDC) | payer MEDICARE ==
[2025-04-07] MEDS: IV FLUID CONTINUATION 1,000 ML IV ONE ×2 (08:56→11:00)
[2025-04-07 09:06] VITALS: TEMP 97.7
[2025-04-07] MEDS: LACTATED RINGERS 1,000 ML IV SCH (09:12)
[2025-04-07] MEDS ORDERED: fentaNYL (PF) 50 MCG/ML 2 ML AMP ONE (10:16)
[2025-04-07] MEDS ORDERED: ROPIVACAINE 5MG/ML 20ML VIAL ONE (10:16)
[2025-04-07] MEDS ORDERED: MIDAZOLAM 2 MG/2 ML VIAL ONE (10:16)
--- NOTE | 2025-04-07 11:04 | P.PCN ---
Description of Procedure: Preprocedure diagnosis. 1. Lumbar spondylosis with facet joint arthropathy without myelopathy. 2. Lumbar degenerative disc disease. Procedure diagnosis. 1. Lumbar spondylosis with facet joint arthropathy without myelopathy. Space 2. Lumbar degenerative disc disease. Procedure.Bilateral radiofrequency thermocoagulation L3, L4 and L5 medial branch, with fluoroscopic guidance (fluoroscopy images are available in the radiology department) (to Denervate the facet joint at bilateral L4- 5 and L5-S1 levels) Anesthesia. Moderate sedation with intravenous Versed 2 mg and fentanyl 50 g and local infiltration with Lidocaine. Continuous pulse OX,BP,EKG and verbal communication was maintained with patient. Time. Start 1016. Stop 1052. EBL minimal. Procedure indication. The patient with low back pain secondary to lumbar facet arthropathy who he had more than 50% relief of her pain with previous diagnostic lumbar medial branch block with local anesthetics.The patient was seen and identified in the preoperative area. Risks: Benefits, complications, including but not limited to risk of infection, bleeding, ALLERGIC reaction to the medications and no complete pain relief and alternatives were discussed with the patient, the patient admitted to proceed with the procedure and signed the consent. Procedure description/technique. Patient was taken to the OR and timeout was completed. The patient was placed in prone position on the procedure table. The lumbar area was prepped and draped in the usual sterile fashion. After injecting 5 ml of 1% Lidocaine subcutaneously,using AP and then oblique, lateral view of fluoroscopy, 18-gauge 100 mm radiofrequency cannula with a 10 mm active tip was advanced and guided by fluoroscopy at the junction of supirior articular process with RIGHT ala of the sacrum, transverse process of L4&L5. Each site then underwent positive sensory testing with 50 Hz and 0-1 V and negative motor testing at 2.5 Hz and 0-3 V with local stimulation but no radicular symptoms down the leg. Thereafter each sites underwent radiofrequency thermocoagulation at 80C for 90 seconds after injecting 1 mL of preservative- free 0.5% ropivacaine. Repeat radiofrequency ablation was done at each points after rotating the needle 180 with same setting. This same procedure was repeated twice on the LEFT side at the junction of superior articular process with ala of sacrum,transverse process of L4, L5 with the same settings after positive sensory,negative motor stimulation and infi ltration of 1.0 ml 5% Ropivacaine at each site . RF needles were taken out. At the end of the procedure the skin was cleansed and Band-Aids were applied. Disposition patient tolerated the procedure well. No complication. She was placed in supine position and transferred to the recovery area in stable condition for observation and was discharged home from recovery room after meeting discharge criteria. Discharge instructions given to the patient by the staff. The patient were examined prior to discharge the patient will schedule a follow-up in the clinic in 2-4 weeks.
--- NOTE | 2025-04-07 11:22 | FL ---
EXAMINATION TYPE: FL guided pain mgmt statistic DATE OF EXAM: 04/07/2025 10:58 AM COMPARISON: Pre Operative Images if available both CT/MRI or plain film CLINICAL INDICATION: Male, 69 years old with history of RF LUMBAR; TECHNIQUE: FL guided pain mgmt statistic, multiple fluoroscopic images provided for procedure. DAP: 0.50364 mGym2 Gycm2 uGym2 cGycm2 or equivalent. FINDINGS: Fluoroscopic images during injection for pain management demonstrate multilevel degeneration changes throughout the spine. No evidence for fracture. No acute process identified. IMPRESSION: 1. No evidence for intraoperative complication. 2. Please see the operative/procedural note for further details. [facility], , 04/07/2025 11:20 AM
[2025-04-07 11:23] VITALS: BP 127/83; PULSE 70; RESP 17
== END 2025-04-07 11:32 | disposition home or self-care (01) ==
LOC: ORPAIN 08:34
PROVIDERS: ATTEND Pain Medicine Interventional Pain Medicine
DX: M47.816 Spondylosis without myelopathy or radiculopathy, lumbar region (principal); M51.369 Other intervertebral disc degeneration, lumbar region without mention of lumbar back pain or lower extremity pain
CPT/HCPCS: 64635; 64636; J2250; J3010; J2795; 99152; 99153

== ENCOUNTER → 2025-05-18 | Outpatient (CLI) | payer MEDICARE ==
[2025-05-18 11:01] VITALS: BP 136/87; PULSE 84; RESP 16
--- NOTE | 2025-05-18 14:20 | P.PAINPG ---
Objective - Vital Signs Vital signs: Vital Signs Temp Pulse 84 05/18/25 10:51 Resp 16 05/18/25 10:51 BP 136/87 05/18/25 10:51 Pulse Ox 94 L 05/18/25 10:51 FiO2 Intake & Output 05/17/25 05/18/25 05/18/25 18:59 06:59 18:59 Weight 162.386 kg PQRS Measure Charge Sheet Mode of Arrival: Walker Comment: A 69 yr old male w at side with a history of severe and chronic LBP secondary to radiculopathy, spondylosis and facet arthropathy without myelopathy, myeofascial pain presents today for medication refills and evaluation s/p BL RFA L4-L5/ L5-S1. Pt states he experienced 65 % pain relief s/p procedure. Pain level is provoked at 5-6 /10 in intensity, intermittent, localized in the lumbar spine, predominantly axial, sharp in character without shooting pain. Pain is provoked by standing, walking for periods > 5 min Pain is alleviated with PT in 2020, chiropractic treatments twice a week x 1 yr in 2020, physician guided home stretches on R side since 2020 (pain provoked w L sided movements), medications, use of a walker for ambulatory assistance, heat, reclining, repositioning and rest. Pt uses a pneumatic ambulatory device to aid in ambulation. Interventional pain procedures completed include BL RFA L3-L5 x2 (Fall 2021, 04/07/25), Thoracolumbar SCS Implant, BL TPIs L1-S1 x1 Patient is currently on Mcfarland 7.5/325mg #60, Tylenol OTC, Neurontin, Celebrex Patient denies any side effects of the medication(s), denies excessive drowsiness or sleepiness, denies suicidal ideation and reports that the current pain medication is helping to control the pain and improve activities of daily living. Patient denies any motor or sensory deficits. Patient denies any fever or night sweats, denies any change in the bowel movements or urination. Physical Examination: -Constitutional: Cooperative. Not in acute distress . - Neurologic: Cranial nerve II to XII intact. No focal neurological deficits. - Psychatric: Alert & oriented x 3. Matching mood & appropriate affect. Judgment and insight intact. - Musculoskeletal: Cervical spine: Muscle bulk/ tone/ strength in the bilateral upper extremities normal Vertebral body tenderness to palpation over Spurling test positive Distraction test positive Facet loading test positive TTP Thoracic spine Muscle bulk / tone/ strength in the bilateral paraspinal muscles normal Vertebral body tender to palpation over Facet loading test positive TTP Lumbar spine: Motor bulk/ tone/ strength lower extremities , thigh and legs : 5/5 Deep tendon reflexes : Normal Knee Jerk. Normal Ankle Jerk . Vertebral body tenderness to palpation over L5 [place] Test positive L L4-L5/ L5-S1 Taut bands w twitch response over BL L1-S1 Lumbar Facet Loading Test positive BL L4-L5/ L5-S1 Straight Leg Raise: positive at 30 degrees right side/ left side Gaenslen's Test positive Sacral spine : Severe tenderness over the Sacroiliac joint: right side / left side Range of motion: Flexion of the lumbar spine <60 degrees Range of motion: Extension of the lumbar spine <20 degrees Gaenslen's Test positive right side / left side Galilea test: positive right side / left side Thigh Thrust Test positive right side / left side Sacral Thrust Test positive right side / left side Assessment and plan: Chronic LBP secondary to radiculopathy, spondylosis with facet arthropathy without myelopathy, Myofascial pain Recommendation of medication management. Mcfarland 7.5/325mg #90 , Diclofenac gel BID w 2 RF. Use, side effects, adverse reactions, safe storage discussed. Narcotic agreement signed 06/30/24. UDS 05/18/25. All questions answered. I have spent less than 30 minutes on patient care today. Dr Dobson was available by phone for the evaluation of this patient. The time was used to review the medical records including relevant urine studies and Prescription history (MAPs), review of the available imaging, evaluation and examination of the patient, coordination of care with the medical staff and if applicable referring physicians, as well as creation of the medical record - Pain Location Bilateral Lower Back Non-Pharmacological Interventions: Elevation, Inactivity, Position/Reposition, Relaxation Technique, Sitting Pharmacological Interventions: Block, Epidural, PRN Medication, Scheduled Medication, Topical Medication PQRS Narrative: Smoking Status Current every day smoker Narcotic Agreement Date Signed 06/30/24 Blood Pressure 136/87 Pain Intensity [Bilateral 6 Lower Back] Scale Used Numeric (1 - 10) Hx Alcohol Use (MH) Yes: Rare Home Medications: Ambulatory Orders Simvastatin 20 mg PO HS 09/05/14 Aspirin EC [Ecotrin] 81 mg PO HS 12/15/14 Celecoxib [CeleBREX] 200 mg PO DAILY 04/03/15 Cholecalciferol (Vitamin D3) [Vitamin D3 (3000 Iu)] 50 mcg PO DAILY 05/30/21 Escitalopram [Lexapro] 10 mg PO DAILY 05/30/21 Omeprazole [PriLOSEC] 40 mg PO DAILY 10/10/21 Fluticasone/Umeclidin/Vilanter [Trelegy Ellipta 100-62.5-25] 1 inhalation INHALATION DAILY 12/12/21 Multivitamins, Thera [Multivitamin (formulary)] 1 tab PO DAILY 11/19/22 Losartan/Hydrochlorothiazide [Losartan-Hctz 100-12.5 mg Tab] 1 tab PO DAILY 03/04/23 Gabapentin [Neurontin] 600 mg PO TID 05/28/23 Apixaban [Eliquis] 5 mg PO BID 11/17/23 Cyclobenzaprine [Flexeril] 10 mg PO HS 06/30/24 DULoxetine HCL [Cymbalta] 60 mg PO DAILY 06/30/24 Ipratropium-Albuterol Nebulize [Duoneb 0.5 mg-3 mg/3 ml Soln] 3 ml INHALATION TID 12/30/24 Diclofenac Sodium Gel [Voltaren 1% Gel] 50 gm TOPICAL BID 30 Days #1 each 02/02/25 HYDROcodone/APAP 7.5-325MG [Mcfarland 7.5-325] 1 tab PO TID PRN 30 Days #90 tab 05/18/25 HYDROcodone/APAP 7.5-325MG [Mcfarland 7.5-325] 1 tab PO TID PRN 30 Days #90 tab 05/18/25 HYDROcodone/APAP 7.5-325MG [Mcfarland 7.5-325] 1 tab PO TID PRN 30 Days #90 tab 05/18/25 Controlled Substance Measures - Controlled Substance Measures Is patient prescribed a controlled substance at discharge?: Yes When asked, does pt state using other controlled substances?: No If prescribed controlled substance>3 days was MAPS reviewed?: Yes
== END ==
LOC: PNWHC3 10:38
PROVIDERS: ATTEND Specialist
DX: M47.26 Other spondylosis with radiculopathy, lumbar region (principal); F17.200 Nicotine dependence, unspecified, uncomplicated; Z91.048 Other nonmedicinal substance allergy status
CPT/HCPCS: 80307; 99212